=== PATIENT | female | born 1990 | race Two or more races ===

== ENCOUNTER 2019-07-18 11:49 | Inpatient (IN) | payer MEDICAID ==
[~2019-07-18 11:49] MED LIST: BUPIVACAINE HCL 0.5%/EPI 1:200000 INJ 1.8 ML CARTRIDGE ONE; FENTANYL CITRATE INJ/PF 100 MCG/2 ML AMPUL ONE; LIDOCAINE 2%/EPINEPHRINE INJ 1.7 ML CARTRIDGE ONE; MIDAZOLAM 2 MG/2 ML INJ ONE; PROPOFOL INJ 200 MG/20 ML VIAL IV ONE
[2019-07-18] MEDS ORDERED: OXYMETAZOLINE HCL 0.05% NASAL SPRAY 15 ML BOTTLE ONE (12:46)
[2019-07-18] MEDS ORDERED: FENTANYL CITRATE INJ/PF 100 MCG/2 ML AMPUL IV PRN ×3 (13:29)
[2019-07-18] MEDS ORDERED: MEPERIDINE HCL/PF INJ 25 MG/1 ML DISP.SYRIN IV PRN (13:29)
[2019-07-18] MEDS ORDERED: DIPHENHYDRAMINE HCL 50 MG/ML VIAL IV PRN (13:29)
[2019-07-18] MEDS ORDERED: PROMETHAZINE HCL INJ 25 MG/1 ML VIAL IV PRN (13:29)
[2019-07-18] MEDS ORDERED: SUCCINYLCHOLINE CHLORIDE INJ 200 MG/10 ML VIAL ONE (14:06)
--- NOTE | 2019-07-18 14:35 | Operative Report ---
Operative Report DATE OF SURGERY: 07/18/19 PREOPERATIVE DIAGNOSIS: Dental caries POSTOPERATIVE DIAGNOSIS: Same OPERATION: Surgical removal of all remaining teeth numbers 2, 3, 4, 5, 6, 12, 13, 14, 15, 19, 20, 21, 22, 23, 24, 25, 27, 28 and 29 with alveoloplasty of the upper left quadrant SURGEON: ROSAURA PETTIT ANESTHESIA: GA TISSUE REMOVED OR ALTERED: Teeth and bone which were discarded COMPLICATIONS: None ESTIMATED BLOOD LOSS: 25 mL INTRAOPERATIVE FINDINGS: Grossly decayed and nonrestorable teeth PROCEDURE: The patient was brought into operating room #4 and placed on the operating room table in supine position. General anesthesia was induced via a peripheral IV and continued utilizing nasoendotracheal intubation. The patient was then prepped and draped in the usual fashion for an intraoral procedure. A total of 4 carpules of 2% Lidocaine with 1:100K Epi and 2 carpules of 0.5% Marcaine with 1:200K Epi were delivered to the planned surgical sites via both infiltration and nerve block. The oral cavity and oropharynx were suctioned and a moistened oropharyngeal throat pack was placed. A bite block was used throughout the procedure. Full thickness mucoperisteal flaps were elevated. Ostectomy was completed as needed. Teeth were sectioned as needed. Teeth were delivered with elevators and forceps. Alveoloplasties were completed using rongeurs and bone files. All sites debrided and irrigated. No sinus exposure noted. Mandible intact post op. JIMMIE not visualized. Wounds reapproximated and sutured with 4-0 chromic gut. The oral cavity was suctioned and found to be free of debris. The throat pack was removed. The oropharynx was suctioned. Gauze packs were placed bilaterally to aid in continued hemastasis. The patient was awakened from general anesthesia, extubated in the operating room and taken to recovery in spontaneous breathing fashion.
[2019-07-18] MEDS ORDERED: OXYCODONE-ACETAMINOPHEN 5-325 MG TABLET ONE (14:58)
[2019-07-18] MEDS ORDERED: OXYCODONE-ACETAMINOPHEN 5-325 MG TABLET PO PRN (15:30)
[2019-07-18] MEDS ORDERED: MAG HYDROX/AL HYDROX/SIMETH SUSP 30 ML UDCUP PO PRN (19:36)
[2019-07-18] MEDS ORDERED: ONDANSETRON HCL INJ/PF 4 MG/2 ML SDV IV PRN (19:36)
[2019-07-18] MEDS ORDERED: MAGNESIUM HYDROXIDE SUSP 30 ML UDCUP PO PRN (19:36)
[2019-07-18] MEDS ORDERED: DIAZEPAM INJ 10 MG/2 ML DISP.SYRIN IV PRN (19:51)
[2019-07-18] MEDS ORDERED: ACETAMINOPHEN 325 MG TABLET PO PRN (19:51)
[2019-07-18] MEDS ORDERED: MORPHINE SULFATE 10 MG/ML INJ IV PRN ×2 (19:51→20:21)
[2019-07-18] MEDS ORDERED: ACETAMINOPHEN 650 MG SUPP.RECT PR PRN (19:51)
[2019-07-18] MEDS ORDERED: DEXTROSE 40% GEL 15 GM TUBE PO PRN ×2 (19:58)
[2019-07-18] MEDS ORDERED: GUAIFENESIN SYRP 200 MG/10 ML UDC PO PRN (19:58)
[2019-07-18] MEDS ORDERED: DEXTROSE 50%-WATER 25 GM/50 ML DISP.SYRIN IV PRN ×2 (19:58)
[2019-07-18] MEDS ORDERED: GLUCAGON,HUMAN RECOMB 1 MG INJ IM PRN (19:58)
--- NOTE | 2019-07-18 20:21 | RADIOLOGY REPORT (SQ) ---
EXAM DESCRIPTION: XR CHEST 1 VIEW COMPLETED DATE/TME: 07/18/2019 00:00 CLINICAL HISTORY: post op COMPARISON: None FINDINGS: Decreased lung volumes could be secondary to underinflation. The cardiac silhouette is prominent in size however could be secondary to AP technique. Crowding of the pulmonary vessels could be secondary to underinflation. No discrete arlene pulmonary edema noted. There is no pneumothorax. Increased opacity at the lung bases may represent atelectasis. IMPRESSION: Increased opacities at the lung bases may represent atelectasis. Decreased lung volumes could be secondary to underinflation. Recommend follow-up.
--- NOTE | 2019-07-18 20:24 | PDOC H&P ---
History of Present Illness Admission Date/PCP: 07/18/2019 19:59 FREDDY RODNEY DO Patient complains of: Postoperative hypoxia History of Present Illness: VIOLETTA SINGH is a 29 year old female who underwent oral surgery earlier today having her remaining teeth removed via ambulatory surgery by Dr. Sullivan with nasotracheal intubation anesthesia. She tolerated her surgery well but postoperatively was noted to be coughing and was unable to maintain an O2 sat greater than 90% on room air. Patient has Down syndrome and is cognitively unable to contribute to her history. She was in good health prior to surgery with an O2 sat of 100% on room air. Her O2 sat was 92 to 96% on 2 L of oxygen per nasal cannula and she appeared comfortable during my evaluation. The remainder of her vital signs have been stable throughout course. Due to her acute respiratory failure with hypoxia she is admitted observation status for further evaluation and treatment. Past Medical History Past Medical History: Taken from available records Cardiac Medical History: Reports: Hyperlipidema Denies: Coronary Artery Disease, Myocardial Infarction, Hypertension Pulmonary Medical History: Denies: Asthma, Bronchitis, Chronic Obstructive Pulmonary Disease (COPD), Pneumonia EENT Medical History: Reports: Nose - Allergic rhinitis Denies: Cataracts, Ears - Hearing aids Neurological Medical History: Reports: Seizures Denies: Hemorrhagic CVA, Ischemic CVA, Multiple Sclerosis Endocrine Medical History: Reports: Diabetes Mellitus Type 2, Obesity Denies: Diabetes Mellitus Type 1, Hyperthyroidism, Hypothyroidism Renal/ Medical History: Denies: Chronic Kidney Disease, Nephrolithiasis Malignancy Medical History: Reports: None GI Medical History: Denies: Cirrhosis, Gastroesophageal Reflux Disease, Hepatitis, Peptic Ulcer Disease Musculoskeltal Medical History: Denies: Arthritis, Gout Skin Medical History: Denies: Eczema, Psoriasis Psychiatric Medical History: Reports: Depression Denies: Alcohol Dependency, Substance Abuse, Tobacco Dependency Traumatic Medical History: Reports: None Hematology: Denies: Anemia, Bleeding Tendencies Infectious Medical History: Reports: None Past Surgical History Past Surgical History: Taken from available records Past Surgical History: Reports: Orthopedic Surgery - Correction of clubfoot Social History Information Source: Friend - [facility], [facility] Records Lives with: Skilled Nursing Smoking Status: Never Smoker Electronic Cigarette use?: Yes Frequency of Alcohol Use: None Hx Recreational Drug Use: No Drugs: None Hx Prescription Drug Abuse: No - Advance Directive Resuscitation Status: Full Code Surrogate healthcare decision maker:: Edgar Singh Family History Family History: Family history is unavailable Parental Family History Reviewed: No Children Family History Reviewed: No Sibling(s) Family History Reviewed.: No Medication/Allergy Home Medications: Atorvastatin Calcium [Lipitor 20 mg Tablet] 20 mg PO QHS 07/17/19 Escitalopram Oxalate [Lexapro 10 mg Tablet] 10 mg PO QHS 07/17/19 Loratadine [Claritin 10 mg Tablet] 10 mg PO DAILY 07/17/19 Sitagliptin Phos/Metformin HCl [Janumet 50-1,000 Mg Tablet] 1 each PO ASDIR PRN 07/17/19 Topiramate [Topamax 25 mg Tablet] 25 mg PO DAILY 07/17/19 Trazodone HCl [Desyrel] 100 mg PO ASDIR PRN 07/17/19 Allergies/Adverse Reactions: ENVIRONMENTAL Allergy (Uncoded 07/17/19 09:01) Review of Systems ROS unobtainable: Due to mental status - Cognitive impairment due to Down syndrome Physical Exam Vital Signs: Temp Pulse Resp BP Pulse Ox 97.9 F 74 14 118/85 96 07/18/19 14:55 07/18/19 19:00 07/18/19 19:00 07/18/19 19:00 07/18/19 19:00 Intake & Output 07/16/19 07/17/19 07/18/19 23:59 23:59 23:59 Intake Total 500 Balance 500 Weight 55.79 kg 55.79 kg General appearance: PRESENT: no acute distress, cooperative Head exam: PRESENT: atraumatic, normocephalic Eye exam: PRESENT: conjunctiva pink, other - Typical facies of Down syndrome. ABSENT: conjunctival injection, scleral icterus Ear exam: PRESENT: normal external ear exam. ABSENT: bleeding, drainage Mouth exam: PRESENT: dry mucosa, neck supple Neck exam: ABSENT: thyromegaly, tracheal deviation Respiratory exam: PRESENT: rales - Scattered coarse central rales, rhonchi - Scattered coarse central rhonchi, symmetrical, unlabored Cardiovascular exam: PRESENT: RRR. ABSENT: clicks, gallop, rubs Pulses: PRESENT: normal radial pulses, normal dorsalis pedis pul Vascular exam: PRESENT: normal capillary refill. ABSENT: pallor GI/Abdominal exam: PRESENT: normal bowel sounds, soft Rectal exam: PRESENT: deferred Extremities exam: ABSENT: joint swelling, pedal edema Musculoskeletal exam: PRESENT: deformity - Clubfoot correction noted. ABSENT: dislocation Neurological exam: PRESENT: alert, awake, CN II-XII grossly intact, other - Cognitively impaired Psychiatric exam: PRESENT: other - Calm, cognitively impaired unable to assess Skin exam: PRESENT: dry, intact, warm. ABSENT: jaundice, rash, urticaria Results Laboratory Results: 07/18/19 12:24 Serum HCG, Qual NEGATIVE Assessment and Plan - Diagnosis (1) Acute postoperative respiratory failure Is this a current diagnosis for this admission?: Yes Plan: Patient will be treated with supplemental oxygen via nasal cannula utilizing the O2 protocol. She will be monitored closely with continuous pulse ox monitoring. She will receive a pulmonary toilet utilizing Xopenex and Mucomyst. She will be symptomatically treated with Robitussin as needed for cough. Postoperative pain will be treated with Nubain 5 to 10 mg IV every 3 hours on an as-needed basis using a sliding scale. (2) Acute respiratory failure with hypoxia Is this a current diagnosis for this admission?: Yes Plan: Patient will be treated with supplemental oxygen via nasal cannula utilizing the O2 protocol. She will be monitored closely with continuous pulse ox monitoring. She will receive a pulmonary toilet utilizing Xopenex and Mucomyst. She will be symptomatically treated with Robitussin as needed for cough. (3) Diabetes mellitus type 2 in obese Is this a current diagnosis for this admission?: Yes Plan: Patient will be continued on a diabetic diet and her usual diabetic therapy. Hemoglobin A1c will be obtained to assess efficacy of current therapy. Before meals and at bedtime Accu-Cheks will be obtained and sliding scale insulin will be administered for hyperglycemia with a hypoglycemic protocol in place. (4) Hyperlipidemia Qualifiers: Hyperlipidemia type: unspecified Qualified Code(s): E78.5 - Hyperlipidemia, unspecified Is this a current diagnosis for this admission?: Yes Plan: Patient will be continued on her current hyperlipidemia therapy. A lipid profile will be obtained to assess the efficacy of current therapy. (5) Seizure disorder Is this a current diagnosis for this admission?: Yes Plan: Patient will be continued on her usual seizure control medication and will be observed closely with seizure precautions taken. (6) Depression Qualifiers: Depression Type: dysthymia Qualified Code(s): F34.1 - Dysthymic disorder Is this a current diagnosis for this admission?: Yes Plan: Patient will be continued on her usual psychotropic medication for treatment of her dysthymi/depression. (7) Down syndrome Is this a current diagnosis for this admission?: Yes Plan: Patient will be treated with supportive and symptomatic cares with careful attention paid to her cognitive dysfunction. - Time Time Spent with patient: 15-24 minutes Medications reviewed and adjusted accordingly: Yes Anticipated discharge: SNF - Inpatient Certification Based on my medical assessment, after consideration of the patient's comorbidities, presenting symptoms, or acuity I expect that the services needed warrant INPATIENT care.: No I certify that my determination is in accordance with my understanding of Medicare's requirements for reasonable and necessary INPATIENT services [42 CFR 412.3e].: No Medical Necessity: Failure to Improve With Outpatient Therapy, Significant Comorbidiites Make Outpatient Treatment Too Risky, Need Close Monitoring Due to Risk of Patient Decompensation, Need For IV Fluids, Need For Continuous Telemetry Monitoring, Need for Nebulizer Therapy and Monitoring of Response, Need for Neurological Checks, Need for Pain Control, Risk of Complication if Not Cared For in Hospital, Risk of Diagnosis Which Will Require Inpatient Eval/Care/Monitoring
[2019-07-18] MEDS: HEPARIN SOD (PORCINE) 5,000 UNIT/ML 1 ML VIAL SUBCUT SCH (21:45)
[2019-07-18] MEDS: FAMOTIDINE INJ/PF 20 MG/2 ML SDV IV SCH (21:45)
[2019-07-18] MEDS: TRAZODONE HCL 50 MG TABLET PO SCH (21:45)
[2019-07-18] MEDS: INSULIN REG, HUMAN 100 UNIT/ML 3 ML VIAL (PYX) SUBCUT SCH (21:47)
[2019-07-18] MEDS: ATORVASTATIN CALCIUM 20 MG TABLET PO SCH (22:00)
[2019-07-18] MEDS: ESCITALOPRAM OXALATE 10 MG TABLET PO SCH (22:00)
[2019-07-18] MEDS: ACETYLCYSTEINE 20% SOLN 800 MG/4 ML VIAL.NEB NEB SCH (22:08)
[2019-07-18] MEDS: LEVALBUTEROL HCL NEB 0.63 MG/3 ML AMPUL NEB PRN (22:09)
[2019-07-19 04:35] LABS: HEMATOCRIT 36.7 % (36.0-47.0); MEAN CORPUSCULAR HEMOGLOBIN 26.3 pg (27.0-33.4); MEAN CORPUSCULAR HGB CONC 32.7 g/dL (32.0-36.0); MEAN CORPUSCULAR VOLUME 81 fl (80-97); PLATELET COUNT 231 10^3/uL (150-450); RED BLOOD COUNT 4.55 10^6/uL (3.72-5.28); RED CELL DISTRIBUTION WIDTH 16.1 % (11.5-14.0); WHITE BLOOD COUNT 13.3 10^3/uL (4.0-10.5)
[2019-07-19 05:02] LABS: ANION GAP 11 (5-19); BLOOD UREA NITROGEN 13 mg/dL (7-20); CALCIUM 8.7 mg/dL (8.4-10.2); CARBON DIOXIDE 24 mmol/L (22-30); CHLORIDE 103 mmol/L (98-107); GLUCOSE 174 mg/dL (75-110); POTASSIUM 4.5 mmol/L (3.6-5.0)
[2019-07-19] MEDS: HEPARIN SOD (PORCINE) 5,000 UNIT/ML 1 ML VIAL SUBCUT SCH ×3 (05:58→23:07)
[2019-07-19] MEDS: LEVALBUTEROL HCL NEB 0.63 MG/3 ML AMPUL NEB PRN ×2 (08:57→19:35)
[2019-07-19] MEDS: ACETYLCYSTEINE 20% SOLN 800 MG/4 ML VIAL.NEB NEB SCH ×2 (08:58→19:34)
[2019-07-19] MEDS ORDERED: LORATADINE 10 MG TABLET PO SCH (10:00)
[2019-07-19] MEDS: INSULIN REG, HUMAN 100 UNIT/ML 3 ML VIAL (PYX) SUBCUT SCH ×4 (10:20→23:07)
[2019-07-19] MEDS: METFORMIN HCL 500 MG TABLET PO SCH ×2 (10:25→17:48)
[2019-07-19] MEDS: SITAGLIPTIN PHOSPHATE 50 MG TABLET PO SCH ×2 (10:25→17:49)
[2019-07-19] MEDS: FAMOTIDINE INJ/PF 20 MG/2 ML SDV IV SCH (10:25)
[2019-07-19] MEDS: DOCUSATE SODIUM 100 MG/10 ML UDC PO SCH ×2 (10:25→17:49)
[2019-07-19] MEDS: TOPIRAMATE 25 MG TABLET PO SCH (10:26)
--- NOTE | 2019-07-19 13:23 | PDOC PROGRESS REPORT ---
Subjective Progress Note for:: 07/19/19 Subjective:: The patient has very congested breath sounds. She has slid down in the bed. She is also somewhat tachycardic. Interaction was limited due to her leg which barrier and underlying Down syndrome Reason For Visit: ACUTE RESPIRATORY FAILURE WITH HYPOXIA(POST Physical Exam Vital Signs: Temp Pulse Resp BP Pulse Ox 97.4 F 111 H 17 95/59 L 72 L 07/19/19 11:21 07/19/19 11:21 07/19/19 11:21 07/19/19 11:21 07/19/19 11:21 Pulse Oximeter Continuous Start: 07/18/19 19:55 Freq: RTQ4 Status: Active Protocol: Document 07/19/19 09:01 SAQIB (Rec: 07/19/19 09:06 [facility] [id number]) Pulse Oximetry Assessment Oxygen Flow Rate (L/min) 2 Oxygen Delivery Method Nasal Cannula Fraction of Inspired Oxygen (FIO2) 28 Equipment Usage Equipment Standby Continuous SpO2 Machine # [id number] Intake & Output 07/18/19 07/19/19 07/20/19 06:59 06:59 06:59 Intake Total 800 360 Output Total 50 Balance 750 360 Weight 55.79 kg 54.9 kg General appearance: PRESENT: mild distress Teeth exam: PRESENT: other - Extensive dental surgery Respiratory exam: PRESENT: rhonchi, symmetrical, tachypnea. ABSENT: rales, wheezes Cardiovascular exam: PRESENT: +S1, +S2, tachycardia GI/Abdominal exam: PRESENT: normal bowel sounds, soft. ABSENT: distended, tenderness Rectal exam: PRESENT: deferred Extremities exam: ABSENT: pedal edema Musculoskeletal exam: PRESENT: normal inspection Neurological exam: PRESENT: alert, awake, other - Unable to assess orientation due to language barrier Psychiatric exam: PRESENT: flat affect. ABSENT: agitated, anxious Results Laboratory Results: 07/19/19 03:38 07/19/19 03:38 07/19/19 07/19/19 03:38 03:38 WBC 13.3 H RBC 4.55 Hgb 12.0 Hct 36.7 MCV 81 MCH 26.3 L MCHC 32.7 RDW 16.1 H Plt Count 231 Sodium 137.7 Potassium 4.5 Chloride 103 Carbon Dioxide 24 Anion Gap 11 BUN 13 Creatinine 0.71 Est GFR ( Amer) > 60 Glucose 174 H Calcium 8.7 Magnesium 1.8 Impressions: Chest X-Ray 07/18/19 00:00 IMPRESSION: Increased opacities at the lung bases may represent atelectasis. Decreased lung volumes could be secondary to underinflation. Recommend follow-up. Assessment and Plan - Diagnosis (1) Acute postoperative respiratory failure Is this a current diagnosis for this admission?: Yes Plan: Patient will be treated with supplemental oxygen via nasal cannula utilizing the O2 protocol. She will be monitored closely with continuous pulse ox monitoring. She will receive a pulmonary toilet utilizing Xopenex and Mucomyst. She will be symptomatically treated with Robitussin as needed for cough. Postoperative pain will be treated with Nubain 5 to 10 mg IV every 3 hours on an as-needed basis using a sliding scale. 07/19/2019-patient still on supplemental oxygen. With her oral surgery and congested breath sounds pneumonia is certainly a possibility. I will repeat x- ray in the morning and initiate antibiotic therapy. (2) Acute respiratory failure with hypoxia Is this a current diagnosis for this admission?: Yes Plan: Patient will be treated with supplemental oxygen via nasal cannula utilizing the O2 protocol. She will be monitored closely with continuous pulse ox monitoring. She will receive a pulmonary toilet utilizing Xopenex and Mucomyst. She will be symptomatically treated with Robitussin as needed for cough. 07/19/2019-continue supplemental oxygen. Levofloxacin added for possible pneumonia. (3) Diabetes mellitus type 2 in obese Is this a current diagnosis for this admission?: Yes Plan: Patient will be continued on a diabetic diet and her usual diabetic therapy. Hemoglobin A1c will be obtained to assess efficacy of current therapy. Before meals and at bedtime Accu-Cheks will be obtained and sliding scale insulin will be administered for hyperglycemia with a hypoglycemic protocol in place. [id number] exhibit fairly good control. Continue current regimen. (4) Hyperlipidemia Qualifiers: Hyperlipidemia type: unspecified Qualified Code(s): E78.5 - Hyperlipidemia, unspecified Is this a current diagnosis for this admission?: Yes Plan: Patient will be continued on her current hyperlipidemia therapy. A lipid profile will be obtained to assess the efficacy of current therapy. 07/19/2019-continue current regimen. (5) Seizure disorder Is this a current diagnosis for this admission?: Yes Plan: Patient will be continued on her usual seizure control medication and will be observed closely with seizure precautions taken. 07/19/2019-stable on current medication regimen. (6) Depression Qualifiers: Depression Type: dysthymia Qualified Code(s): F34.1 - Dysthymic disorder Is this a current diagnosis for this admission?: Yes Plan: Patient will be continued on her usual psychotropic medication for treatment of her dysthymi/depression. 07/19/2019-continue current medications. Patient does seem to mid and is likely overwhelmed with remaining in the hospital. (7) Down syndrome Is this a current diagnosis for this admission?: Yes Plan: Patient will be treated with supportive and symptomatic cares with careful attention paid to her cognitive dysfunction. 07/19/2019-continued supportive care. (8) Pneumonia Qualifiers: Pneumonia type: due to unspecified organism Laterality: unspecified laterality Lung location: unspecified part of lung Qualified Code(s): J18.9 - Pneumonia, unspecified organism Is this a current diagnosis for this admission?: Yes Plan: 07/19/2019-the patient had oral surgery with subsequent respiratory failure. It is certainly possible that she aspirated. The initial chest x-ray was indeterminate. I have ordered another chest x-ray. Her white blood cell count was slightly elevated at 13,000. She did not have a high fever but under the circumstances I have opted to initiate levofloxacin therapy for suspected pneumonia. - Time Time Spent with patient: Less than 15 minutes Medications reviewed and adjusted accordingly: Yes Anticipated discharge: Home Within: within 48 hours
[2019-07-19] MEDS: MORPHINE SULFATE 10 MG/ML INJ IV PRN ×2 (20:09→23:08)
[2019-07-19] MEDS: TRAZODONE HCL 50 MG TABLET PO SCH (23:06)
[2019-07-19] MEDS: ESCITALOPRAM OXALATE 10 MG TABLET PO SCH (23:07)
[2019-07-19] MEDS: ATORVASTATIN CALCIUM 20 MG TABLET PO SCH (23:07)
[2019-07-19] MEDS: LEVOFLOXACIN 750 MG/D5W RTU 750 MG/150 ML RTUPB IV SCH (23:10)
[2019-07-19] MEDS ORDERED: FUROSEMIDE INJ/PF 40 MG/4 ML SDV ONE (23:29)
[2019-07-19 23:53] LABS: ARTERIAL BLOOD BASE EXCESS -5.2 mmol/L; ARTERIAL BLOOD O2 SATURATION 76.2 % (94-98); ARTERIAL BLOOD PCO2 56.5 mmHg (35-45); ARTERIAL BLOOD PH 7.23 (7.35-7.45); ARTERIAL BLOOD PO2 48.7 mmHg (80-100); ARTERIAL BLOOD TOTAL CO2 24.7 mmol/L (21-25)
[2019-07-19 23:59] LABS: ARTERIAL BLOOD FIO2 6L
[2019-07-20] MEDS ORDERED: MIDAZOLAM HCL 50 MG/100 ML RTUINJ ONE (00:25)
[2019-07-20 00:38] LABS: ABSOLUTE BASOPHILS # (AUTO) 0.1 10^3/uL (0.0-0.2); ABSOLUTE LYMPHOCYTES (AUTO) 1.7 10^3/uL (0.5-4.7); ABSOLUTE MONOCYTES (AUTO) 0.6 10^3/uL (0.1-1.4); BASOPHILS % (AUTO) 0.3 % (0-2); EOSINOPHILS % (AUTO) 0.1 % (0-6); HEMATOCRIT 35.8 % (36.0-47.0); HEMOGLOBIN 11.5 g/dL (12.0-15.5); LYMPHOCYTES % (AUTO) 11.6 % (13-45); MEAN CORPUSCULAR HEMOGLOBIN 26.3 pg (27.0-33.4); MEAN CORPUSCULAR HGB CONC 32.1 g/dL (32.0-36.0); MEAN CORPUSCULAR VOLUME 82 fl (80-97); MONOCYTES % (AUTO) 4.2 % (3-13); PLATELET COUNT 225 10^3/uL (150-450); RED BLOOD COUNT 4.39 10^6/uL (3.72-5.28); RED CELL DISTRIBUTION WIDTH 16.9 % (11.5-14.0); SEGMENTED NEUTROPHILS % (AUTO) 83.8 % (42-78); TOTAL CELLS COUNTED % (AUTO) 100 %; WHITE BLOOD COUNT 14.3 10^3/uL (4.0-10.5)
[2019-07-20] MEDS ORDERED: PROPOFOL INJ 200 MG/20 ML VIAL IV ONE (00:41)
[2019-07-20 00:55] LABS: ANION GAP 13 (5-19); BLOOD UREA NITROGEN 9 mg/dL (7-20); CARBON DIOXIDE 24 mmol/L (22-30); CHLORIDE 103 mmol/L (98-107); GLUCOSE 172 mg/dL (75-110); POTASSIUM 4.1 mmol/L (3.6-5.0)
--- NOTE | 2019-07-20 01:15 | Progress Note ---
Provider Note Provider Note: Critical care note: 07/19/2019 Critical care start time: 11:33 PM Critical care issue: Acute respiratory distress A rapid response was called by the patient's nurse when she developed acute respiratory distress that was not relieved by administration of 2 mg of intravenous morphine. The patient was struggling for breath and had become combative requiring assistance to keep a nonrebreather mask in functional position. Patient's examination revealed fine rales present throughout all lung ramos with very coarse rhonchi present in the central lung ramos and a prominent bruit or murmur heard in the left upper chest. Patient was extremely anxious and combative throughout the time of my evaluation. Initial oxygen saturation was found to be 72% per O2 sat monitor fixed patient's great toe. Patient was given 40 mg of Lasix IV and was transferred to the ICU where she was endotracheally intubated and placed on an ventilator for respiratory support. The patient's initial respiratory settings are for a rate of 16, a tidal volume of 450, and FiO2 of 40% and a PEEP of 6. ABGs will be obtained to evaluate the patient's response to ventilator support. Adjustments to ventilator settings will be made as required. Critical care end time: 12:49 AM (07/20/2019) Total critical care time: 21 minutes
--- NOTE | 2019-07-20 01:30 | RADIOLOGY REPORT (SQ) ---
EXAM DESCRIPTION: RadLex: XR CHEST 1 VIEW CLINICAL HISTORY: 29 years Female, sob FINDINGS: Since 07/18/2019, endotracheal tube is in place, tip within 1 cm of the martha. Enteric tube tip is in the distal stomach. Dense diffuse bilateral pulmonary infiltrates have developed. No pneumothorax. No significant pleural effusion. There may be a small right pleural effusion. No pneumothorax. Mediastinum is grossly unchanged, although difficult to evaluate due to the dense pulmonary consolidation. IMPRESSION: 1. Endotracheal tube tip within 1 cm of martha. Consider repositioning. 2. Nasogastric tube tip in the stomach 3. Significantly worse dense diffuse bilateral infiltrates
[2019-07-20] MEDS: FAMOTIDINE INJ/PF 20 MG/2 ML SDV IV SCH ×2 (01:32→11:17)
[2019-07-20] MEDS: MORPHINE SULFATE 10 MG/ML INJ IV PRN ×2 (01:33→18:17)
[2019-07-20] MEDS: MIDAZOLAM HCL 50 MG/100 ML RTUINJ IV PRN ×4 (01:34→22:11)
[2019-07-20] MEDS ORDERED: PROPOFOL 1,000 MG/100 ML INFUS..BTL IV ONE (02:49)
[2019-07-20] MEDS: PROPOFOL 1,000 MG/100 ML INFUS..BTL IV PRN ×3 (02:54→19:15)
[2019-07-20] MEDS: HEPARIN SOD (PORCINE) 5,000 UNIT/ML 1 ML VIAL SUBCUT SCH ×3 (05:24→22:16)
[2019-07-20 07:36] LABS: ABSOLUTE MONOCYTES (AUTO) 0.4 10^3/uL (0.1-1.4); ABSOLUTE NEUT (AUTO) 9.6 10^3/uL (1.7-8.2); BASOPHILS % (AUTO) 0.1 % (0-2); EOSINOPHILS % (AUTO) 0.1 % (0-6); HEMATOCRIT 31.9 % (36.0-47.0); HEMOGLOBIN 10.3 g/dL (12.0-15.5); MEAN CORPUSCULAR HEMOGLOBIN 26.2 pg (27.0-33.4); MEAN CORPUSCULAR HGB CONC 32.3 g/dL (32.0-36.0); MEAN CORPUSCULAR VOLUME 81 fl (80-97); MONOCYTES % (AUTO) 3.4 % (3-13); PLATELET COUNT 170 10^3/uL (150-450); RED BLOOD COUNT 3.93 10^6/uL (3.72-5.28); RED CELL DISTRIBUTION WIDTH 16.6 % (11.5-14.0); SEGMENTED NEUTROPHILS % (AUTO) 87.4 % (42-78); TOTAL CELLS COUNTED % (AUTO) 100 %
[2019-07-20] MEDS: RINGERS SOLUTION,LACTATED 1,000 ML IV PRN ×3 (08:05→22:08)
[2019-07-20] MEDS ORDERED: NORMAL SALINE 1000 ML 1,000 ML IV PRN (08:05)
[2019-07-20] MEDS: LEVALBUTEROL HCL NEB 0.63 MG/3 ML AMPUL NEB PRN ×2 (08:27→20:25)
[2019-07-20] MEDS: ACETYLCYSTEINE 20% SOLN 800 MG/4 ML VIAL.NEB NEB SCH ×2 (08:27→20:25)
[2019-07-20 09:16] LABS: ARTERIAL BLOOD BASE EXCESS -2.5 mmol/L; ARTERIAL BLOOD FIO2 80%; ARTERIAL BLOOD H2CO3 1.46 mmol/L (1.05-1.35); ARTERIAL BLOOD HCO3 23.9 mmol/L (20-24); ARTERIAL BLOOD O2 SATURATION 91.9 % (94-98); ARTERIAL BLOOD PCO2 48.6 mmHg (35-45); ARTERIAL BLOOD PH 7.31 (7.35-7.45); ARTERIAL BLOOD PO2 68.2 mmHg (80-100); ARTERIAL BLOOD TOTAL CO2 25.4 mmol/L (21-25)
[2019-07-20] MEDS ORDERED: ACETAMINOPHEN SOLN 325 MG/10.15 ML UDCUP NG PRN (09:51)
[2019-07-20] MEDS: INSULIN REG, HUMAN 100 UNIT/ML 3 ML VIAL (PYX) SUBCUT SCH ×3 (09:53→16:36)
[2019-07-20] MEDS ORDERED: MAGNESIUM HYDROXIDE SUSP 30 ML UDCUP NG PRN (10:00)
[2019-07-20] MEDS ORDERED: GUAIFENESIN SYRP 200 MG/10 ML UDC NG PRN (10:00)
[2019-07-20] MEDS ORDERED: MULTIVITAMIN TABLET PO SCH (10:00)
[2019-07-20] MEDS ORDERED: MAG HYDROX/AL HYDROX/SIMETH SUSP 30 ML UDCUP NG PRN (10:00)
--- NOTE | 2019-07-20 10:31 | PDOC PROGRESS REPORT ---
Subjective Progress Note for:: 07/20/19 Subjective:: Pt is intubated and sedated. Reason For Visit: ACUTE RESPIRATORY FAILURE WITH HYPOXIA(POST Physical Exam Vital Signs: Temp Pulse Resp BP Pulse Ox 101.2 F H 88 15 88/55 L 96 07/20/19 08:00 07/20/19 08:29 07/20/19 08:29 07/20/19 08:00 07/20/19 08:29 Pulse Oximeter Continuous Start: 07/18/19 19:55 Freq: RTQ4 Status: Hold Protocol: Document 07/19/19 19:35 [facility] (Rec: 07/19/19 20:15 [facility] [id number]) Pulse Oximetry Assessment Oxygen Saturation (92-100) 92 Oxygen Flow Rate (L/min) 6 Oxygen Delivery Method Nasal Cannula Fraction of Inspired Oxygen (FIO2) 44 Equipment Usage Equipment in Use Continuous SpO2 Machine # [id number] Intake & Output 07/19/19 07/20/19 07/21/19 06:59 06:59 06:59 Intake Total 800 841 Output Total 50 1415 20 Balance 750 -574 -20 Weight 54.9 kg 56.6 kg General appearance: PRESENT: no acute distress Head exam: PRESENT: atraumatic Additional Comments: Sedated Eye exam: PRESENT: conjunctiva pink, EOMI, PERRLA. ABSENT: scleral icterus Ear exam: PRESENT: normal external ear exam Mouth exam: PRESENT: moist, tongue midline Additional comments: Has had recent oral surgery. Neck exam: PRESENT: full ROM. ABSENT: carotid bruit, JVD, lymphadenopathy, thyromegaly Respiratory exam: PRESENT: crackles, unlabored Cardiovascular exam: PRESENT: RRR Pulses: PRESENT: normal dorsalis pedis pul, +2 pedal pulses bilateral Vascular exam: PRESENT: normal capillary refill GI/Abdominal exam: PRESENT: soft Rectal exam: PRESENT: deferred Extremities exam: PRESENT: full ROM Musculoskeletal exam: PRESENT: full ROM Additional comments: Sedated Skin exam: PRESENT: dry, intact, warm. ABSENT: cyanosis, rash Results Laboratory Results: 07/20/19 07:10 07/20/19 00:23 07/19/19 07/20/19 07/20/19 23:44 00:23 00:23 WBC 14.3 H RBC 4.39 Hgb 11.5 L Hct 35.8 L MCV 82 MCH 26.3 L MCHC 32.1 RDW 16.9 H Plt Count 225 Seg Neutrophils % 83.8 H Carbonic Acid 1.70 H HCO3/H2CO3 Ratio 13:1 ABG pH 7.23 L ABG pCO2 56.5 H ABG pO2 48.7 L ABG HCO3 23.0 ABG O2 Saturation 76.2 L ABG Base Excess -5.2 FiO2 6L Sodium 140.1 Potassium 4.1 Chloride 103 Carbon Dioxide 24 Anion Gap 13 BUN 9 Creatinine 0.82 Est GFR ( Amer) > 60 Glucose 172 H Calcium 8.0 L 07/20/19 07/20/19 07:10 09:07 WBC 11.0 H RBC 3.93 Hgb 10.3 L Hct 31.9 L MCV 81 MCH 26.2 L MCHC 32.3 RDW 16.6 H Plt Count 170 Seg Neutrophils % 87.4 H Carbonic Acid 1.46 H HCO3/H2CO3 Ratio 16:1 ABG pH 7.31 L ABG pCO2 48.6 H ABG pO2 68.2 L ABG HCO3 23.9 ABG O2 Saturation 91.9 L ABG Base Excess -2.5 FiO2 80% Sodium Potassium Chloride Carbon Dioxide Anion Gap BUN Creatinine Est GFR ( Amer) Glucose Calcium Impressions: Chest X-Ray 07/19/19 00:00 IMPRESSION: 1. Endotracheal tube tip within 1 cm of martha. Consider repositioning. 2. Nasogastric tube tip in the stomach 3. Significantly worse dense diffuse bilateral infiltrates Assessment & Plan - Diagnosis (1) ARDS (adult respiratory distress syndrome) Is this a current diagnosis for this admission?: Yes Plan: This patient has a CXR that has changed from clear to one of bilateral fluffy infiltrates. There i a high aspiration risk with Down's syndroma and my sense is this is the case given the rapidity of symptoms. She has a PaO2/FIO2 ration of 85. We will initiate low volume ventilation at 6-8cc/kg tidal volume, rate of 10 or less. Allow pH to be 7.25 or higher. Peak pressures 34, mean pressures about 17. Will start TF with glucerna at 30cc. (2) Diabetes mellitus type 2 in obese Is this a current diagnosis for this admission?: Yes Plan: Will need sliding scale for TF. By wt she sill need about 1800 calories. (3) Down syndrome Is this a current diagnosis for this admission?: Yes Plan: With Down's they frequently have large tongues, high arched palettes and atlanto-axial subluxation. She was a relatively easy intubation but will try to avoid hyperextension of neck. (4) Seizure disorder Is this a current diagnosis for this admission?: Yes Plan: Not active. - Time Time Spent with patient: 35 or more minutes Total Critical Time (Minutes): 40 Medications reviewed and adjusted accordingly: Yes Anticipated discharge: Home Within: Other - Too early to tell but may have a prolonged ventilator course - Inpatient Certification Based on my medical assessment, after consideration of the patient's comorbidities, presenting symptoms, or acuity I expect that the services needed warrant INPATIENT care.: Yes I certify that my determination is in accordance with my understanding of Medicare's requirements for reasonable and necessary INPATIENT services [42 CFR 412.3e].: Yes Medical Necessity: Failure to Improve With Outpatient Therapy, Significant Comorbidiites Make Outpatient Treatment Too Risky, Need Close Monitoring Due to Risk of Patient Decompensation, Need For IV Fluids, Need For Continuous Telemetry Monitoring, Need for Nebulizer Therapy and Monitoring of Response, Risk of Complication if Not Cared For in Hospital, Risk of Diagnosis Which Will Require Inpatient Eval/Care/Monitoring
[2019-07-20] MEDS: METFORMIN HCL 500 MG TABLET PO SCH (11:00)
[2019-07-20] MEDS: LORATADINE 10 MG TABLET NG SCH (11:01)
[2019-07-20] MEDS: SITAGLIPTIN PHOSPHATE 50 MG TABLET PO SCH (11:01)
[2019-07-20] MEDS: DOCUSATE SODIUM 100 MG/10 ML UDC NG SCH ×2 (11:06→18:16)
[2019-07-20] MEDS: MULTIVITAMIN ORAL LIQUID 60 ML NG SCH (11:08)
[2019-07-20] MEDS: TOPIRAMATE 25 MG TABLET PO SCH (11:17)
[2019-07-20] MEDS ORDERED: FAMOTIDINE 20 MG TABLET NG SCH (11:30)
[2019-07-20] MEDS: FAMOTIDINE 20 MG TABLET NG SCH ×2 (11:47→22:15)
[2019-07-20] MEDS: SITAGLIPTIN PHOSPHATE 50 MG TABLET NG SCH (16:40)
[2019-07-20] MEDS: METFORMIN HCL 500 MG TABLET NG SCH (16:40)
[2019-07-20] MEDS: HYDROCORTISONE SOD SUCCINATE INJ/PF 100 MG/2 ML SDV IV SCH (17:23)
[2019-07-20] MEDS ORDERED: FUROSEMIDE INJ/PF 20 MG/2 ML SDV IV ONE (18:00)
[2019-07-20] MEDS ORDERED: DOPAMINE HCL/DEXTROSE 5%-WATER 800 MG/250 ML RTUINJ IV ONE (19:02)
[2019-07-20] MEDS ORDERED: DOPAMINE HCL/DEXTROSE 5%-WATER 400 MG/250 ML RTUINJ IV PRN (19:02)
[2019-07-20] MEDS ORDERED: BISACODYL 10 MG SUPP.RECT PR ONE (21:30)
[2019-07-20] MEDS: TRAZODONE HCL 50 MG TABLET NG SCH (22:00)
[2019-07-20] MEDS: LEVOFLOXACIN 750 MG/D5W RTU 750 MG/150 ML RTUPB IV SCH (22:15)
[2019-07-20] MEDS: ATORVASTATIN CALCIUM 20 MG TABLET NG SCH (22:15)
[2019-07-20] MEDS: ESCITALOPRAM OXALATE 10 MG TABLET NG SCH (22:16)
[2019-07-21] MEDS: METOCLOPRAMIDE HCL INJ/PF 10 MG/2 ML SDV IV SCH ×4 (00:20→17:28)
[2019-07-21] MEDS: INSULIN REG, HUMAN 100 UNIT/ML 3 ML VIAL (PYX) SUBCUT SCH ×4 (00:20→19:30)
[2019-07-21] MEDS: HYDROCORTISONE SOD SUCCINATE INJ/PF 100 MG/2 ML SDV IV SCH ×3 (02:17→17:28)
[2019-07-21 05:03] LABS: ABSOLUTE MONOCYTES (AUTO) 0.6 10^3/uL (0.1-1.4); ABSOLUTE NEUT (AUTO) 12.4 10^3/uL (1.7-8.2); BASOPHILS % (AUTO) 0.1 % (0-2); EOSINOPHILS % (AUTO) 0.1 % (0-6); HEMATOCRIT 30.1 % (36.0-47.0); HEMOGLOBIN 9.7 g/dL (12.0-15.5); LYMPHOCYTES % (AUTO) 6.9 % (13-45); MEAN CORPUSCULAR HEMOGLOBIN 26.2 pg (27.0-33.4); MEAN CORPUSCULAR HGB CONC 32.4 g/dL (32.0-36.0); MEAN CORPUSCULAR VOLUME 81 fl (80-97); MONOCYTES % (AUTO) 4.3 % (3-13); PLATELET COUNT 182 10^3/uL (150-450); RED BLOOD COUNT 3.72 10^6/uL (3.72-5.28); RED CELL DISTRIBUTION WIDTH 16.5 % (11.5-14.0); SEGMENTED NEUTROPHILS % (AUTO) 88.6 % (42-78); TOTAL CELLS COUNTED % (AUTO) 100 %; WHITE BLOOD COUNT 14.1 10^3/uL (4.0-10.5)
[2019-07-21 05:28] LABS: ALBUMIN 2.9 g/dL (3.5-5.0); ALKALINE PHOSPHATASE 67 U/L (38-126); ANION GAP 10 (5-19); ASPARTATE AMINO TRANSFERASE 40 U/L (14-36); BILIRUBIN,DIRECT 0.2 mg/dL (0.0-0.4); BILIRUBIN,TOTAL 0.4 mg/dL (0.2-1.3); BLOOD UREA NITROGEN 17 mg/dL (7-20); CALCIUM 7.5 mg/dL (8.4-10.2); CARBON DIOXIDE 27 mmol/L (22-30); CHLORIDE 104 mmol/L (98-107); GLUCOSE 169 mg/dL (75-110); POTASSIUM 3.6 mmol/L (3.6-5.0); TOTAL PROTEIN 6.3 g/dL (6.3-8.2)
[2019-07-21 05:28] LABS: ARTERIAL BLOOD BASE EXCESS 0.8 mmol/L; ARTERIAL BLOOD H2CO3 1.22 mmol/L (1.05-1.35); ARTERIAL BLOOD HCO3 25.4 mmol/L (20-24); ARTERIAL BLOOD O2 SATURATION 99.6 % (94-98); ARTERIAL BLOOD PCO2 40.6 mmHg (35-45); ARTERIAL BLOOD PH 7.42 (7.35-7.45); ARTERIAL BLOOD PO2 255.7 mmHg (80-100); ARTERIAL BLOOD TOTAL CO2 26.7 mmol/L (21-25)
[2019-07-21 05:35] LABS: ARTERIAL BLOOD FIO2 75%
[2019-07-21] MEDS: HEPARIN SOD (PORCINE) 5,000 UNIT/ML 1 ML VIAL SUBCUT SCH ×3 (06:16→22:01)
[2019-07-21] MEDS: PROPOFOL 1,000 MG/100 ML INFUS..BTL IV PRN ×3 (07:10→22:02)
--- NOTE | 2019-07-21 07:20 | RADIOLOGY REPORT (SQ) ---
Chest single view on 07/21/2019 at 6:45 AM CLINICAL INDICATION: Tube placement COMPARISON: 07/20/2019 FINDINGS: ET tube tip is in the lower thoracic trachea only approximately 1.4 cm above the level of the martha. Would recommend retraction of the ET tube by 2 cm for more optimal positioning. NG tube extends into the stomach and below the level of this film. There is mild elevation of the right hemidiaphragm. Mild cardiomegaly is noted. There has been improvement in bilateral opacities consistent with improving edema and/or pneumonia. IMPRESSION: 1. ET tube tip is in the lower thoracic trachea, consider retraction as above. 2. Improvement in bilateral edema and/or pneumonia.
--- NOTE | 2019-07-21 08:29 | PDOC PROGRESS REPORT ---
Subjective Progress Note for:: 07/21/19 Subjective:: Sedated, intubated Reason For Visit: ARDS Physical Exam Vital Signs: Temp Pulse Resp BP Pulse Ox 99 F 88 15 89/63 L 100 07/21/19 04:00 07/20/19 22:00 07/21/19 06:04 07/21/19 06:04 07/21/19 06:04 Pulse Oximeter Continuous Start: 07/18/19 19:55 Freq: RTQ4 Status: Hold Protocol: Document 07/19/19 19:35 [facility] (Rec: 07/19/19 20:15 [facility] [id number]) Pulse Oximetry Assessment Oxygen Saturation (92-100) 92 Oxygen Flow Rate (L/min) 6 Oxygen Delivery Method Nasal Cannula Fraction of Inspired Oxygen (FIO2) 44 Equipment Usage Equipment in Use Continuous SpO2 Machine # [id number] Intake & Output 07/20/19 07/21/19 07/22/19 06:59 06:59 06:59 Intake Total 841 1556 Output Total 1415 2046 Balance -574 -490 Weight 56.6 kg 58.9 kg General appearance: PRESENT: no acute distress Head exam: PRESENT: atraumatic, normocephalic Additional Comments: Sedated and intubated Ear exam: PRESENT: normal external ear exam Mouth exam: PRESENT: dry mucosa Additional comments: Bleeding from touch extraction has stopped. Teeth exam: PRESENT: poor dentation Additional comments: Full, thick neck. Respiratory exam: PRESENT: crackles Cardiovascular exam: PRESENT: RRR Additional comments: Pulses weak. Unable to obtain even a femoral A-line. Vascular exam: PRESENT: normal capillary refill GI/Abdominal exam: PRESENT: soft Additonal comments: NG had much output overnight. This is C/W an ileus. Continue NG suction, hold TF for now. Let reglan and dulcolax work No distended loops of bowel seen on CXR. Rectal exam: PRESENT: deferred Gentrourinary exam: PRESENT: indwelling catheter Extremities exam: PRESENT: full ROM Musculoskeletal exam: PRESENT: normal inspection Neurological exam: PRESENT: altered Additional comments: Sedated on diprivan and versed. Sedation level at -3,4 RASS purposefully for control of respirations. Skin exam: PRESENT: dry Results Laboratory Results: 07/21/19 04:30 07/21/19 04:30 07/20/19 07/21/19 07/21/19 09:07 04:30 04:30 WBC 14.1 H RBC 3.72 Hgb 9.7 L Hct 30.1 L MCV 81 MCH 26.2 L MCHC 32.4 RDW 16.5 H Plt Count 182 Seg Neutrophils % 88.6 H Carbonic Acid 1.46 H HCO3/H2CO3 Ratio 16:1 ABG pH 7.31 L ABG pCO2 48.6 H ABG pO2 68.2 L ABG HCO3 23.9 ABG O2 Saturation 91.9 L ABG Base Excess -2.5 FiO2 80% Sodium 141.3 Potassium 3.6 Chloride 104 Carbon Dioxide 27 Anion Gap 10 BUN 17 Creatinine 0.84 Est GFR ( Amer) > 60 Glucose 169 H Calcium 7.5 L Total Bilirubin 0.4 AST 40 H Alkaline Phosphatase 67 Total Protein 6.3 Albumin 2.9 L 07/21/19 05:10 WBC RBC Hgb Hct MCV MCH MCHC RDW Plt Count Seg Neutrophils % Carbonic Acid 1.22 HCO3/H2CO3 Ratio 20:1 ABG pH 7.42 ABG pCO2 40.6 ABG pO2 255.7 H ABG HCO3 25.4 H ABG O2 Saturation 99.6 H ABG Base Excess 0.8 FiO2 75% Sodium Potassium Chloride Carbon Dioxide Anion Gap BUN Creatinine Est GFR ( Amer) Glucose Calcium Total Bilirubin AST Alkaline Phosphatase Total Protein Albumin Impressions: Chest X-Ray 07/21/19 00:00 IMPRESSION: 1. ET tube tip is in the lower thoracic trachea, consider retraction as above. 2. Improvement in bilateral edema and/or pneumonia. Assessment & Plan - Diagnosis (1) ARDS (adult respiratory distress syndrome) Is this a current diagnosis for this admission?: Yes Plan: PO2 improved to 255 on 65%. Continue slow wean. Would like to see 50% or less to avoid O2 toxicity. Keep PEEP at 10 for now. Continue low volume ventilation. (2) Diabetes mellitus type 2 in obese Is this a current diagnosis for this admission?: Yes Plan: Controlled even on low dose steroids (3) Down syndrome Is this a current diagnosis for this admission?: Yes Plan: Family to help communicate when ready for extubation. - Time Time Spent with patient: 35 or more minutes Total Critical Time (Minutes): 40 Medications reviewed and adjusted accordingly: Yes Anticipated discharge: Home Within: Other - Too early to predict right now - Inpatient Certification Based on my medical assessment, after consideration of the patient's comorbidities, presenting symptoms, or acuity I expect that the services needed warrant INPATIENT care.: Yes I certify that my determination is in accordance with my understanding of Medicare's requirements for reasonable and necessary INPATIENT services [42 CFR 412.3e].: Yes Medical Necessity: Failure to Improve With Outpatient Therapy, Significant Comorbidiites Make Outpatient Treatment Too Risky, Need Close Monitoring Due to Risk of Patient Decompensation, Need for Nebulizer Therapy and Monitoring of Response, Risk of Complication if Not Cared For in Hospital
[2019-07-21] MEDS: LEVALBUTEROL HCL NEB 0.63 MG/3 ML AMPUL NEB PRN ×2 (08:44→20:32)
[2019-07-21] MEDS: ACETYLCYSTEINE 20% SOLN 800 MG/4 ML VIAL.NEB NEB SCH ×2 (08:44→20:32)
[2019-07-21] MEDS: METFORMIN HCL 500 MG TABLET NG SCH ×2 (09:36→17:28)
[2019-07-21] MEDS: SITAGLIPTIN PHOSPHATE 50 MG TABLET NG SCH ×2 (09:36→17:28)
[2019-07-21] MEDS: LORATADINE 10 MG TABLET NG SCH (09:37)
[2019-07-21] MEDS: MULTIVITAMIN ORAL LIQUID 60 ML NG SCH (09:37)
[2019-07-21] MEDS: FAMOTIDINE 20 MG TABLET NG SCH ×2 (09:37→22:01)
[2019-07-21] MEDS: TOPIRAMATE 25 MG TABLET NG SCH (09:39)
[2019-07-21] MEDS ORDERED: DOPAMINE HCL 800 MG/D5W 250 ML IV PRN (10:14)
[2019-07-21] MEDS: DOCUSATE SODIUM 100 MG/10 ML UDC NG SCH (11:11)
[2019-07-21] MEDS: MIDAZOLAM HCL 50 MG/100 ML RTUINJ IV PRN ×2 (13:20→22:03)
--- NOTE | 2019-07-21 16:15 | RADIOLOGY REPORT (SQ) ---
EXAM DESCRIPTION: KUB/ABDOMEN (SINGLE VIEW) COMPLETED DATE/TIME: 07/21/2019 4:01 pm REASON FOR STUDY: NOT TOLERATING TF, NO BM, ILLEUS? K02.9 DENTAL CARIES, UNSPECIFIED COMPARISON: None. NUMBER OF VIEWS: One view. TECHNIQUE: Supine radiographic image of the abdomen acquired. LIMITATIONS: None. FINDINGS: BOWEL GAS PATTERN: No abnormally dilated loops of bowel. Stool within the transverse and descending colon. CALCIFICATIONS: No suspicious calcifications. SOFT TISSUES: No gross mass or suggestion of organomegaly. HARDWARE: Subdiaphragmatic course and enteric tube with the tip projecting over the left upper abdome n of the expected region of the stomach. BONES: No acute fracture. No worrisome bone lesions. OTHER: No other significant finding. IMPRESSION: Lines and tubes as above. Nonobstructive bowel gas pattern. Stool within the transverse and descending colon. TECHNICAL DOCUMENTATION: JOB ID: [id number] [employer]- All Rights Reserved Reading location - IP/workstation name: [email or web address]
[2019-07-21] MEDS: TRAZODONE HCL 50 MG TABLET NG SCH (22:00)
[2019-07-21] MEDS: ATORVASTATIN CALCIUM 20 MG TABLET NG SCH (22:01)
[2019-07-21] MEDS: LEVOFLOXACIN 750 MG/D5W RTU 750 MG/150 ML RTUPB IV SCH (22:01)
[2019-07-21] MEDS: ESCITALOPRAM OXALATE 10 MG TABLET NG SCH (22:01)
[2019-07-21] MEDS: RINGERS SOLUTION,LACTATED 1,000 ML IV PRN (22:04)
[2019-07-22] MEDS: INSULIN REG, HUMAN 100 UNIT/ML 3 ML VIAL (PYX) SUBCUT SCH ×4 (00:10→17:55)
[2019-07-22] MEDS: METOCLOPRAMIDE HCL INJ/PF 10 MG/2 ML SDV IV SCH ×2 (00:10→06:28)
[2019-07-22] MEDS: HYDROCORTISONE SOD SUCCINATE INJ/PF 100 MG/2 ML SDV IV SCH ×3 (02:45→17:54)
[2019-07-22 05:37] LABS: ARTERIAL BLOOD BASE EXCESS 2.6 mmol/L; ARTERIAL BLOOD FIO2 40%; ARTERIAL BLOOD H2CO3 0.87 mmol/L (1.05-1.35); ARTERIAL BLOOD HCO3 24.7 mmol/L (20-24); ARTERIAL BLOOD O2 SATURATION 99.6 % (94-98); ARTERIAL BLOOD PCO2 28.8 mmHg (35-45); ARTERIAL BLOOD PH 7.55 (7.35-7.45); ARTERIAL BLOOD PO2 234.9 mmHg (80-100); ARTERIAL BLOOD TOTAL CO2 25.6 mmol/L (21-25)
[2019-07-22 05:43] LABS: ABSOLUTE LYMPHOCYTES (AUTO) 0.9 10^3/uL (0.5-4.7); ABSOLUTE MONOCYTES (AUTO) 0.4 10^3/uL (0.1-1.4); ABSOLUTE NEUT (AUTO) 7.6 10^3/uL (1.7-8.2); BASOPHILS % (AUTO) 0.1 % (0-2); EOSINOPHILS % (AUTO) 0.1 % (0-6); HEMATOCRIT 27.7 % (36.0-47.0); HEMOGLOBIN 9.3 g/dL (12.0-15.5); LYMPHOCYTES % (AUTO) 10.3 % (13-45); MEAN CORPUSCULAR HEMOGLOBIN 27.1 pg (27.0-33.4); MEAN CORPUSCULAR HGB CONC 33.6 g/dL (32.0-36.0); MEAN CORPUSCULAR VOLUME 81 fl (80-97); MONOCYTES % (AUTO) 4.2 % (3-13); PLATELET COUNT 184 10^3/uL (150-450); RED BLOOD COUNT 3.44 10^6/uL (3.72-5.28); RED CELL DISTRIBUTION WIDTH 16.8 % (11.5-14.0); SEGMENTED NEUTROPHILS % (AUTO) 85.3 % (42-78); TOTAL CELLS COUNTED % (AUTO) 100 %
[2019-07-22 06:08] LABS: ANION GAP 9 (5-19); BLOOD UREA NITROGEN 15 mg/dL (7-20); CALCIUM 7.3 mg/dL (8.4-10.2); CARBON DIOXIDE 29 mmol/L (22-30); CHLORIDE 102 mmol/L (98-107); GLUCOSE 116 mg/dL (75-110); POTASSIUM 3.6 mmol/L (3.6-5.0)
[2019-07-22] MEDS: HEPARIN SOD (PORCINE) 5,000 UNIT/ML 1 ML VIAL SUBCUT SCH ×3 (06:28→22:49)
--- NOTE | 2019-07-22 07:27 | RADIOLOGY REPORT (SQ) ---
EXAM DESCRIPTION: X-ray single view chest. CLINICAL HISTORY: 29 years Female, vent COMPARISON: 07/21/2019 and 07/20/2019 TECHNIQUE: Single portable x-ray view of the chest performed on 07/22/2019 at 6:05 AM FINDINGS: The lungs are relatively well expanded. There is persistent moderate bilateral airspace disease similar when compared to the study performed on 07/21/2019 likely related to pulmonary edema. There is no evidence of a pneumothorax. The cardiac silhouette is stable and is prominent. The mediastinal contours are normal. No acute osseous abnormality is identified. No focal soft tissue abnormalities are seen. Lines and tubes: The endotracheal tube terminates just below the clavicular heads. The feeding tube extends below the diaphragm and projects over the left upper quadrant. IMPRESSION: 1. Overall, no significant interval change when compared to the most recent study performed on 07/21/2019. Grossly stable bilateral pulmonary edema suspected. 3. Endotracheal tube and feeding tube present as described above.
[2019-07-22] MEDS: LEVALBUTEROL HCL NEB 0.63 MG/3 ML AMPUL NEB PRN (08:29)
[2019-07-22] MEDS: ACETYLCYSTEINE 20% SOLN 800 MG/4 ML VIAL.NEB NEB SCH (08:29)
[2019-07-22] MEDS ORDERED: PIPERACILLIN/TAZOBACTAM 3.375 GM VIAL IV ONE (08:47)
[2019-07-22] MEDS: METFORMIN HCL 500 MG TABLET NG SCH (08:59)
[2019-07-22] MEDS: SITAGLIPTIN PHOSPHATE 50 MG TABLET NG SCH ×2 (09:00→15:15)
[2019-07-22] MEDS: FAMOTIDINE 20 MG TABLET NG SCH ×2 (09:22→22:49)
[2019-07-22] MEDS: LORATADINE 10 MG TABLET NG SCH (09:22)
[2019-07-22] MEDS: MULTIVITAMIN ORAL LIQUID 60 ML NG SCH (09:25)
[2019-07-22] MEDS: TOPIRAMATE 25 MG TABLET NG SCH (09:26)
[2019-07-22] MEDS: PIPERACILLIN SODIUM/TAZOBACTAM 3.375 GM in NORMAL SALINE 100 ML IV SCH ×3 (09:46→22:48)
[2019-07-22] MEDS ORDERED: FUROSEMIDE INJ/PF 20 MG/2 ML SDV IV ONE (10:09)
[2019-07-22] MEDS: DEXMEDETOMIDINE IN 0.9 % NACL 400 MCG/100 ML RTUPB IV PRN ×2 (10:41→20:40)
[2019-07-22 14:01] LABS: ARTERIAL BLOOD BASE EXCESS 0.8 mmol/L; ARTERIAL BLOOD H2CO3 1.07 mmol/L (1.05-1.35); ARTERIAL BLOOD HCO3 24.5 mmol/L (20-24); ARTERIAL BLOOD O2 SATURATION 97.4 % (94-98); ARTERIAL BLOOD PCO2 35.4 mmHg (35-45); ARTERIAL BLOOD PH 7.46 (7.35-7.45); ARTERIAL BLOOD PO2 91.6 mmHg (80-100); ARTERIAL BLOOD TOTAL CO2 25.6 mmol/L (21-25)
[2019-07-22 14:08] LABS: ARTERIAL BLOOD FIO2 35%
--- NOTE | 2019-07-22 16:40 | XCELERA REPORT ---
[address] [address] Transthoracic Echocardiogram Report Name: VIOLETTA SINGH Age: 29 yrs Gender: Female : 1990 Patient Status: Inpatient Patient Location: ICU^611^A Study Date: 07/22/2019 02:37 PM Height: 51 in Weight: 123 lb BSA: 1.3 m2 Procedure: A two-dimensional transthoracic echocardiogram with color flow and Doppler was performed. The study was technically limited with all images being suboptimal in quality. Reason For Study: Cardiomegaly History: Cardiomegaly. Ordering Physician: PAUL RAMIREZ Performed By: Nikki Francisco Interpretation Summary The left ventricle is normal in size. There is normal left ventricular wall thickness. The left ventricular ejection fraction is within normal limits. LV EF is 55% to 60% Doppler measurements suggest normal left ventricular diastolic function The left ventricular wall motion is normal. There is no thrombus. No ASD ,VSD , or PFO seen. The right ventricle is grossly normal size. The right ventricle is not well visualized secondary to technical limitations The right atrium is normal. The left atrial size is normal. There is no evidence of mitral valve prolapse. There is no vegetation seen on the mitral valve. There is no mitral valve stenosis. There is a moderate to severe amount of mitral regurgitation There is no aortic valve stenosis There is a moderate amount of aortic regurgitation There is no tricuspid stenosis. There is a moderate to severe amount of tricuspid regurgitation There is mild pulmonary hypertension by echo RVSP is 35 to 40 mm of HG with RA mean of 5 to 10.SUSPECT UNDERSAMPLING OF TR JET AND HENCE INDERESTIMATIOM OF RVSP. There is no pulmonic valvular stenosis. There is a mild amount of pulmonic regurgitation The inferior vena cava appeared normal and decreased > 50% with respiration (RAP 5-10 mmHg) There is no pericardial effusion. MMode/2D Measurements & Calculations RVDd: 2.8 cm LVIDd: 4.2 cm FS: 29.8 % Ao root diam: 2.2 cm IVSd: 0.87 cm LVIDs: 3.0 cm EDV(Teich): 79.4 ml Ao root area: 3.8 cm2 LVPWd: 0.85 cm ESV(Teich): 33.9 ml LA dimension: 2.5 cm EF(Teich): 57.2 % Doppler Measurements & Calculations MV E max megan: MV P1/2t max megan: Ao V2 max: AI max megan: 84.4 cm/sec 82.9 cm/sec 135.5 cm/sec 456.1 cm/sec MV A max megan: MV P1/2t: 37.8 msec Ao max PG: AI max P.4 cm/sec MVA(P1/2t): 5.8 cm2 7.3 mmHg 83.2 mmHg MV E/A: 1.0 MV dec slope: AI dec slope: 273.5 cm/sec2 642.5 cm/sec2 AI P1/2t: MV dec time: 488.5 msec 0.14 sec LV V1 max PG: PA V2 max: PI end-d megan: TR max megan: 4.4 mmHg 88.8 cm/sec 102.5 cm/sec 275.5 cm/sec LV V1 max: PA max P.2 mmHg TR max P.6 cm/sec 30.4 mmHg AV P1/2t-pr_phl: MV P1/2t-pr_phl: 488.5 msec 37.8 msec Left Ventricle The left ventricle is normal in size. There is normal left ventricular wall thickness. The left ventricular ejection fraction is within normal limits. LV EF is 55% to 60%. Doppler measurements suggest normal left ventricular diastolic function. The left ventricular wall motion is normal. There is no thrombus. No ASD ,VSD , or PFO seen. Right Ventricle The right ventricle is grossly normal size. The right ventricle is not well visualized secondary to technical limitations. Atria The right atrium is normal. The left atrial size is normal. Mitral Valve There is no evidence of mitral valve prolapse. There is no vegetation seen on the mitral valve. There is no mitral valve stenosis. There is a moderate to severe amount of mitral regurgitation. Aortic Valve There is no aortic valve stenosis. There is a moderate amount of aortic regurgitation. Tricuspid Valve There is no tricuspid stenosis. There is a moderate to severe amount of tricuspid regurgitation. There is mild pulmonary hypertension by echo. RVSP is 35 to 40 mm of HG with RA mean of 5 to 10.SUSPECT UNDERSAMPLING OF TR JET AND HENCE INDERESTIMATIOM OF RVSP. Pulmonic Valve There is no pulmonic valvular stenosis. There is a mild amount of pulmonic regurgitation. Great Vessels The aortic root is normal size. The inferior vena cava appeared normal and decreased > 50% with respiration (RAP 5-10 mmHg). Effusions There is no pericardial effusion. : PAUL RAMIREZ, Yulia
--- NOTE | 2019-07-22 21:34 | PDOC PROGRESS REPORT ---
Subjective Progress Note for:: 07/22/19 Subjective:: Patient was begun on ventilator wean this morning. She had her PEEP reduced to 8 however could not tolerate any lowering secondary to hypoxia. Her chest x-ray has improved. 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 We are awaiting her sister given her close association with the patient and the patient's current intubated state precludes the use of the video veneer glue spreader. She has been hemodynamically stable. Reason For Visit: ARDS Physical Exam Vital Signs: Temp Pulse Resp BP Pulse Ox 97.9 F 81 36 H 121/82 96 07/22/19 08:00 07/22/19 10:00 07/22/19 10:00 07/22/19 10:00 07/22/19 10:00 Pulse Oximeter Continuous Start: 07/18/19 19:55 Freq: RTQ4 Status: Hold Protocol: Document 07/19/19 19:35 [facility] (Rec: 07/19/19 20:15 [facility] [id number]) Pulse Oximetry Assessment Oxygen Saturation (92-100) 92 Oxygen Flow Rate (L/min) 6 Oxygen Delivery Method Nasal Cannula Fraction of Inspired Oxygen (FIO2) 44 Equipment Usage Equipment in Use Continuous SpO2 Machine # [id number] Intake & Output 07/21/19 07/22/19 07/23/19 06:59 06:59 06:59 Intake Total 1556 2849 106 Output Total 2046 1605 475 Balance -490 1244 -369 Weight 58.9 kg 55.8 kg Physical Exam: Debated nontoxic older appearing 29-year-old Italian female no acute distress stigmata and feces of Trisonomy General appearance: PRESENT: no acute distress, morbidly obese. ABSENT: mild distress, severe distress Head exam: PRESENT: atraumatic Eye exam: PRESENT: conjunctiva pink, PERRLA. ABSENT: conjunctival injection, nystagmus, scleral icterus Ear exam: PRESENT: other Additional comments: Low-set ears Mouth exam: PRESENT: neck supple Additional comments: Has characteristic micrognathia Teeth exam: PRESENT: poor dentation Neck exam: ABSENT: carotid bruit, JVD, lymphadenopathy, meningismus, tenderness, thyromegaly, tracheal deviation Respiratory exam: PRESENT: crackles - On right, unlabored. ABSENT: accessory muscle use, retraction, tachypnea, wheezes Cardiovascular exam: PRESENT: RRR, +S1, +S2, systolic murmur Murmur grade: 2 Pulses: PRESENT: +1 pedal pulses bilateral Vascular exam: PRESENT: normal capillary refill GI/Abdominal exam: PRESENT: normal bowel sounds, soft, tenderness. ABSENT: ascites, diminished bowel sounds, distended, firm, guarding, mass, Dowd's sign, rebound, rigid Rectal exam: PRESENT: deferred Gentrourinary exam: PRESENT: indwelling catheter Extremities exam: PRESENT: pedal edema Musculoskeletal exam: PRESENT: normal inspection Neurological exam: PRESENT: altered Additional comments: GCS is 2-1T-4 Skin exam: PRESENT: intact, normal color, warm. ABSENT: abrasion, cyanosis, er ythema, jaundice, mottled, pallor, petechiae, rash, skin tears, urticaria, vesicles Results Laboratory Results: 07/22/19 05:20 07/22/19 05:20 07/22/19 07/22/19 07/22/19 05:00 05:20 05:20 WBC 9.0 RBC 3.44 L Hgb 9.3 L Hct 27.7 L MCV 81 MCH 27.1 MCHC 33.6 RDW 16.8 H Plt Count 184 Seg Neutrophils % 85.3 H Carbonic Acid 0.87 L HCO3/H2CO3 Ratio 28:1 ABG pH 7.55 H ABG pCO2 28.8 L ABG pO2 234.9 H ABG HCO3 24.7 H ABG O2 Saturation 99.6 H ABG Base Excess 2.6 FiO2 40% Sodium 140.3 Potassium 3.6 Chloride 102 Carbon Dioxide 29 Anion Gap 9 BUN 15 Creatinine 0.74 Est GFR ( Amer) > 60 Glucose 116 H Calcium 7.3 L Impressions: KUB X-Ray 07/21/19 00:00 IMPRESSION: Lines and tubes as above. Nonobstructive bowel gas pattern. Stool within the transverse and descending colon. Chest X-Ray 07/22/19 06:00 IMPRESSION: 1. Overall, no significant interval change when compared to the most recent study performed on 07/21/2019. Grossly stable bilateral pulmonary edema suspected. 3. Endotracheal tube and feeding tube present as described above. Status: Image reviewed by me - Improving CXR Assessment & Plan - Diagnosis (1) ARDS (adult respiratory distress syndrome) Is this a current diagnosis for this admission?: Yes Plan: See below (2) Aspiration pneumonia due to vomitus Qualifiers: Laterality: bilateral Lung location: unspecified part of lung Qualified Code(s): J69.0 - Pneumonitis due to inhalation of food and vomit Is this a current diagnosis for this admission?: Yes Plan: See below (3) Acute postoperative respiratory failure Is this a current diagnosis for this admission?: Yes Plan: See below (4) Acute respiratory failure with hypoxia Is this a current diagnosis for this admission?: Yes (5) Diabetes mellitus type 2 in obese Is this a current diagnosis for this admission?: Yes Plan: See below (6) Down syndrome Is this a current diagnosis for this admission?: Yes Plan: See below - Time Time Spent with patient: 35 or more minutes Total Critical Time (Minutes): 50 Medications reviewed and adjusted accordingly: Yes - Inpatient Certification Based on my medical assessment, after consideration of the patient's comorbidities, presenting symptoms, or acuity I expect that the services needed warrant INPATIENT care.: Yes I certify that my determination is in accordance with my understanding of Medicare's requirements for reasonable and necessary INPATIENT services [42 CFR 412.3e].: Yes Medical Necessity: Significant Comorbidiites Make Outpatient Treatment Too Risky, Need For IV Fluids, Need for Neurological Checks, Need for IV Antibiotics, Risk of Complication if Not Cared For in Hospital Post Hospital Care: D/C Continuous Towel Roller Documentation - Plan Summary Plan Summary: Patient has improved including her chest x-ray. She is still not neurologically intact to allow for safe liberation from mechanical ventilation. Furthermore she is still relatively hypoxic on higher levels of PEEP. We will add diuretic today to achieve negative fluid balance. I also ordered an echocardiogram to evaluate the patient's valvular function and to rule out CHF and cardiomyopathy as a cause for failure. Patients with trisonomy often develop Eisenmenger's complex. We will continue to provide supportive care. Apparently she did not tolerate her tube feeds well but will continue to follow this phenomena. To do to monitor patient's glucose and response to treatment. I discontinued her antibiotics. We will await the sister's arrival to discuss the next plan of care. Although not typically advised given this patient's unique circumstances the use of her family to communicate with the patient is of paramount importance given her underlying mental dysfunction. Patient seen in multidisciplinary rounds. Care of in ICU patient is ongoing and dynamic. This note represents a static representation of ongoing care in the last 24 hours. Orders given, completed and entered via computer are not always reflective of actual time done. Medical power of alteration specialist is: Mother Patient requires ICU care secondary to acute respiratory distress with hypoxia maintained on mechanical ventilation, aspiration pneumonia with ARDS
[2019-07-22] MEDS: TRAZODONE HCL 50 MG TABLET NG SCH (22:49)
[2019-07-22] MEDS: ATORVASTATIN CALCIUM 20 MG TABLET NG SCH (22:49)
[2019-07-22] MEDS: ESCITALOPRAM OXALATE 10 MG TABLET NG SCH (22:49)
[2019-07-22] MEDS ORDERED: MINERAL OIL/PETROLATUM,WHITE OPH OINT 3.5 GM OU ONE (23:59)
[2019-07-23] MEDS: INSULIN REG, HUMAN 100 UNIT/ML 3 ML VIAL (PYX) SUBCUT SCH ×4 (01:08→18:07)
[2019-07-23] MEDS: HYDROCORTISONE SOD SUCCINATE INJ/PF 100 MG/2 ML SDV IV SCH ×3 (01:09→22:25)
[2019-07-23] MEDS: PIPERACILLIN SODIUM/TAZOBACTAM 3.375 GM in NORMAL SALINE 100 ML IV SCH ×4 (02:47→21:07)
[2019-07-23] MEDS: HEPARIN SOD (PORCINE) 5,000 UNIT/ML 1 ML VIAL SUBCUT SCH ×3 (05:28→22:26)
[2019-07-23] MEDS: DEXMEDETOMIDINE IN 0.9 % NACL 400 MCG/100 ML RTUPB IV PRN ×2 (05:28→18:16)
[2019-07-23] MEDS: SITAGLIPTIN PHOSPHATE 50 MG TABLET NG SCH ×2 (08:14→15:16)
--- NOTE | 2019-07-23 08:55 | RADIOLOGY REPORT (SQ) ---
EXAM DESCRIPTION: CHEST SINGLE VIEW COMPLETED DATE/TIME: 07/23/2019 6:08 am REASON FOR STUDY: vent COMPARISON: None. EXAM PARAMETERS: NUMBER OF VIEWS: One view. TECHNIQUE: Single frontal radiographic view of the chest acquired. RADIATION DOSE: NA LIMITATIONS: None. FINDINGS: LUNGS AND PLEURA: Compared to the radiograph from 07/22/2019 the bilateral and asymmetric airspace opacities are decreased. There is no sizable pleural effusion or pneumothorax. MEDIASTINUM AND HILAR STRUCTURES: Stable mediastinal and hilar contours. HEART AND VASCULAR STRUCTURES: The cardiac silhouette is enlarged but stable. The pulmonary vascula ture is within normal limits given the low inspiratory lung volumes. BONES: No acute findings. HARDWARE: The tip of the endotracheal tube projects above the martha. The tip and side hole of the e nteric tube projects past the gastroesophageal junction and within the gastric lumen. OTHER: No other finding. IMPRESSION: Decreased asymmetric airspace opacities as detailed above. TECHNICAL DOCUMENTATION: JOB ID: [id number] [employer]- All Rights Reserved Reading location - IP/workstation name: [email or web address]
[2019-07-23] MEDS: FAMOTIDINE 20 MG TABLET NG SCH ×2 (10:38→22:24)
[2019-07-23] MEDS: TOPIRAMATE 25 MG TABLET NG SCH (10:38)
[2019-07-23] MEDS: LORATADINE 10 MG TABLET NG SCH (10:38)
[2019-07-23] MEDS: MULTIVITAMIN ORAL LIQUID 60 ML NG SCH (10:39)
[2019-07-23] MEDS ORDERED: SENNOSIDES/DOCUSATE 8.6-50 MG 1 EACH TABLET PO PRN (14:31)
[2019-07-23] MEDS ORDERED: POLYETHYLENE GLYCOL 3350 POWDER 17 GM/1 PACKET PO PRN (14:31)
--- NOTE | 2019-07-23 14:31 | PDOC PROGRESS REPORT ---
Subjective Progress Note for:: 07/23/19 Subjective:: 07.23.19: Patient has been diuresing in the last 12 to 18 hours. She has not had a significant or dramatic urine output but she also has not had no hemodynamic instability and was able to be transitioned to SBT. She was able to tolerate this but had some apnea episodes of apnea and the Precedex has been discontinued. With reevaluation after the Precedex was transitioned off she was able to tolerate SBT. She did appear to be anxious and she was transitioned back to assist control however this may be related to reduction in her Precedex. Repeat SBT is sched uled to be done this afternoon. Patient had an echocardiogram which showed normal EF with moderate to severe mitral regurgitation, moderate aortic regurgitation, moderate tricuspid regurgitation. Inability to evaluate full pulmonary pressures was unable to be accommodated however she is noted to have high right ventricular pressures. Her sister has been helpful in calming the patient and speaking with her and her afognak tongue. 07.22.19: Patient was begun on ventilator wean this morning. She had her PEEP reduced to 8 however could not tolerate any lowering secondary to hypoxia. Her chest x-ray has improved. 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 We are awaiting her sister given her close association with the patient and the patient's current intubated state precludes the use of the video telegraph plant maintainer. She has been hemodynamically stable. Reason For Visit: ARDS Physical Exam Vital Signs: Temp Pulse Resp BP Pulse Ox 99.7 F 75 13 127/88 H 100 07/23/19 06:00 07/22/19 22:06 07/23/19 07:53 07/23/19 07:53 07/23/19 08:12 Pulse Oximeter Continuous Start: 07/18/19 19:55 Freq: RTQ4 Status: Hold Protocol: Document 07/19/19 19:35 [facility] (Rec: 07/19/19 20:15 [facility] [id number]) Pulse Oximetry Assessment Oxygen Saturation (92-100) 92 Oxygen Flow Rate (L/min) 6 Oxygen Delivery Method Nasal Cannula Fraction of Inspired Oxygen (FIO2) 44 Equipment Usage Equipment in Use Continuous SpO2 Machine # [id number] Intake & Output 07/22/19 07/23/19 07/24/19 06:59 06:59 06:59 Intake Total 2849 467 Output Total 1605 1000 Balance 1244 -533 Weight 55.8 kg 54.5 kg Physical Exam: Intubated nontoxic ill appearing 29-year-old [place] female no active distress, awake General appearance: PRESENT: no acute distress, morbidly obese Head exam: PRESENT: other Additional Comments: 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 Eye exam: PRESENT: conjunctiva pink, PERRLA. ABSENT: conjunctival injection, EOMI Ear exam: ABSENT: normal external ear exam Mouth exam: PRESENT: dry mucosa, neck supple Teeth exam: PRESENT: poor dentation Neck exam: ABSENT: JVD, lymphadenopathy, meningismus, thyromegaly, tracheal deviation Respiratory exam: PRESENT: clear to auscultation katlyn, unlabored. ABSENT: accessory muscle use, tachypnea Cardiovascular exam: PRESENT: RRR, +S1, +S2, systolic murmur Murmur grade: 2 Pulses: PRESENT: +1 pedal pulses bilateral Vascular exam: PRESENT: normal capillary refill GI/Abdominal exam: PRESENT: hypoactive bowel sounds, soft. 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 ABSENT: dislocation Neurological exam: PRESENT: awake Additional comments: [place] Coma Scale utilizing the patient's sister as a telegraph plant maintainer: E: 4-V1i-M: 6; no focal motor deficits. Psychiatric exam: ABSENT: agitated Focused psych exam: ABSENT: psychomotor agitation Skin exam: PRESENT: intact, warm. ABSENT: cyanosis, erythema, jaundice, mottled, pallor, petechiae, urticaria, vesicles Results Laboratory Results: 07/22/19 05:20 07/22/19 05:20 07/22/19 13:45 Carbonic Acid 1.07 HCO3/H2CO3 Ratio 22:1 ABG pH 7.46 H ABG pCO2 35.4 ABG pO2 91.6 ABG HCO3 24.5 H ABG O2 Saturation 97.4 ABG Base Excess 0.8 FiO2 35% Impressions: KUB X-Ray 07/21/19 00:00 IMPRESSION: Lines and tubes as above. Nonobstructive bowel gas pattern. Stool within the transverse and descending colon. Status: Image reviewed by me Assessment & Plan - Diagnosis (1) ARDS (adult respiratory distress syndrome) Is this a current diagnosis for this admission?: Yes Plan: See below (2) Aspiration pneumonia due to vomitus Qualifiers: Laterality: bilateral Lung location: unspecified part of lung Qualified Code(s): J69.0 - Pneumonitis due to inhalation of food and vomit Is this a current diagnosis for this admission?: Yes Plan: See below (3) Acute postoperative respiratory failure Is this a current diagnosis for this admission?: Yes Plan: See below (4) Acute respiratory failure with hypoxia Is this a current diagnosis for this admission?: Yes (5) Diabetes mellitus type 2 in obese Is this a current diagnosis for this admission?: Yes Plan: See below (6) Down syndrome Is this a current diagnosis for this admission?: Yes (7) Severe mitral valve regurgitation Is this a current diagnosis for this admission?: Yes Plan: Please see plan below (8) Moderate aortic regurgitation Is this a current diagnosis for this admission?: Yes Plan: Please see plan below (9) Moderate tricuspid regurgitation Is this a current diagnosis for this admission?: Yes Plan: Please see plan below (10) 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 Is this a current diagnosis for this admission?: Yes Plan: Please see plan below - Time Time Spent with patient: 35 or more minutes Total Critical Time (Minutes): 60 - multiple exam during ventilator wean Medications reviewed and adjusted accordingly: Yes - Inpatient Certification Medical Necessity: Significant Comorbidiites Make Outpatient Treatment Too Risky, Need For Continuous Telemetry Monitoring, Need for Neurological Checks, Risk of Complication if Not Cared For in Hospital Post Hospital Care: D/C Chest Painting And Sealing Supervisor Documentation - Plan Summary Plan Summary: 07.23.19: Overall the patient's respiratory condition continues to improve. Will continue diuresis and supportive care. Has significant valvular disease of her heart. Of most significant is the mitral valve. The true significance would need to be measured by VICTORINO however after discussion with family they would not want surgery or any aggressive care. Declined further rest of work-up but agreed to medical management. I have asked the family to consider DNR status and they will have a group family discussion determine the suitability of the status. The sister endorses that the patient has been having heart and lung issues prior to this admission. Continue supportive care and medicinal therapy to help improve her volume status. We will restart tube feedings after NG tube was placed. NG tube is being placed in preparation for possible liberation from ventilator. To be of abdomen is evaluated NG tube in appropriate position. There is stool and will start bowel hygiene program. 07.22.19: Patient has improved including her chest x-ray. She is still not neurologically intact to allow for safe liberation from mechanical ventilation. Furthermore she is still relatively hypoxic on higher levels of PEEP. We will add diuretic today to achieve negative fluid balance. I also ordered an echocardiogram to evaluate the patient's valvular function and to rule out CHF and cardiomyopathy as a cause for failure. Patients with trisonomy often develop Eisenmenger's complex. We will continue to provide supportive care. Apparently she did not tolerate her tube feeds well but will continue to follow this phenomena. To do to monitor patient's glucose and response to treatment. I discontinued her antibiotics. We will await the sister's arrival to discuss the next plan of care. Although not typically advised given this patient's unique circumstances the use of her family to communicate with the patient is of paramount importance given her underlying mental dysfunction. Patient seen in multidisciplinary rounds. Care of in ICU patient is ongoing and dynamic. This note represents a static representation of ongoing care in the last 24 hours. Orders given, completed and entered via computer are not always reflective of actual time done. Medical power of insurance attorney is: Sister Patient requires ICU care secondary to acute respiratory distress with hypoxia maintained on mechanical ventilation, aspiration pneumonia with ARDS
--- NOTE | 2019-07-23 15:12 | RADIOLOGY REPORT (SQ) ---
EXAM DESCRIPTION: KUB/ABDOMEN (SINGLE VIEW) COMPLETED DATE/TIME: 07/23/2019 2:33 pm REASON FOR STUDY: tube placement K02.9 DENTAL CARIES, UNSPECIFIED COMPARISON: 07/21/2019. NUMBER OF VIEWS: One view. TECHNIQUE: Supine radiographic image of the abdomen acquired. LIMITATIONS: None. FINDINGS: The tip and side hole of the enteric tube project past the gastroesophageal junction ; the tip projects within the gastric antrum. There is no basilar consolidation, sizeable pleural effusion or pneumothorax. The cardiac silhouette is within normal limits. There are no dilated loops of bowel in the upper abdomen. IMPRESSION: The tip of the enteric tube projects past the gastroesophageal junction and within the g astric antrum. TECHNICAL DOCUMENTATION: JOB ID: [id number] [employer]- All Rights Reserved Reading location - IP/workstation name: [email or web address]
[2019-07-23] MEDS ORDERED: LACTULOSE SYRUP 20 GM/30 ML UDCUP PO SCH (18:00)
[2019-07-23 20:35] LABS: ANION GAP 8 (5-19); BLOOD UREA NITROGEN 22 mg/dL (7-20); CALCIUM 7.8 mg/dL (8.4-10.2); CARBON DIOXIDE 29 mmol/L (22-30); CHLORIDE 108 mmol/L (98-107); GLUCOSE 152 mg/dL (75-110)
[2019-07-23 21:09] LABS: POTASSIUM 2.8 mmol/L (3.6-5.0)
[2019-07-23] MEDS: ATORVASTATIN CALCIUM 20 MG TABLET NG SCH (22:24)
[2019-07-23] MEDS: ESCITALOPRAM OXALATE 10 MG TABLET NG SCH (22:24)
[2019-07-23] MEDS: POTASSIUM CHLORIDE 20 MEQ PACKET PO SCH (22:25)
[2019-07-23] MEDS: TRAZODONE HCL 50 MG TABLET NG SCH (22:25)
[2019-07-24] MEDS: INSULIN REG, HUMAN 100 UNIT/ML 3 ML VIAL (PYX) SUBCUT SCH ×4 (00:54→18:59)
[2019-07-24] MEDS: POTASSIUM CHLORIDE 20 MEQ PACKET PO SCH ×2 (00:57→02:48)
[2019-07-24] MEDS: PIPERACILLIN SODIUM/TAZOBACTAM 3.375 GM in NORMAL SALINE 100 ML IV SCH ×4 (02:48→20:38)
[2019-07-24 03:47] LABS: C DIFFICILE GDH NEGATIVE (NEGATIVE)
[2019-07-24 04:46] LABS: ANION GAP 11 (5-19); BLOOD UREA NITROGEN 20 mg/dL (7-20); CALCIUM 7.8 mg/dL (8.4-10.2); CARBON DIOXIDE 26 mmol/L (22-30); CHLORIDE 111 mmol/L (98-107); GLUCOSE 179 mg/dL (75-110); POTASSIUM 3.6 mmol/L (3.6-5.0)
[2019-07-24] MEDS: HEPARIN SOD (PORCINE) 5,000 UNIT/ML 1 ML VIAL SUBCUT SCH ×3 (06:35→23:19)
[2019-07-24] MEDS: SITAGLIPTIN PHOSPHATE 50 MG TABLET NG SCH ×2 (07:56→19:09)
--- NOTE | 2019-07-24 08:02 | RADIOLOGY REPORT (SQ) ---
EXAM DESCRIPTION: CHEST SINGLE VIEW COMPLETED DATE/TIME: 07/24/2019 6:32 am REASON FOR STUDY: vent K02.9 DENTAL CARIES, UNSPECIFIED COMPARISON: 07/23/2019 NUMBER OF VIEWS: One view. TECHNIQUE: Single frontal radiographic image of the chest acquired. LIMITATIONS: None. FINDINGS: LUNGS AND PLEURA: Stable appearance. MEDIASTINUM AND HILAR STRUCTURES: Stable heart size and mediastinal structures. HEART AND VASCULAR STRUCTURES: Stable appearance. SUPPORT DEVICES: Unchanged in appearance. Endotracheal tube lies at the martha. BONES: No acute findings. OTHER: No other significant finding. IMPRESSION: No interval change. The endotracheal tube lies at the level the martha. TECHNICAL DOCUMENTATION: JOB ID: [id number] [employer]- All Rights Reserved Reading location - IP/workstation name: [email or web address]
[2019-07-24] MEDS: FAMOTIDINE 20 MG TABLET NG SCH ×2 (09:28→23:20)
[2019-07-24] MEDS: LORATADINE 10 MG TABLET NG SCH (09:28)
[2019-07-24] MEDS: TOPIRAMATE 25 MG TABLET NG SCH (09:28)
[2019-07-24] MEDS: HYDROCORTISONE SOD SUCCINATE INJ/PF 100 MG/2 ML SDV IV SCH ×2 (09:30→23:19)
[2019-07-24] MEDS: MULTIVITAMIN ORAL LIQUID 60 ML NG SCH (14:00)
[2019-07-24 15:20] LABS: ARTERIAL BLOOD BASE EXCESS -2.7 mmol/L; ARTERIAL BLOOD HCO3 19.4 mmol/L (20-24); ARTERIAL BLOOD O2 SATURATION 95.4 % (94-98); ARTERIAL BLOOD PCO2 26.5 mmHg (35-45); ARTERIAL BLOOD PH 7.48 (7.35-7.45); ARTERIAL BLOOD PO2 69.5 mmHg (80-100); ARTERIAL BLOOD TOTAL CO2 20.2 mmol/L (21-25)
[2019-07-24 15:21] LABS: ARTERIAL BLOOD FIO2 6
--- NOTE | 2019-07-24 15:48 | PDOC PROGRESS REPORT ---
Subjective Progress Note for:: 07/24/19 Subjective:: 07.24.19: Patient continues to improve. Her diuresis was held secondary to hypokalemia. She has had no untoward sequelae related to her low potassium. She has been supplemented and restarted on both Lasix and potassium today. Has been on an SBT however PO2 is not sufficient for safe liberation from the ventilator. Patient was started on a bowel hygiene and has had significant diarrhea culminating in the need for a bowel management program. Fortunately C. difficile is negative. She remains hemodynamically non-labile and afebrile. 07.23.19: Patient has been diuresing in the last 12 to 18 hours. She has not had a significant or dramatic urine output but she also has not had no hemodynamic instability and was able to be transitioned to SBT. She was able to tolerate this but had some apnea episodes of apnea and the Precedex has been discontinued. With reevaluation after the Precedex was transitioned off she was able to tolerate SBT. She did appear to be anxious and she was transitioned back to assist control however this may be related to reduction in her Precedex. Repeat SBT is scheduled to be done this afternoon. Patient had an echocardiogram which showed normal EF with moderate to severe mitral regurgitation, moderate aortic regurgitation, moderate tricuspid regurgitation. Inability to evaluate full pulmonary pressures was unable to be accommodated however she is noted to have high right ventricular pressures. Her sister has been helpful in calming the patient and speaking with her and her w[place] tongue. 07.22.19: Patient was begun on ventilator wean this morning. She had her PEEP reduced to 8 however could not tolerate any lowering secondary to hypoxia. Her chest x-ray has improved. She is of Citizen [place] descent with trisonomy 13 and does not understand the Lao language. We are awaiting her sister given her close association with the patient and the patient's current intubated state precludes the use of the video quill layer. She has been hemodynamically stable. Reason For Visit: ARDS Physical Exam Vital Signs: Temp Pulse Resp BP Pulse Ox 98.3 F 80 12 138/94 H 100 07/24/19 08:00 07/24/19 08:00 07/24/19 08:00 07/24/19 08:00 07/24/19 08:00 Pulse Oximeter Continuous Start: 07/18/19 19:55 Freq: RTQ4 Status: Hold Protocol: Document 07/19/19 19:35 [facility] (Rec: 07/19/19 20:15 [facility] [id number]) Pulse Oximetry Assessment Oxygen Saturation (92-100) 92 Oxygen Flow Rate (L/min) 6 Oxygen Delivery Method Nasal Cannula Fraction of Inspired Oxygen (FIO2) 44 Equipment Usage Equipment in Use Continuous SpO2 Machine # [id number] Intake & Output 07/23/19 07/24/19 07/25/19 06:59 06:59 06:59 Intake Total 567 583 60 Output Total 1360 925 75 Balance -793 -342 -15 Weight 54.5 kg 55.3 kg Physical Exam: Intubated older appearing 29-year-old Citizen [place] female with stigmata of trisomy no active distress General appearance: PRESENT: no acute distress, morbidly obese Eye exam: PRESENT: conjunctiva pink, PERRLA. ABSENT: conjunctival injection, nystagmus, scleral icterus Ear exam: ABSENT: normal external ear exam - low set ears Mouth exam: PRESENT: moist Teeth exam: PRESENT: poor dentation Neck exam: ABSENT: carotid bruit, JVD, lymphadenopathy, tenderness, thyromegaly Respiratory exam: PRESENT: clear to auscultation katlyn, unlabored. ABSENT: tachypnea Cardiovascular exam: PRESENT: RRR, +S1, +S2, systolic murmur Murmur grade: 2 Pulses: PRESENT: +1 pedal pulses bilateral GI/Abdominal exam: PRESENT: normal bowel sounds, soft. ABSENT: ascites, distended, firm, guarding, hernia, mass, Dowd's sign, organolmegaly, rebound, rigid, tenderness Rectal exam: PRESENT: deferred Gentrourinary exam: PRESENT: indwelling catheter Extremities exam: PRESENT: pedal edema, other - Club foot with surgical scar right foot. ABSENT: joint swelling Musculoskeletal exam: PRESENT: deformity - right foot with mid-foot flexion and club foot anatomy. ABSENT: dislocation Neurological exam: PRESENT: awake Psychiatric exam: ABSENT: agitated Focused psych exam: ABSENT: psychomotor agitation, restlessness Skin exam: PRESENT: intact, normal color. ABSENT: cyanosis, jaundice, mottled, pallor, petechiae, urticaria, vesicles Results Laboratory Results: 07/22/19 05:20 07/24/19 03:49 07/23/19 07/24/19 20:04 03:49 Sodium 144.5 147.7 H Potassium 2.8 L* 3.6 Chloride 108 H 111 H Carbon Dioxide 29 26 Anion Gap 8 11 BUN 22 H 20 Creatinine 0.74 0.81 Est GFR ( Amer) > 60 > 60 Glucose 152 H 179 H Calcium 7.8 L 7.8 L Magnesium 2.3 Impressions: KUB X-Ray 07/23/19 00:00 IMPRESSION: The tip of the enteric tube projects past the gastroesophageal junction and within the gastric antrum. Chest X-Ray 07/24/19 06:00 IMPRESSION: No interval change. The endotracheal tube lies at the level the martha. Status: Image reviewed by me Assessment & Plan - Diagnosis (1) ARDS (adult respiratory distress syndrome) Is this a current diagnosis for this admission?: Yes (2) Aspiration pneumonia due to vomitus Qualifiers: Laterality: bilateral Lung location: unspecified part of lung Qualified Code(s): J69.0 - Pneumonitis due to inhalation of food and vomit Is this a current diagnosis for this admission?: Yes (3) Acute postoperative respiratory failure Is this a current diagnosis for this admission?: Yes (4) Acute respiratory failure with hypoxia Is this a current diagnosis for this admission?: Yes (5) Diabetes mellitus type 2 in obese Is this a current diagnosis for this admission?: Yes (6) Down syndrome Is this a current diagnosis for this admission?: Yes (7) Severe mitral valve regurgitation Is this a current diagnosis for this admission?: Yes (8) Moderate aortic regurgitation Is this a current diagnosis for this admission?: Yes (9) Moderate tricuspid regurgitation Is this a current diagnosis for this admission?: Yes (10) 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 Is this a current diagnosis for this admission?: Yes - Time Time Spent with patient: 35 or more minutes Total Critical Time (Minutes): 60 - includes end-of-life discussion and care coordination Medications reviewed and adjusted accordingly: Yes Disposition: To remain in ICU - Inpatient Certification Based on my medical assessment, after consideration of the patient's comorbidities, presenting symptoms, or acuity I expect that the services needed warrant INPATIENT care.: Yes I certify that my determination is in accordance with my understanding of Medicare's requirements for reasonable and necessary INPATIENT services [42 CFR 412.3e].: Yes Medical Necessity: Significant Comorbidiites Make Outpatient Treatment Too Risky, Need Close Monitoring Due to Risk of Patient Decompensation, Need For Continuous Telemetry Monitoring, Need for Nebulizer Therapy and Monitoring of Response, Need for Neurological Checks, Risk of Complication if Not Cared For in Hospital Post Hospital Care: D/C Commission Sales Associate Documentation - Plan Summary Plan Summary: 07.24.19: We will continue to keep the patient on pressure support and follow her parameters while diuresing. Concern that her ABG may have a venous admixture component given how stable her oxygen saturation and respiratory status is. We will continue to monitor for appropriate liberation from ventilator. What I am concerned about is that given her limited mental capacity and limited ability to understand secondary to her Down syndrome, she may not tolerate noninvasive ventilation which would be most beneficial and would help us to liberate her from the ventilator. I had a lengthy discussion with the sister who is the family spokesperson and the medical power of [place] attorney. We discussed the patient's valvular disease and at first they were reticent to have any therapy. They have agreed that they would want this and want her to be full code. We talked about a possible VICTORINO however given her recent illness this may be artificially elevated but may improve once she is off the ventilator. If we are unable to wean her we may be forced to reconsider this idea. I did speak with cardiology (Dr. Saldivar) who also recommends that no VICTORINO be done until the patient is improved and stable. Continue to follow her electrolyte panel and response to diuresis. Plan is to liberate from the ventilator to noninvasive ventilation (high flow). X-ray is dramatically improved and she shows no signs of aspiration pneumonia at this time. All antibiotics have been discontinued. She is on a steroid wean as well. We will restart tube feeds and an NG tube has been placed secondary to her ill illness and anticipation for liberation from the ventilator. 07.23.19: Overall the patient's respiratory condition continues to improve. Will continue diuresis and supportive care. Has significant valvular disease of her heart. Of most significant is the mitral valve. The true significance would need to be measured by VICTORINO however after discussion with family they would not want surgery or any aggressive care. Declined further rest of work-up but agreed to medical management. I have asked the family to consider DNR status and they will have a group family discussion determine the suitability of the status. The sister endorses that the patient has been having heart and lung issues prior to this admission. Continue supportive care and medicinal therapy to help improve her volume status. We will restart tube feedings after NG tube was placed. NG tube is being placed in preparation for possible liberation from ventilator. To be of abdomen is evaluated NG tube in appropriate position. There is stool and will start bowel hygiene program. 07.22.19: Patient has improved including her chest x-ray. She is still not neurologically intact to allow for safe liberation from mechanical ventilation. Furthermore she is still relatively hypoxic on higher levels of PEEP. We will add diuretic today to achieve negative fluid balance. I also ordered an echocardiogram to evaluate the patient's valvular function and to rule out CHF and cardiomyopathy as a cause for failure. Patients with trisonomy often develop Eisenmenger's complex. We will continue to provide supportive care. Apparently she did not tolerate her tube feeds well but will continue to follow this phenomena. To do to monitor patient's glucose and response to treatment. I discontinued her antibiotics. We will await the sister's arrival to discuss the next plan of care. Although not typically advised given this patient's unique circumstances the use of her family to communicate with the patient is of paramount imes ICU care secondary to acute respiratory distress with hypoxia maintained on mechanical ventilation, aspiration pneumonia with ARDS
[2019-07-24] MEDS ORDERED: POTASSIUM CHLORIDE 20 MEQ PACKET PO ONE ×2 (16:00→19:30)
[2019-07-24] MEDS: FUROSEMIDE INJ/PF 20 MG/2 ML SDV IV SCH ×2 (19:09→23:22)
[2019-07-24] MEDS: TRAZODONE HCL 50 MG TABLET NG SCH (23:20)
[2019-07-24] MEDS: ATORVASTATIN CALCIUM 20 MG TABLET NG SCH (23:20)
[2019-07-24] MEDS: ESCITALOPRAM OXALATE 10 MG TABLET NG SCH (23:20)
[2019-07-25] MEDS: PIPERACILLIN SODIUM/TAZOBACTAM 3.375 GM in NORMAL SALINE 100 ML IV SCH ×4 (03:15→21:32)
[2019-07-25 04:08] LABS: ABSOLUTE LYMPHOCYTES (AUTO) 1.1 10^3/uL (0.5-4.7); ABSOLUTE MONOCYTES (AUTO) 0.4 10^3/uL (0.1-1.4); ABSOLUTE NEUT (AUTO) 7.7 10^3/uL (1.7-8.2); BASOPHILS % (AUTO) 0.1 % (0-2); EOSINOPHILS % (AUTO) 0.1 % (0-6); HEMATOCRIT 30.3 % (36.0-47.0); HEMOGLOBIN 9.9 g/dL (12.0-15.5); LYMPHOCYTES % (AUTO) 11.6 % (13-45); MEAN CORPUSCULAR HEMOGLOBIN 26.3 pg (27.0-33.4); MEAN CORPUSCULAR HGB CONC 32.5 g/dL (32.0-36.0); MEAN CORPUSCULAR VOLUME 81 fl (80-97); MONOCYTES % (AUTO) 4.5 % (3-13); PLATELET COUNT 254 10^3/uL (150-450); RED BLOOD COUNT 3.74 10^6/uL (3.72-5.28); SEGMENTED NEUTROPHILS % (AUTO) 83.7 % (42-78); TOTAL CELLS COUNTED % (AUTO) 100 %; WHITE BLOOD COUNT 9.2 10^3/uL (4.0-10.5)
[2019-07-25 04:30] LABS: ANION GAP 13 (5-19); BLOOD UREA NITROGEN 17 mg/dL (7-20); CALCIUM 7.6 mg/dL (8.4-10.2); CARBON DIOXIDE 24 mmol/L (22-30); CHLORIDE 113 mmol/L (98-107); GLUCOSE 207 mg/dL (75-110); PHOSPHORUS 3.5 mg/dL (2.5-4.5); POTASSIUM 4.1 mmol/L (3.6-5.0)
[2019-07-25] MEDS: HEPARIN SOD (PORCINE) 5,000 UNIT/ML 1 ML VIAL SUBCUT SCH ×3 (05:56→21:31)
[2019-07-25] MEDS: INSULIN REG, HUMAN 100 UNIT/ML 3 ML VIAL (PYX) SUBCUT SCH ×4 (06:13→17:41)
[2019-07-25 07:10] LABS: ARTERIAL BLOOD BASE EXCESS 0.3 mmol/L; ARTERIAL BLOOD FIO2 25%; ARTERIAL BLOOD H2CO3 1.19 mmol/L (1.05-1.35); ARTERIAL BLOOD HCO3 24.8 mmol/L (20-24); ARTERIAL BLOOD O2 SATURATION 96.9 % (94-98); ARTERIAL BLOOD PCO2 39.6 mmHg (35-45); ARTERIAL BLOOD PH 7.42 (7.35-7.45)
[2019-07-25] MEDS ORDERED: DEXAMETHASONE SOD PHOS INJ 10 MG/1 ML VIAL IV ONE (08:30)
--- NOTE | 2019-07-25 09:17 | RADIOLOGY REPORT (SQ) ---
EXAM DESCRIPTION: CHEST SINGLE VIEW COMPLETED DATE/TIME: 07/25/2019 6:15 am REASON FOR STUDY: vent COMPARISON: 07/24/2019 NUMBER OF VIEWS: One view. TECHNIQUE: Single frontal radiographic image of the chest acquired. LIMITATIONS: None. FINDINGS: LUNGS AND PLEURA: Stable appearance. MEDIASTINUM AND HEART: Stable heart size and mediastinal structures. SUPPORT DEVICES: Appropriate location without change. BONY STRUCTURES: No acute findings. HARDWARE: None. OTHER: No other significant finding. IMPRESSION: STABLE APPEARANCE OF THE CHEST. SUPPORT DEVICES UNCHANGED. Reading location - IP/workstation name: [email or web address]
[2019-07-25] MEDS: FUROSEMIDE INJ/PF 20 MG/2 ML SDV IV SCH ×2 (10:34→21:31)
[2019-07-25] MEDS: MULTIVITAMIN ORAL LIQUID 60 ML NG SCH (10:35)
[2019-07-25] MEDS: TOPIRAMATE 25 MG TABLET NG SCH (10:35)
[2019-07-25] MEDS: LORATADINE 10 MG TABLET NG SCH (10:35)
[2019-07-25] MEDS: FAMOTIDINE 20 MG TABLET NG SCH (10:35)
[2019-07-25] MEDS: SITAGLIPTIN PHOSPHATE 50 MG TABLET NG SCH (10:38)
[2019-07-25] MEDS ORDERED: FUROSEMIDE INJ/PF 20 MG/2 ML SDV IV ONE ×2 (17:00→18:00)
[2019-07-25] MEDS ORDERED: DEXMEDETOMIDINE IN 0.9 % NACL 0 MCG/0 ML RTUPB IV ONE (18:31)
[2019-07-25] MEDS ORDERED: PROPOFOL 1,000 MG/100 ML INFUS..BTL IV ONE (18:33)
[2019-07-25] MEDS ORDERED: FENTANYL CITRATE INJ/PF 100 MCG/2 ML AMPUL ONE (18:34)
[2019-07-25] MEDS ORDERED: ETOMIDATE INJ/PF 20 MG/10 ML SDV IV ONE (18:39)
--- NOTE | 2019-07-25 19:02 | Progress Note ---
Provider Note Provider Note: Patient was extubated earlier in the day and had been doing well without stridor. Her respiratory status has worsened insidiously through the afternoon. She has had mucus and has difficulty coughing. She also has difficulty understanding because of her mental deficiency associated with her trisonomy genetic dysfunction. We initially started her on high flow nasal cannula she was recalcitrant and BiPAP was tried. Her respiratory rate continue to increase bolus her blood pressure and heart rate. She appeared to be tiring. Lengthy discussion with the family and the medical power of consumer attorney and discussed the fact that the patient would most likely continue to fail. They were agreeable to reintubation. She was successfully intubated without difficulty. Please see note. Total critical care time 30 minutes.
[2019-07-25] MEDS: PROPOFOL 1,000 MG/100 ML INFUS..BTL IV PRN (19:08)
--- NOTE | 2019-07-25 19:09 | Progress Note ---
Provider Note Provider Note: Procedure Procedure: Urgent intubation Proceduralist: DO [facility] Construction Sales Representative: RN and RT ICU staff Pre-procedure diagnosis: Acute hypoxic respiratory Failure post-extubation Post-procedure diagnosis: Same EBL: None Complications: None Findings: Mild bleeding prior to intubation in pharynx from NGT Edentulous Grade 1a view Medications: RSI with Fentanyl 100 mcg/Amidate 20 mg/Rocuronium 50 mg CXR shows tip above martha She was identified from ongoing critical care chart check name jennifer. Discussion was carried out with family prior to procedure. She received a pre- intubation Analgesis/sedation dose of fentanyl. Appropriate airway adjuncts at hand including the glide scope LMA bag mask valve in preparation for a possible surgical airway the patient was given etomidate and rocuronium and rapid sequence formation. Within 60 seconds she was sufficiently under neuromuscular blockade to facilitate placement of an ET tube under grade 1 view. There was diffuse swelling at the laryngeal site and mild bleeding from what appeared to be the NG tube was placed. NG tube was removed prior to the placement of the ET tube. Immediately after was placed no gastric insufflation sounds were heard and bilateral breath sounds were heard ET tube at 21 cm at the lip. She tolerated procedure well. At no time was there any degree of hypoxia or hypotension. She was started immediately on propofol for sedation. There is no complications. This procedure excludes critical care time
[2019-07-25] MEDS: ALBUTEROL SULFATE 0.083% NEB 2.5 MG/3 ML AMPUL NEB SCH ×2 (19:16→20:14)
--- NOTE | 2019-07-25 19:24 | RADIOLOGY REPORT (SQ) ---
EXAM DESCRIPTION: CHEST SINGLE VIEW COMPLETED DATE/TIME: 07/25/2019 7:09 pm REASON FOR STUDY: tube placement COMPARISON: 07/25/2019 EXAM PARAMETERS: NUMBER OF VIEWS: One view. TECHNIQUE: Single frontal radiographic view of the chest acquired. RADIATION DOSE: NA LIMITATIONS: None. FINDINGS: LUNGS AND PLEURA: No opacities, masses or pneumothorax. No pleural effusion. MEDIASTINUM AND HILAR STRUCTURES: No masses. Contour normal. HEART AND VASCULAR STRUCTURES: Heart normal in size. Normal vasculature. BONES: No acute findings. HARDWARE: Endotracheal tube has its tip 2 cm above the martha an NG tube has its tip in the gastric f undus. OTHER: No other significant finding. IMPRESSION: Tube placement as described. No acute finding. TECHNICAL DOCUMENTATION: JOB ID: [id number] [employer]- All Rights Reserved Reading location - IP/workstation name: [email or web address]
[2019-07-25 20:14] LABS: ARTERIAL BLOOD BASE EXCESS 6.6 mmol/L; ARTERIAL BLOOD H2CO3 1.09 mmol/L (1.05-1.35); ARTERIAL BLOOD HCO3 29.6 mmol/L (20-24); ARTERIAL BLOOD O2 SATURATION 99.2 % (94-98); ARTERIAL BLOOD PCO2 36.3 mmHg (35-45); ARTERIAL BLOOD PH 7.53 (7.35-7.45); ARTERIAL BLOOD PO2 155.8 mmHg (80-100); ARTERIAL BLOOD TOTAL CO2 30.7 mmol/L (21-25)
[2019-07-25 20:17] LABS: ARTERIAL BLOOD FIO2 40%
[2019-07-25] MEDS ORDERED: ROCURONIUM BROMIDE INJ 50 MG/5 ML VIAL IV ONE (20:56)
[2019-07-25] MEDS: TRAZODONE HCL 50 MG TABLET NG SCH (21:31)
[2019-07-25] MEDS: ESCITALOPRAM OXALATE 10 MG TABLET NG SCH (21:31)
[2019-07-25] MEDS: ATORVASTATIN CALCIUM 20 MG TABLET NG SCH (21:31)
[2019-07-25] MEDS: FAMOTIDINE 20 MG TABLET PO SCH (21:31)
[2019-07-25] MEDS: MINERAL OIL/PETROLATUM,WHITE OPH OINT 3.5 GM OU SCH (22:51)
[2019-07-26] MEDS: ALBUTEROL SULFATE 0.083% NEB 2.5 MG/3 ML AMPUL NEB SCH ×7 (00:04→23:55)
[2019-07-26] MEDS ORDERED: ACETAMINOPHEN 325 MG SUPP.RECT PR ONE (00:30)
[2019-07-26] MEDS: PROPOFOL 1,000 MG/100 ML INFUS..BTL IV PRN ×2 (03:23→08:30)
[2019-07-26] MEDS: PIPERACILLIN SODIUM/TAZOBACTAM 3.375 GM in NORMAL SALINE 100 ML IV SCH ×2 (03:25→09:31)
[2019-07-26] MEDS ORDERED: DIPHENHYDRAMINE HCL 50 MG/ML VIAL IV ONE (04:30)
[2019-07-26 04:40] LABS: ABSOLUTE LYMPHOCYTES (AUTO) 2.6 10^3/uL (0.5-4.7); ABSOLUTE MONOCYTES (AUTO) 0.9 10^3/uL (0.1-1.4); ABSOLUTE NEUT (AUTO) 7.2 10^3/uL (1.7-8.2); BASOPHILS % (AUTO) 0.1 % (0-2); EOSINOPHILS % (AUTO) 0.1 % (0-6); HEMOGLOBIN 9.1 g/dL (12.0-15.5); LYMPHOCYTES % (AUTO) 24.6 % (13-45); MEAN CORPUSCULAR HEMOGLOBIN 25.8 pg (27.0-33.4); MEAN CORPUSCULAR HGB CONC 32.4 g/dL (32.0-36.0); MEAN CORPUSCULAR VOLUME 80 fl (80-97); MONOCYTES % (AUTO) 8.4 % (3-13); PLATELET COUNT 302 10^3/uL (150-450); RED BLOOD COUNT 3.51 10^6/uL (3.72-5.28); RED CELL DISTRIBUTION WIDTH 16.6 % (11.5-14.0); SEGMENTED NEUTROPHILS % (AUTO) 66.8 % (42-78); TOTAL CELLS COUNTED % (AUTO) 100 %; WHITE BLOOD COUNT 10.7 10^3/uL (4.0-10.5)
[2019-07-26 04:48] LABS: ANION GAP 9 (5-19); BLOOD UREA NITROGEN 18 mg/dL (7-20); CARBON DIOXIDE 32 mmol/L (22-30); CHLORIDE 104 mmol/L (98-107); GLUCOSE 159 mg/dL (75-110); PHOSPHORUS 2.6 mg/dL (2.5-4.5)
[2019-07-26] MEDS ORDERED: FENTANYL CITRATE INJ/PF 100 MCG/2 ML AMPUL ONE (05:54)
[2019-07-26] MEDS: HEPARIN SOD (PORCINE) 5,000 UNIT/ML 1 ML VIAL SUBCUT SCH ×3 (06:28→21:53)
[2019-07-26] MEDS: INSULIN REG, HUMAN 100 UNIT/ML 3 ML VIAL (PYX) SUBCUT SCH ×4 (06:29→18:03)
--- NOTE | 2019-07-26 07:15 | PDOC PROGRESS REPORT ---
Subjective Progress Note for:: 07/25/19 Subjective:: 07.25.19: She has been on continued pressure support and CPAP in the last 18 hours. PO2 has improved. Her diarrhea has improved as well. Of note her sodium levels have increased without an increase in creatinine or bicarbonate. This may be related to steroid use. Examination of ventilator settings shows the patient maintaining adequate tidal volume for her height and weight. She has a #8 ET tube and and despite that has a cuff leak that is both audible and demonstrable on mechanical ventilation settings. She is responsive has minimal secretions. In the middle of this afternoon she was reevaluated and found to be suitable for vent liberation. She was extubated successfully. No extubation stridor was noted but she did have secretions which she was able to cough and clear quite effectively. She has remained stable from a respiratory standpoint on multiple examinations. 07.24.19: Patient continues to improve. Her diuresis was held secondary to hypokalemia. She has had no untoward sequelae related to her low potassium. S he has been supplemented and restarted on both Lasix and potassium today. Has been on an SBT however PO2 is not sufficient for safe liberation from the ventilator. Patient was started on a bowel hygiene and has had significant diarrhea culminating in the need for a bowel management program. Fortunately C. difficile is negative. She remains hemodynamically non-labile and afebrile. 07.23.19: Patient has been diuresing in the last 12 to 18 hours. She has not had a sig nificant or dramatic urine output but she also has not had no hemodynamic instability and was able to be transitioned to SBT. She was able to tolerate this but had some apnea episodes of apnea and the Precedex has been discontinued. With reevaluation after the Precedex was transitioned off she was able to tolerate SBT. She did appear to be anxious and she was transitioned back to assist control however this may be related to reduction in her Precedex. Repeat SBT is scheduled to be done this afternoon. Patient had an echocardiogram which showed normal EF with moderate to severe mitral regurgitation, moderate aortic regurgitation, moderate tricuspid regurgitation. Inability to evaluate full pulmonary pressures was unable to be accommodated however she is noted to have high right ventricular pressures. Her sister has been helpful in calming the patient and speaking with her and her point hope ira tongue. 10.21.19: Patient was begun on ventilator wean this morning. She had her PEEP reduced to 8 however could not tolerate any lowering secondary to hypoxia. Her chest x-ray has improved. She is of [place] descent with trisonomy 13 and does not understand the Bengali language. We are awaiting her sister given her close association with the patient and the patient's current intubated state precludes the use of the video survey statistician. She has been hemodynamically stable. Reason For Visit: ARDS Physical Exam Vital Signs: Temp Pulse Resp BP Pulse Ox 98.8 F 86 22 H 137/88 H 97 07/25/19 04:00 07/24/19 16:00 07/25/19 06:13 07/25/19 06:13 07/25/19 06:13 Pulse Oximeter Continuous Start: 07/18/19 19:55 Freq: RTQ4 Status: Hold Protocol: Document 07/19/19 19:35 [facility] (Rec: 07/19/19 20:15 [facility] [id number]) Pulse Oximetry Assessment Oxygen Saturation (92-100) 92 Oxygen Flow Rate (L/min) 6 Oxygen Delivery Method Nasal Cannula Fraction of Inspired Oxygen (FIO2) 44 Equipment Usage Equipment in Use Continuous SpO2 Machine # [id number] Intake & Output 07/24/19 07/25/19 07/26/19 06:59 06:59 06:59 Intake Total 743 640 Output Total 925 1585 Balance -182 -945 Weight 55.3 kg 53.2 kg Physical Exam: Nontoxic intubated 29-year-old [place] female no active distress. Reexamined both prior to extubation and after extubation shows no distress. She is responsive to her sister's voice at bedside. General appearance: PRESENT: no acute distress, cooperative, morbidly obese Additional Comments: Stigmata of Down's with low-set ears and micrognathia after extubation noted to have enlarged tongue. But significant enlarged oral aperture. Eye exam: PRESENT: conjunctiva pink, EOMI, nystagmus, PERRLA. ABSENT: conjunctival injection, scleral icterus Mouth exam: PRESENT: moist, neck supple Teeth exam: PRESENT: dental caries, poor dentation Neck exam: ABSENT: carotid bruit, JVD, lymphadenopathy, tenderness, thyromegaly, tracheal deviation Respiratory exam: PRESENT: clear to auscultation katlyn, unlabored. ABSENT: accessory muscle use, retraction, rhonchi, stridor, tachypnea, wheezes Cardiovascular exam: PRESENT: RRR, +S1, +S2, systolic murmur, tachycardia Murmur grade: 2 Pulses: PRESENT: normal carotid pulses, +1 pedal pulses bilateral Vascular exam: PRESENT: normal capillary refill GI/Abdominal exam: PRESENT: diminished bowel sounds. ABSENT: ascites Results Laboratory Results: 07/25/19 04:00 07/25/19 04:00 07/24/19 07/25/19 07/25/19 14:53 04:00 04:00 WBC 9.2 RBC 3.74 Hgb 9.9 L Hct 30.3 L MCV 81 MCH 26.3 L MCHC 32.5 RDW 17.0 H Plt Count 254 Seg Neutrophils % 83.7 H Carbonic Acid 0.80 L HCO3/H2CO3 Ratio 24:1 ABG pH 7.48 H ABG pCO2 26.5 L ABG pO2 69.5 L ABG HCO3 19.4 L ABG O2 Saturation 95.4 ABG Base Excess -2.7 FiO2 6 Sodium 149.8 H Potassium 4.1 Chloride 113 H Carbon Dioxide 24 Anion Gap 13 BUN 17 Creatinine 0.64 Est GFR ( Amer) > 60 Glucose 207 H Calcium 7.6 L Phosphorus 3.5 Magnesium 2.1 07/25/19 06:55 WBC RBC Hgb Hct MCV MCH MCHC RDW Plt Count Seg Neutrophils % Carbonic Acid 1.19 HCO3/H2CO3 Ratio 20:1 ABG pH 7.42 ABG pCO2 39.6 ABG pO2 89.0 ABG HCO3 24.8 H ABG O2 Saturation 96.9 ABG Base Excess 0.3 FiO2 25% Sodium Potassium Chloride Carbon Dioxide Anion Gap BUN Creatinine Est GFR ( Amer) Glucose Calcium Phosphorus Magnesium Impressions: KUB X-Ray 07/23/19 00:00 IMPRESSION: The tip of the enteric tube projects past the gastroesophageal junction and within the gastric antrum. Assessment & Plan - Diagnosis (1) ARDS (adult respiratory distress syndrome) Is this a current diagnosis for this admission?: Yes (2) Aspiration pneumonia due to vomitus Qualifiers: Laterality: bilateral Lung location: unspecified part of lung Qualified Code(s): J69.0 - Pneumonitis due to inhalation of food and vomit Is this a current diagnosis for this admission?: Yes (3) Acute postoperative respiratory failure Is this a current diagnosis for this admission?: Yes (4) Acute respiratory failure with hypoxia Is this a current diagnosis for this admission?: Yes (5) Diabetes mellitus type 2 in obese Is this a current diagnosis for this admission?: Yes (6) Down syndrome Is this a current diagnosis for this admission?: Yes (7) Severe mitral valve regurgitation Is this a current diagnosis for this admission?: Yes (8) Moderate aortic regurgitation Is this a current diagnosis for this admission?: Yes (9) Moderate tricuspid regurgitation Is this a current diagnosis for this admission?: Yes (10) 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 Is this a current diagnosis for this admission?: Yes - Time Time Spent with patient: 35 or more minutes Total Critical Time (Minutes): 68 Medications reviewed and adjusted accordingly: Yes - Inpatient Certification Based on my medical assessment, after consideration of the patient's comorbidities, presenting symptoms, or acuity I expect that the services needed warrant INPATIENT care.: Yes I certify that my determination is in accordance with my understanding of Medicare's requirements for reasonable and necessary INPATIENT services [42 CFR 412.3e].: Yes Medical Necessity: Significant Comorbidiites Make Outpatient Treatment Too Risky, Need For Continuous Telemetry Monitoring, Need for Neurological Checks, Need for Pain Control, Need for IV Antibiotics Post Hospital Care: D/C Restaurant Kitchen Manager Documentation - Plan Summary Plan Summary: 07.25.19: Patient was successfully extubated after rounds. She still has a tentative respiratory status secondary to her inability to understand patient given her limited functional capacity mentally. He is at risk for reintubation and will continue to monitor in the ICU. Plans are for her to have a repeat TTE when her condition has stabilized. NG tube is in place and will continue tube feeds as she transitions. She is obviously deconditioned and her functional status at a baseline state is limited. Will need official cardiac evaluation after second TTE. 07.24.19: We will continue to keep the patient on pressure support and follow her parameters while diuresing. Concern that her ABG may have a venous admixture component given how stable her oxygen saturation and respiratory status is. We will continue to monitor for appropriate liberation from venti lator. What I am concerned about is that given her limited mental capacity and limited ability to understand secondary to her Down syndrome, she may not tolerate noninvasive ventilation which would be most beneficial and would help us to liberate her from the ventilator. I had a lengthy discussion with the sister who is the family spokesperson and the medical power of commercial real estate attorney. We discussed the patient's valvular disease and at first they were reticent to have any therapy. They have agreed that they would want this and want her to be full code. We talked about a possible VICTORINO however given her recent illness this may be artificially elevated but may improve once she is off the ventilator. If we are unable to wean her we may be forced to reconsider this idea. I did speak with cardiology (Dr. Saldivar) who also recommends that no VICTORINO be done until the patient is improved and stable. Continue to follow her electrolyte panel and response to diuresis. Plan is to liberate from the ventilator to noninvasive ventilation (high flow). X-ray is dramatically improved and she shows no signs of aspiration pneumonia at this time. All antibiotics have been discontinued. She is on a steroid wean as well. We will restart tube feeds and an NG tube has been placed secondary to her ill illness and anticipation for liberation from the ventilator. 19: Overall the patient's respiratory condition continues to improve. Will continue diuresis and supportive care. Has significant valvular disease of her heart. Of most significant is the mitral valve. The true significance would need to be measured by VICTORINO however after discussion with family they would not want surgery or any aggressive care. Declined further rest of work-up but agreed to medical management. I have asked the family to consider DNR status and they will have a group family discussion determine the suitability of the status. The sister endorses that the patient has been having heart and lung issues prior to this admission. Continue supportive care and medicinal therapy to help improve her volume status. We will restart tube feedings after NG tube was placed. NG tube is being placed in preparation for possible liberation from ventilator. To be of abdomen is evaluated NG tube in appropriate position. There is stool and will start bowel hygiene program. 07.22.19: Patient has improved including her chest x-ray. She is still not neurologically intact to allow for safe liberation from mechanical ventilation. Furthermore she is still relatively hypoxic on higher levels of PEEP. We will add diuretic today to achieve negative fluid balance. I also ordered an echocardiogram to evaluate the patient's valvular function and to rule out CHF and cardiomyopathy as a cause for failure. Patients with trisonomy often develop Eisenmenger's complex. We will continue to provide supportive care. Apparently she did not tolerate her tube feeds well but will continue to follow this phenomena. To do to monitor patient's glucose and response to treatment. I discontinued her antibiotics. We will await the sister's arrival to discuss the next plan of care. Although not typically advised given this patient's unique circumstances the use of her family to communicate with the patient is of paramount imes ICU care secondary to acute respiratory distress with hypoxia maintained on mechanical ventilation, aspiration pneumonia with ARDS Patient seen in multidisciplinary rounds. Care of in ICU patient is ongoing and dynamic. This note represents a static representation of ongoing care in the last 24 hours. Was given completed and entered via computer are not always reflective of actual time done. Medical power of commercial real estate attorney is: Mother Patient requires ICU care secondary to respiratory failure with resolving ARDS from Aspiration
[2019-07-26 07:18] LABS: ARTERIAL BLOOD BASE EXCESS 5.4 mmol/L; ARTERIAL BLOOD FIO2 30%; ARTERIAL BLOOD H2CO3 1.04 mmol/L (1.05-1.35); ARTERIAL BLOOD HCO3 28.2 mmol/L (20-24); ARTERIAL BLOOD O2 SATURATION 98.9 % (94-98); ARTERIAL BLOOD PCO2 34.6 mmHg (35-45); ARTERIAL BLOOD PH 7.53 (7.35-7.45); ARTERIAL BLOOD PO2 129.6 mmHg (80-100); ARTERIAL BLOOD TOTAL CO2 29.3 mmol/L (21-25)
[2019-07-26] MEDS: MINERAL OIL/PETROLATUM,WHITE OPH OINT 3.5 GM OU SCH ×3 (07:25→21:54)
--- NOTE | 2019-07-26 08:28 | RADIOLOGY REPORT (SQ) ---
EXAM DESCRIPTION: CHEST SINGLE VIEW COMPLETED DATE/TIME: 07/26/2019 6:06 am REASON FOR STUDY: respiratory failure COMPARISON: None. EXAM PARAMETERS: NUMBER OF VIEWS: One view. TECHNIQUE: Single frontal radiographic view of the chest acquired. RADIATION DOSE: NA LIMITATIONS: None. FINDINGS: LUNGS AND PLEURA: There is an asymmetric opacity in the left base. The left lateral costo phrenic sulcus is blunted. There is no pneumothorax or pleural effusion. MEDIASTINUM AND HILAR STRUCTURES: Stable mediastinal and hilar contours. HEART AND VASCULAR STRUCTURES: The cardiac silhouette and pulmonary vasculature are within normal nathan its. BONES: No acute findings. HARDWARE: The tip of the endotracheal tube projects 2.3 cm of the martha. The tip of the enteric tub e projects past the gastroesophageal junction and within the gastric lumen. OTHER: No other finding. IMPRESSION: 1. Tubes and lines as above. 2. Stable asymmetric opacity in the left base and blunting of the left lateral costophrenic sulcus. TECHNICAL DOCUMENTATION: JOB ID: [id number] [employer] All Rights Reserved Reading location - IP/workstation name: [email or web address]
--- NOTE | 2019-07-26 08:36 | RADIOLOGY REPORT (SQ) ---
EXAM DESCRIPTION: KUB/ABDOMEN (SINGLE VIEW) COMPLETED DATE/TIME: 07/26/2019 8:26 am REASON FOR STUDY: OG tube displacement K02.9 DENTAL CARIES, UNSPECIFIED COMPARISON: None. NUMBER OF VIEWS: One view. TECHNIQUE: Supine radiographic image of the abdomen acquired. LIMITATIONS: None. FINDINGS: The tip and side hole of the enteric tube project past the gastroesophageal junction and w ithin the gastric lumen. There are no dilated loops of bowel in the abdomen. There is no pneumatosi s or portal venous gas. IMPRESSION: The tip and side hole of the enteric tube project within the gastric lumen. TECHNICAL DOCUMENTATION: JOB ID: [id number] [employer]- All Rights Reserved Reading location - IP/workstation name: [email or web address]
[2019-07-26] MEDS: LORATADINE 10 MG TABLET NG SCH (09:21)
[2019-07-26] MEDS: TOPIRAMATE 25 MG TABLET NG SCH (09:22)
[2019-07-26] MEDS: FUROSEMIDE INJ/PF 20 MG/2 ML SDV IV SCH ×2 (09:22→21:53)
[2019-07-26] MEDS: FAMOTIDINE 20 MG TABLET PO SCH ×2 (09:22→21:54)
[2019-07-26] MEDS: 1/2 NORMAL SALINE 1,000 ML IV PRN (09:31)
[2019-07-26] MEDS: MULTIVITAMIN ORAL LIQUID 60 ML NG SCH (09:41)
[2019-07-26] MEDS: DEXMEDETOMIDINE IN 0.9 % NACL 400 MCG/100 ML RTUPB IV PRN ×2 (09:56→20:49)
[2019-07-26] MEDS: POTASSIUM CHLORIDE 20 MEQ PACKET NG SCH ×3 (11:04→15:42)
[2019-07-26] MEDS: POTASSIUM CHLORIDE 10 MEQ CAPSULE.ER PO SCH (11:05)
[2019-07-26] MEDS ORDERED: LORAZEPAM INJ 2 MG/1 ML VIAL ONE (11:29)
[2019-07-26] MEDS ORDERED: LEVETIRACETAM 1000 MG/NACL-ISO 1,000 MG/100 ML RTUPB IV ONE (12:30)
[2019-07-26] MEDS: DEXAMETHASONE SOD PHOSPHATE INJ 4 MG/1 ML VIAL IV SCH ×2 (14:13→18:04)
--- NOTE | 2019-07-26 15:14 | PDOC PROGRESS REPORT ---
Subjective Progress Note for:: 07/26/19 Subjective:: 07.26.19: Since respiratory status worsened throughout the day requiring noninvasive ventilation in the form of high flow and eventually BiPAP. She continued to decline and required intubation late yesterday evening. She has been stable hemodynamically since the intubation. She has become quite active and has pulled out her bowel maintenance tube and partially pulled out her OG tube. Been no ventilator urgencies and no further hypoxia. After rounds, patient noted to have tonic-clonic movement. Discussion with family discloses that she has 3-4 seizures/week. Has been difficult to get neurology follow up. Patient had stat EEG ordered as well [place]. No fever, no hemodynamic instability. 07.25.19: She has been on continued pressure support and CPAP in the last 18 hours. PO2 has improved. Her diarrhea has improved as well. Of note her sodium levels have increased without an increase in creatinine or bicarbonate. This may be related to steroid use. Examination of ventilator settings shows the patient maintaining adequate tidal volume for her height and weight. She has a #8 ET tube and and despite that has a cuff leak that is both audible and demonstrable on mechanical ventilation settings. She is responsive has minimal secretions. In the middle of this afternoon she was reevaluated and found to be suitable for vent liberation. She was extubated successfully. No extubation stridor was noted but she did have secretions which she was able to cough and clear quite effectively. She has remained stable from a respiratory standpoint on multiple examinations. 07.24.19: Patient continues to improve. Her diuresis was held secondary to hypokalemia. She has had no untoward sequelae related to her low potassium. She has been supplemented and restarted on both Lasix and potassium today. Has been on an SBT however PO2 is not sufficient for safe liberation from the ventilator. Patient was started on a bowel hygiene and has had significant diarrhea culminating in the need for a bowel management program. Fortunately C. difficile is negative. She remains hemodynamically non-labile and afebrile. 07.23.19: Patient has been diuresing in the last 12 to 18 hours. She has not had a significant or dramatic urine output but she also has not had no hemodynamic i nstability and was able to be transitioned to SBT. She was able to tolerate this but had some apnea episodes of apnea and the Precedex has been discontinued. With reevaluation after the Precedex was transitioned off she was able to tolerate SBT. She did appear to be anxious and she was transitioned back to assist control however this may be related to reduction in her Precedex. Repeat SBT is scheduled to be done this afternoon. Patient had an echocardiogram which showed normal EF with moderate to severe mitral regurgitation, moderate aortic regurgitation, moderate tricuspid regurgitation. Inability to evaluate full pulmonary pressures was unable to be accommodated however she is noted to have high right ventricular pressures. Her sister has been helpful in calming the patient and speaking with her and her barrow tongue. 07.22.19: Patient was begun on ventilator wean this morning. She had her PEEP reduced to 8 however could not tolerate any lowering secondary to hypoxia. Her chest x-ray has improved. She is of [place] descent with trisonomy 13 and does not understand the Maltese language. We are awaiting her sister given her close association with the patient and the patient's current intubated state precludes the use of the video branch mechanic. She has been hemodynamically stable. Reason For Visit: ARDS Physical Exam Vital Signs: Temp Pulse Resp BP Pulse Ox 98.1 F 67 16 133/87 H 100 07/26/19 06:00 07/26/19 04:19 07/26/19 06:53 07/26/19 06:53 07/26/19 06:53 Pulse Oximeter Continuous Start: 07/18/19 19:55 Freq: RTQ4 Status: Hold Protocol: Document 07/19/19 19:35 [facility] (Rec: 07/19/19 20:15 [facility] [id number]) Pulse Oximetry Assessment Oxygen Saturation (92-100) 92 Oxygen Flow Rate (L/min) 6 Oxygen Delivery Method Nasal Cannula Fraction of Inspired Oxygen (FIO2) 44 Equipment Usage Equipment in Use Continuous SpO2 Machine # [id number] Intake & Output 07/25/19 07/26/19 07/27/19 06:59 06:59 06:59 Intake Total 640 468 Output Total 6411 1345 Balance -940 -1585 Weight 53.2 kg 53.4 kg Physical Exam: Intubated, non-toxic, ill, [place] female with Trisonomy facial features. General appearance: PRESENT: no acute distress, obese Eye exam: PRESENT: conjunctiva pink, PERRLA. ABSENT: conjunctival injection, nystagmus, scleral icterus Teeth exam: PRESENT: edentulous Neck exam: PRESENT: full ROM. ABSENT: JVD, lymphadenopathy, meningismus, thyromegaly, tracheal deviation Respiratory exam: PRESENT: crackles - Right, rhonchi - left, unlabored. ABSENT: accessory muscle use, wheezes Cardiovascular exam: PRESENT: RRR, +S1, +S2. ABSENT: rubs, systolic murmur, tachycardia Murmur grade: 2 Pulses: PRESENT: +1 pedal pulses bilateral Vascular exam: PRESENT: normal capillary refill GI/Abdominal exam: PRESENT: normal bowel sounds, soft. ABSENT: ascites, distended, firm, guarding, mass, Dowd's sign, rebound, rigid, tenderness Gentrourinary exam: PRESENT: indwelling catheter Extremities exam: ABSENT: joint swelling, pedal edema Musculoskeletal exam: PRESENT: deformity - right foot. ABSENT: tenderness Neurological exam: PRESENT: altered. ABSENT: motor sensory deficit Psychiatric exam: PRESENT: agitated Focused psych exam: PRESENT: restlessness Skin exam: PRESENT: dry, normal color. ABSENT: cyanosis, erythema, mottled, pallor, petechiae, urticaria, vesicles Results Laboratory Results: 07/26/19 04:00 07/26/19 04:00 07/25/19 07/25/19 07/26/19 06:55 20:00 04:00 WBC 10.7 H RBC 3.51 L Hgb 9.1 L Hct 28.0 L MCV 80 MCH 25.8 L MCHC 32.4 RDW 16.6 H Plt Count 302 Seg Neutrophils % 66.8 Carbonic Acid 1.19 1.09 HCO3/H2CO3 Ratio 20:1 27:1 ABG pH 7.42 7.53 H ABG pCO2 39.6 36.3 ABG pO2 89.0 155.8 H ABG HCO3 24.8 H 29.6 H ABG O2 Saturation 96.9 99.2 H ABG Base Excess 0.3 6.6 FiO2 25% 40% Sodium Potassium Chloride Carbon Dioxide Anion Gap BUN Creatinine Est GFR ( Amer) Glucose Calcium Phosphorus Magnesium 07/26/19 04:00 WBC RBC Hgb Hct MCV MCH MCHC RDW Plt Count Seg Neutrophils % Carbonic Acid HCO3/H2CO3 Ratio ABG pH ABG pCO2 ABG pO2 ABG HCO3 ABG O2 Saturation ABG Base Excess FiO2 Sodium 145.2 H Potassium 3.0 L* D Chloride 104 Carbon Dioxide 32 H Anion Gap 9 BUN 18 Creatinine 0.86 Est GFR ( Amer) > 60 Glucose 159 H Calcium 8.0 L Phosphorus 2.6 Magnesium 1.8 Impressions: KUB X-Ray 07/23/19 00:00 IMPRESSION: The tip of the enteric tube projects past the gastroesophageal junction and within the gastric antrum. Status: Image reviewed by me Assessment & Plan - Diagnosis (1) Seizure Is this a current diagnosis for this admission?: Yes (2) ARDS (adult respiratory distress syndrome) Is this a current diagnosis for this admission?: Yes (3) Aspiration pneumonia due to vomitus Qualifiers: Laterality: bilateral Lung location: unspecified part of lung Qualified Code(s): J69.0 - Pneumonitis due to inhalation of food and vomit Is this a current diagnosis for this admission?: Yes (4) Acute postoperative respiratory failure Is this a current diagnosis for this admission?: Yes (5) Acute respiratory failure with hypoxia Is this a current diagnosis for this admission?: Yes (6) Diabetes mellitus type 2 in obese Is this a current diagnosis for this admission?: Yes (7) Down syndrome Is this a current diagnosis for this admission?: Yes (8) Severe mitral valve regurgitation Is this a current diagnosis for this admission?: Yes (9) Moderate aortic regurgitation Is this a current diagnosis for this admission?: Yes (10) Moderate tricuspid regurgitation Is this a current diagnosis for this admission?: Yes (11) 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 Is this a current diagnosis for this admission?: Yes - Time Time Spent with patient: 35 or more minutes Total Critical Time (Minutes): 65 Level of Care: ICU - Day 6-7 Medications reviewed and adjusted accordingly: Yes Anticipated discharge: Acute Rehab - Inpatient Certification Based on my medical assessment, after consideration of the patient's comorbidities, presenting symptoms, or acuity I expect that the services needed warrant INPATIENT care.: Yes I certify that my determination is in accordance with my understanding of Medicare's requirements for reasonable and necessary INPATIENT services [42 CFR 412.3e].: Yes Medical Necessity: Need Close Monitoring Due to Risk of Patient Decompensation, Need For IV Fluids, Need for Neurological Checks, Need for Pain Control, Risk of Complication if Not Cared For in Hospital - Plan Summary Plan Summary: 07.26.19: From a respiratory standpoint the patient has improved. The chest x- ray is essentially clear. Yesterday's events appear to be related to swelling without stridor of her pharynx given the swelling of the arytenoids that were seen on intubation. We will continue the Decadron. Given the fact that she has type 2 diabetes on steroids we will continue to follow glucose. She is on tube feeds as well and we will supplement further as needed. We will be sure to discontinue any seizure inducing medications. She had been on Levaquin on admission to the ICU but this is been discontinued. Have started Keppra for seizures. We currently do not have neurology support but have the ability to obtain EEGs. Should we have neurological issues we will reach out to a tertiary care center for advice. At this point given her past history of seizures weekly (3-4), at this point I am confident that we will be able to manage this situation. I have asked for EEG and am waiting the final results. The patient's sister states that she has prolonged postictal states. We will continue to monitor her neurological status. I have added propofol to suppress any seizure focus at this point but have not started until the EEG is completed. Antibiotics will be discontinued today. Continue tube feeds. I had a discussion with the family regarding the possible need for tracheostomy. Her insurance would not allow her to be transferred to an LTAC center and we will attempt to wean the patient successfully. 07.25.19: Patient was successfully extubated after rounds. She still has a tentative respiratory status secondary to her inability to understand patient given her limited functional capacity mentally. He is at risk for reintubation and will continue to monitor in the ICU. Plans are for her to have a repeat TTE when her condition has stabilized. NG tube is in place and will continue tube feeds as she transitions. She is obviously deconditioned and her functional status at a baseline state is limited. Will need official cardiac evaluation after second TTE. 07.24.19: We will continue to keep the patient on pressure support and follow her parameters while diuresing. Concern that her ABG may have a venous admixture component given how stable her oxygen saturation and respiratory status is. We will continue to monitor for appropriate liberation from ventilator. What I am concerned about is that given her limited mental capacity and limited ability to understand secondary to her Down syndrome, she may not tolerate noninvasive ventilation which would be most beneficial and would help us to liberate her from the ventilator. I had a lengthy discussion with the sister who is the family spokesperson and the medical power of commonwealth attorney. We discussed the patient's valvular disease and at first they were reticent to have any therapy. They have agreed that they would want this and want her to be full code. We talked about a possible VICTORINO however given her recent illness this may be artificially elevated but may improve once she is off the ventilator. If we are unable to wean her we may be forced to reconsider this idea. I did speak with cardiology (Dr. Saldivar) who also recommends that no VICTORINO be done until the patient is improved and stable. Continue to follow her electrolyte panel and response to diuresis. Plan is to liberate from the ventilator to noninvasive ventilation (high flow). X-ray is dramatically improved and she shows no signs of aspiration pneumonia at this time. All antibiotics have been discontinued. She is on a steroid wean as well. We will restart tube feeds and an NG tube has been placed secondary to her ill illness and anticipation for liberation from the ventilator. 19: Overall the patient's respiratory condition continues to improve. Will continue diuresis and supportive care. Has significant valvular disease of her heart. Of most significant is the mitral valve. The true significance would need to be measured by VICTORINO however after discussion with family they would not want surgery or any aggressive care. Declined further rest of work-up but agreed to medical management. I have ask ed the family to consider DNR status and they will have a group family discussion determine the suitability of the status. The sister endorses that the patient has been having heart and lung issues prior to this admission. Continue supportive care and medicinal therapy to help improve her volume st atus. We will restart tube feedings after NG tube was placed. NG tube is being placed in preparation for possible liberation from ventilator. To be of abdomen is evaluated NG tube in appropriate position. There is stool and will start bowel hygiene program. 07.22.19: Patient has improved including her chest x-ray. She is still not neurologically intact to allow for safe liberation from mechanical ventilation. Furthermore she is still relatively hypoxic on higher levels of PEEP. We will add diuretic today to achieve negative fluid balance. I also ordered an echocardiogram to evaluate the patient's valvular function and to rule out CHF and cardiomyopathy as a cause for failure. Patients with trisonomy often develop Eisenmenger's complex. We will continue to provide supportive care. Apparently she did not tolerate her tube feeds well but will continue to follow this phenomena. To do to monitor patient's glucose and response to treatment. I discontinued her antibiotics. We will await the sister's arrival to discuss the next plan of care. Although not typically advised given this patient's unique circumstances the use of her family to communicate with the patient is of paramount imes ICU care secondary to acute respiratory distress with hypoxia maintained on mechanical ventilation, aspiration pneumonia with ARDS Patient seen in multidisciplinary rounds. Care of in ICU patient is ongoing and dynamic. This note represents a static representation of ongoing care in the last 24 hours. Was given completed and entered via computer are not always reflective of actual time done. Medical power of commonwealth attorney is: Mother Patient requires ICU care secondary to
--- NOTE | 2019-07-26 16:21 | NEURO WORKBENCH EEG REPORT ---
EEG Report Patient: Marta Perez ID: [id number] Referring Doctor: Chuckie Terry DOS: 07/26/19 Medications: Ventolin, Lipitor, decadron, Lexapro, Pepcid, furosemide, porcine, pyxis, Claritin, multivitamins, KCl, Topamax, Desyrel, lacri-lube, precedex History This is a 29 year old woman with a history of seizures, hypercholesterolemia, type 2 diabetes, depression, club foot surgery who was admitted on 07/19/19 with ARDS, on life support and had two seizures today lasting a few minutes each. This EEG was requested for seizures. EEG Interpretation This EEG was recorded in the comatose state. The background was monotonous with diffuse delta activity and some theta, discontinuity, and periodic diffuse alpha frequency that appeared similar to spindle activity. There was no reactivity to passive eye opening/closing. Photic stimulation resulted in a mild driving response in the posterior regions. There were sharply contoured waveforms (maximal frontally) during the periods of activity but there were no definitive epileptiform abnormalities. The EKG showed a regular rhythm. EEG Classification Spindle coma Discontinuous Generalized background slowing EEG Impression This EEG is severely abnormal. It is consistent with severe diffuse cerebral dysfunction. Etiology can vary and include, amongst others, hypoxic, infectious, traumatic, seizure, etc. Recovery can vary, often dependent on etiology. Repeat EEG may be considered if clinically indicated. INTERPRETING NEUROLOGIST: Keisha Chase MD, FRCPC Board Certified in Neurology, with special qualification in Child Neurology, and in Clinical Neurophysiology [facility]
[2019-07-26 18:23] LABS: ARTERIAL BLOOD FIO2 30%; ARTERIAL BLOOD HCO3 25.2 mmol/L (20-24); ARTERIAL BLOOD O2 SATURATION 99.3 % (94-98); ARTERIAL BLOOD PCO2 29.9 mmHg (35-45); ARTERIAL BLOOD PH 7.54 (7.35-7.45); ARTERIAL BLOOD PO2 164.1 mmHg (80-100); ARTERIAL BLOOD TOTAL CO2 26.1 mmol/L (21-25)
[2019-07-26] MEDS: ESCITALOPRAM OXALATE 10 MG TABLET NG SCH (21:53)
[2019-07-26] MEDS: LEVETIRACETAM 500 MG/NACL-ISO 500 MG/100 ML RTUPB IV SCH (21:53)
[2019-07-26] MEDS: TRAZODONE HCL 50 MG TABLET NG SCH (21:54)
[2019-07-26] MEDS: ATORVASTATIN CALCIUM 20 MG TABLET NG SCH (21:54)
[2019-07-26] MEDS ORDERED: LEVETIRACETAM 500 MG in NORMAL SALINE 100 ML IV SCH (22:00)
[2019-07-26] MEDS: HYDRALAZINE HCL INJ/PF 20 MG/1 ML SDV IV PRN (22:58)
[2019-07-27] MEDS: INSULIN REG, HUMAN 100 UNIT/ML 3 ML VIAL (PYX) SUBCUT SCH ×5 (00:49→23:38)
[2019-07-27] MEDS: DEXAMETHASONE SOD PHOSPHATE INJ 4 MG/1 ML VIAL IV SCH ×3 (01:08→17:26)
[2019-07-27] MEDS: DEXMEDETOMIDINE IN 0.9 % NACL 400 MCG/100 ML RTUPB IV PRN ×5 (03:21→23:37)
[2019-07-27] MEDS: HYDRALAZINE HCL INJ/PF 20 MG/1 ML SDV IV PRN ×2 (03:21→11:03)
[2019-07-27] MEDS: 1/2 NORMAL SALINE 1,000 ML IV PRN ×2 (03:22→21:14)
[2019-07-27] MEDS: ALBUTEROL SULFATE 0.083% NEB 2.5 MG/3 ML AMPUL NEB SCH ×5 (04:15→20:30)
[2019-07-27 04:56] LABS: ANION GAP 13 (5-19); BLOOD UREA NITROGEN 16 mg/dL (7-20); CALCIUM 7.8 mg/dL (8.4-10.2); CARBON DIOXIDE 21 mmol/L (22-30); CHLORIDE 108 mmol/L (98-107); GLUCOSE 267 mg/dL (75-110); POTASSIUM 4.6 mmol/L (3.6-5.0)
[2019-07-27] MEDS: MINERAL OIL/PETROLATUM,WHITE OPH OINT 3.5 GM OU SCH ×3 (05:21→21:14)
[2019-07-27] MEDS: HEPARIN SOD (PORCINE) 5,000 UNIT/ML 1 ML VIAL SUBCUT SCH ×3 (05:24→21:12)
--- NOTE | 2019-07-27 06:41 | PDOC PROGRESS REPORT ---
Subjective Progress Note for:: 07/27/19 Subjective:: Sedated Reason For Visit: ARDS Physical Exam Vital Signs: Temp Pulse Resp BP Pulse Ox 97.9 F 74 16 142/99 H 100 07/27/19 06:00 07/27/19 04:10 07/27/19 06:00 07/27/19 05:46 07/27/19 06:00 Pulse Oximeter Continuous Start: 07/18/19 19:55 Freq: RTQ4 Status: Hold Protocol: Document 07/19/19 19:35 [facility] (Rec: 07/19/19 20:15 [facility] [id number]) Pulse Oximetry Assessment Oxygen Saturation (92-100) 92 Oxygen Flow Rate (L/min) 6 Oxygen Delivery Method Nasal Cannula Fraction of Inspired Oxygen (FIO2) 44 Equipment Usage Equipment in Use Continuous SpO2 Machine # [id number] Intake & Output 07/25/19 07/26/19 07/27/19 06:59 06:59 06:59 Intake Total 341 648 3093 Output Total [address] [place] [phone] Weight 53.2 kg 53.4 kg 52.7 kg General appearance: PRESENT: no acute distress, well-developed, well-nourished Head exam: PRESENT: atraumatic, normocephalic Eye exam: PRESENT: PERRLA Ear exam: PRESENT: normal external ear exam Additional comments: ETT and OG present Respiratory exam: PRESENT: clear to auscultation katlyn, decreased breath sounds, unlabored Cardiovascular exam: PRESENT: RRR. ABSENT: diastolic murmur, rubs, systolic murmur Murmur grade: 2 Vascular exam: PRESENT: normal capillary refill GI/Abdominal exam: PRESENT: normal bowel sounds, soft. ABSENT: distended, guarding, mass, organolmegaly, rebound, tenderness Rectal exam: PRESENT: deferred Gentrourinary exam: PRESENT: indwelling catheter Extremities exam: PRESENT: full ROM Musculoskeletal exam: PRESENT: normal inspection Neurological exam: PRESENT: altered Additional comments: Sedated Skin exam: PRESENT: dry, intact, warm. ABSENT: cyanosis, rash Results Laboratory Results: 07/26/19 04:00 07/27/19 04:12 07/26/19 07/26/19 07/26/19 06:35 18:15 20:01 Carbonic Acid 1.04 L 0.90 L HCO3/H2CO3 Ratio 27:1 28:1 ABG pH 7.53 H 7.54 H ABG pCO2 34.6 L 29.9 L ABG pO2 129.6 H 164.1 H ABG HCO3 28.2 H 25.2 H ABG O2 Saturation 98.9 H 99.3 H ABG Base Excess 5.4 3.0 FiO2 30% 30% Sodium Potassium 3.7 Chloride Carbon Dioxide Anion Gap BUN Creatinine Est GFR ( Amer) Glucose Calcium Magnesium 07/27/19 04:12 Carbonic Acid HCO3/H2CO3 Ratio ABG pH ABG pCO2 ABG pO2 ABG HCO3 ABG O2 Saturation ABG Base Excess FiO2 Sodium 141.7 Potassium 4.6 Chloride 108 H Carbon Dioxide 21 L Anion Gap 13 BUN 16 Creatinine 0.56 Est GFR ( Amer) > 60 Glucose 267 H Calcium 7.8 L Magnesium 1.9 Impressions: KUB X-Ray 07/26/19 00:00 IMPRESSION: The tip and side hole of the enteric tube project within the gastric lumen. Chest X-Ray 07/26/19 06:00 IMPRESSION: 1. Tubes and lines as above. 2. Stable asymmetric opacity in the left base and blunting of the left lateral costophrenic sulcus. Assessment & Plan - Diagnosis (1) ARDS (adult respiratory distress syndrome) Is this a current diagnosis for this admission?: Yes Plan: The ARDS is resolved. However she failed extubation and is reintubated due to weakness. She is alkalotic and may need change from volume control. (2) Diabetes mellitus type 2 in obese Is this a current diagnosis for this admission?: Yes Plan: Needs better control. TF are at goal. (3) Down syndrome Is this a current diagnosis for this admission?: Yes Plan: Certainly a communication impediment. - Time Time Spent with patient: 35 or more minutes Total Critical Time (Minutes): 35 Level of Care: ICU Medications reviewed and adjusted accordingly: Yes Anticipated discharge: SNF Within: within 72 hours - Inpatient Certification Based on my medical assessment, after consideration of the patient's comorbidities, presenting symptoms, or acuity I expect that the services needed warrant INPATIENT care.: Yes I certify that my determination is in accordance with my understanding of Medicare's requirements for reasonable and necessary INPATIENT services [42 CFR 412.3e].: Yes Medical Necessity: Failure to Improve With Outpatient Therapy, Significant Comorbidiites Make Outpatient Treatment Too Risky, Need Close Monitoring Due to Risk of Patient Decompensation, Need For Continuous Telemetry Monitoring, Need for Nebulizer Therapy and Monitoring of Response, Need for IV Antibiotics, Risk of Complication if Not Cared For in Hospital
[2019-07-27] MEDS: MULTIVITAMIN ORAL LIQUID 60 ML NG SCH (09:19)
[2019-07-27] MEDS: FUROSEMIDE INJ/PF 20 MG/2 ML SDV IV SCH ×2 (09:20→21:11)
[2019-07-27] MEDS: TOPIRAMATE 25 MG TABLET NG SCH (09:20)
[2019-07-27] MEDS: LORATADINE 10 MG TABLET NG SCH (09:20)
[2019-07-27] MEDS: FAMOTIDINE 20 MG TABLET PO SCH ×2 (09:21→21:10)
[2019-07-27] MEDS: LEVETIRACETAM 500 MG/NACL-ISO 500 MG/100 ML RTUPB IV SCH ×2 (10:32→21:10)
[2019-07-27] MEDS ORDERED: INSULIN GLARGINE,HUM.REC.ANLOG 1,000 UNIT/10 ML VIAL (PYX) SUBCUT ONE (17:00)
[2019-07-27] MEDS: ATORVASTATIN CALCIUM 20 MG TABLET NG SCH (21:10)
[2019-07-27] MEDS: ESCITALOPRAM OXALATE 10 MG TABLET NG SCH (21:10)
[2019-07-27] MEDS: TRAZODONE HCL 50 MG TABLET NG SCH (21:10)
[2019-07-28] MEDS: ALBUTEROL SULFATE 0.083% NEB 2.5 MG/3 ML AMPUL NEB SCH ×6 (00:50→20:53)
[2019-07-28] MEDS: DEXAMETHASONE SOD PHOSPHATE INJ 4 MG/1 ML VIAL IV SCH ×3 (01:14→17:42)
[2019-07-28] MEDS: DEXMEDETOMIDINE IN 0.9 % NACL 400 MCG/100 ML RTUPB IV PRN ×2 (03:56→09:18)
[2019-07-28 04:35] LABS: ABSOLUTE LYMPHOCYTES (AUTO) 0.9 10^3/uL (0.5-4.7); ABSOLUTE MONOCYTES (AUTO) 0.4 10^3/uL (0.1-1.4); BASOPHILS % (AUTO) 0.2 % (0-2); MEAN CORPUSCULAR HEMOGLOBIN 26.2 pg (27.0-33.4); MEAN CORPUSCULAR HGB CONC 32.3 g/dL (32.0-36.0); MEAN CORPUSCULAR VOLUME 81 fl (80-97); MONOCYTES % (AUTO) 3.3 % (3-13); PLATELET COUNT 359 10^3/uL (150-450); RED BLOOD COUNT 4.19 10^6/uL (3.72-5.28); RED CELL DISTRIBUTION WIDTH 16.9 % (11.5-14.0); SEGMENTED NEUTROPHILS % (AUTO) 88.5 % (42-78); TOTAL CELLS COUNTED % (AUTO) 100 %; WHITE BLOOD COUNT 11.3 10^3/uL (4.0-10.5)
[2019-07-28 04:46] LABS: ANION GAP 9 (5-19); BLOOD UREA NITROGEN 18 mg/dL (7-20); CALCIUM 8.9 mg/dL (8.4-10.2); CARBON DIOXIDE 25 mmol/L (22-30); CHLORIDE 102 mmol/L (98-107); GLUCOSE 335 mg/dL (75-110); POTASSIUM 4.8 mmol/L (3.6-5.0)
[2019-07-28] MEDS: INSULIN REG, HUMAN 100 UNIT/ML 3 ML VIAL (PYX) SUBCUT SCH ×3 (05:07→17:41)
[2019-07-28] MEDS: MINERAL OIL/PETROLATUM,WHITE OPH OINT 3.5 GM OU SCH ×3 (05:07→21:48)
[2019-07-28] MEDS: HEPARIN SOD (PORCINE) 5,000 UNIT/ML 1 ML VIAL SUBCUT SCH ×3 (05:07→21:46)
[2019-07-28] MEDS: MULTIVITAMIN ORAL LIQUID 60 ML NG SCH (09:06)
[2019-07-28] MEDS: FAMOTIDINE 20 MG TABLET PO SCH ×2 (09:06→21:00)
[2019-07-28] MEDS: LORATADINE 10 MG TABLET NG SCH (09:07)
[2019-07-28] MEDS: TOPIRAMATE 25 MG TABLET NG SCH (09:07)
[2019-07-28] MEDS: FUROSEMIDE INJ/PF 20 MG/2 ML SDV IV SCH ×2 (09:07→21:46)
[2019-07-28] MEDS: LEVETIRACETAM 500 MG/NACL-ISO 500 MG/100 ML RTUPB IV SCH ×2 (09:08→21:48)
[2019-07-28] MEDS: INSULIN GLARGINE,HUM.REC.ANLOG 1,000 UNIT/10 ML VIAL SUBCUT SCH ×2 (10:11→21:46)
--- NOTE | 2019-07-28 10:33 | PDOC PROGRESS REPORT ---
Subjective Progress Note for:: 07/28/19 Subjective:: Beginning to awaken with lightening of sedation Reason For Visit: ARDS Physical Exam Vital Signs: Temp Pulse Resp BP Pulse Ox 98.6 F 92 14 137/84 H 100 07/28/19 08:00 07/28/19 08:00 07/28/19 08:00 07/28/19 08:00 07/28/19 08:00 Pulse Oximeter Continuous Start: 07/18/19 19:55 Freq: RTQ4 Status: Hold Protocol: Document 07/19/19 19:35 [facility] (Rec: 07/19/19 20:15 [facility] [email or web address]) Pulse Oximetry Assessment Oxygen Saturation (92-100) 92 Oxygen Flow Rate (L/min) 6 Oxygen Delivery Method Nasal Cannula Fraction of Inspired Oxygen (FIO2) 44 Equipment Usage Equipment in Use Continuous SpO2 Machine # [id number]-9 Intake & Output 07/27/19 07/28/19 07/29/19 06:59 06:59 06:59 Intake Total 3070 2370 161 Output Total 8730 2425 175 Balance 1095 -55 -14 Weight 52.7 kg 53.7 kg General appearance: PRESENT: no acute distress Head exam: PRESENT: atraumatic, normocephalic Eye exam: PRESENT: conjunctiva pink, EOMI, PERRLA. ABSENT: scleral icterus Ear exam: PRESENT: normal external ear exam Mouth exam: PRESENT: moist, tongue midline Additional comments: ETT and NG in place. Respiratory exam: PRESENT: clear to auscultation katlyn, unlabored Cardiovascular exam: PRESENT: RRR. ABSENT: diastolic murmur, rubs, systolic mu rmur Murmur grade: 2 Pulses: PRESENT: normal dorsalis pedis pul, +2 pedal pulses bilateral Vascular exam: PRESENT: normal capillary refill GI/Abdominal exam: PRESENT: normal bowel sounds, soft. ABSENT: distended, guarding, mass, organolmegaly, rebound, tenderness Rectal exam: PRESENT: deferred Musculoskeletal exam: PRESENT: normal inspection Neurological exam: PRESENT: altered Additional comments: Sedated Skin exam: PRESENT: dry, intact, warm. ABSENT: cyanosis, rash Results Laboratory Results: 07/28/19 04:12 07/28/19 04:12 07/28/19 07/28/19 04:12 04:12 WBC 11.3 H RBC 4.19 Hgb 11.0 L Hct 34.0 L MCV 81 MCH 26.2 L MCHC 32.3 RDW 16.9 H Plt Count 359 Seg Neutrophils % 88.5 H Sodium 136.4 L Potassium 4.8 Chloride 102 Carbon Dioxide 25 Anion Gap 9 BUN 18 Creatinine 0.64 Est GFR ( Amer) > 60 Glucose 335 H Calcium 8.9 Magnesium 2.0 Impressions: KUB X-Ray 07/26/19 00:00 IMPRESSION: The tip and side hole of the enteric tube project within the gastric lumen. Chest X-Ray 07/26/19 06:00 IMPRESSION: 1. Tubes and lines as above. 2. Stable asymmetric opacity in the left base and blunting of the left lateral costophrenic sulcus. Assessment & Plan - Diagnosis (1) ARDS (adult respiratory distress syndrome) Is this a current diagnosis for this admission?: Yes Plan: Resolved (2) Diabetes mellitus type 2 in obese Is this a current diagnosis for this admission?: Yes Plan: BG still in low 300s. Lantus increased. (3) Down syndrome Is this a current diagnosis for this admission?: Yes Plan: Chronic, lifelong. A definite communication issue. (4) Acute respiratory failure with hypoxia Is this a current diagnosis for this admission?: Yes Plan: CXR is clear, secretions minimal. Weaning in progress, may extubate today. - Time Time Spent with patient: 35 or more minutes Total Critical Time (Minutes): 35 Level of Care: ICU Medications reviewed and adjusted accordingly: Yes Anticipated discharge: SNF Within: Other - Inpatient Certification Based on my medical assessment, after consideration of the patient's comorbidities, presenting symptoms, or acuity I expect that the services needed warrant INPATIENT care.: Yes I certify that my determination is in accordance with my understanding of Medicare's requirements for reasonable and necessary INPATIENT services [42 CFR 412.3e].: Yes Medical Necessity: Failure to Improve With Outpatient Therapy, Need Close Monitoring Due to Risk of Patient Decompensation, Need For Continuous Telemetry Monitoring, Need for Nebulizer Therapy and Monitoring of Response, Risk of Complication if Not Cared For in Hospital
[2019-07-28] MEDS: NORMAL SALINE 1000 ML 1,000 ML IV PRN (18:00)
[2019-07-28] MEDS: ATORVASTATIN CALCIUM 20 MG TABLET NG SCH (21:00)
[2019-07-28] MEDS: ESCITALOPRAM OXALATE 10 MG TABLET NG SCH (21:00)
[2019-07-28] MEDS: TRAZODONE HCL 50 MG TABLET NG SCH (21:00)
[2019-07-28] MEDS ORDERED: INSULIN GLARGINE,HUM.REC.ANLOG 1,000 UNIT/10 ML VIAL SUBCUT SCH (22:00)
[2019-07-29] MEDS: INSULIN REG, HUMAN 100 UNIT/ML 3 ML VIAL (PYX) SUBCUT SCH ×5 (00:08→23:56)
[2019-07-29] MEDS: ALBUTEROL SULFATE 0.083% NEB 2.5 MG/3 ML AMPUL NEB SCH ×6 (00:34→19:18)
[2019-07-29 04:40] LABS: ABSOLUTE MONOCYTES (AUTO) 0.9 10^3/uL (0.1-1.4); ABSOLUTE NEUT (AUTO) 11.1 10^3/uL (1.7-8.2); BASOPHILS % (AUTO) 0.1 % (0-2); HEMATOCRIT 37.1 % (36.0-47.0); HEMOGLOBIN 12.2 g/dL (12.0-15.5); LYMPHOCYTES % (AUTO) 20.1 % (13-45); MEAN CORPUSCULAR HEMOGLOBIN 26.5 pg (27.0-33.4); MEAN CORPUSCULAR HGB CONC 32.8 g/dL (32.0-36.0); MEAN CORPUSCULAR VOLUME 81 fl (80-97); MONOCYTES % (AUTO) 5.9 % (3-13); PLATELET COUNT 414 10^3/uL (150-450); RED CELL DISTRIBUTION WIDTH 16.9 % (11.5-14.0); SEGMENTED NEUTROPHILS % (AUTO) 73.9 % (42-78); TOTAL CELLS COUNTED % (AUTO) 100 %
[2019-07-29 04:45] LABS: ANION GAP 10 (5-19); BLOOD UREA NITROGEN 19 mg/dL (7-20); CALCIUM 9.1 mg/dL (8.4-10.2); CARBON DIOXIDE 27 mmol/L (22-30); CHLORIDE 103 mmol/L (98-107); GLUCOSE 107 mg/dL (75-110)
[2019-07-29 04:48] LABS: POTASSIUM 3.8 mmol/L (3.6-5.0)
[2019-07-29] MEDS: MINERAL OIL/PETROLATUM,WHITE OPH OINT 3.5 GM OU SCH ×3 (05:13→21:34)
[2019-07-29] MEDS: HEPARIN SOD (PORCINE) 5,000 UNIT/ML 1 ML VIAL SUBCUT SCH ×3 (05:13→21:33)
[2019-07-29] MEDS: NORMAL SALINE 1000 ML 1,000 ML IV PRN ×2 (05:13→21:38)
[2019-07-29] MEDS ORDERED: VANCOMYCIN HCL 0 MG in DEXTROSE 5%-WATER 250 ML IV NR (09:15)
--- NOTE | 2019-07-29 10:03 | RADIOLOGY REPORT (SQ) ---
EXAM DESCRIPTION: CHEST SINGLE VIEW COMPLETED DATE/TIME: 07/29/2019 9:36 am REASON FOR STUDY: pneumonia COMPARISON: AP view of the chest from 07/26/2019. EXAM PARAMETERS: NUMBER OF VIEWS: One view. TECHNIQUE: Single frontal radiographic view of the chest acquired. RADIATION DOSE: NA LIMITATIONS: None. FINDINGS: LUNGS AND PLEURA: Decreased asymmetric opacity in the left base. There is no sizable pleu ral effusion or pneumothorax. MEDIASTINUM AND HILAR STRUCTURES: Stable mediastinal and hilar contours. HEART AND VASCULAR STRUCTURES: The cardiac silhouette and pulmonary vasculature within normal limits given the low inspiratory lung volumes. BONES: No acute findings. HARDWARE: The enteric and endotracheal tubes are no longer in place. OTHER: No other finding. IMPRESSION: Decreased asymmetric opacity in the left base consistent with a resolving pneumonia. TECHNICAL DOCUMENTATION: JOB ID: [id number] [employer]- All Rights Reserved Reading location - IP/workstation name: [email or web address]
[2019-07-29] MEDS: LEVETIRACETAM 500 MG/NACL-ISO 500 MG/100 ML RTUPB IV SCH ×2 (10:13→21:33)
[2019-07-29] MEDS: INSULIN GLARGINE,HUM.REC.ANLOG 1,000 UNIT/10 ML VIAL SUBCUT SCH ×2 (10:13→21:36)
[2019-07-29] MEDS: DEXAMETHASONE SOD PHOSPHATE INJ 4 MG/1 ML VIAL IV SCH ×2 (10:13→17:45)
[2019-07-29] MEDS: PIPERACILLIN SODIUM/TAZOBACTAM 3.375 GM in NORMAL SALINE 100 ML IV SCH ×3 (10:14→23:56)
[2019-07-29] MEDS ORDERED: ETOMIDATE INJ/PF 20 MG/10 ML SDV IV ONE (10:20)
[2019-07-29] MEDS ORDERED: PROPOFOL 1,000 MG/100 ML INFUS..BTL IV ONE (10:21)
[2019-07-29] MEDS: PROPOFOL 1,000 MG/100 ML INFUS..BTL IV PRN ×2 (10:35→17:43)
--- NOTE | 2019-07-29 10:47 | Progress Note ---
Provider Note Provider Note: Procedure Note Procedure: endotracheal intubation Indication: acute respiratory failure Technique: Pt was pre-oxygenated via BVM. She was medicated with etomidate 20 mg IV. She was intubated using the Glidescope with a size 7.5 ET tube. Tube placement was confirmed with good color change on the ETCO2 detector. Pt t olerated the procedure well. Post-intubation CXR pending.
--- NOTE | 2019-07-29 10:58 | PDOC PROGRESS REPORT ---
Subjective Progress Note for:: 07/29/19 Subjective:: Critical Care Progress Note. Pt became hypoxic while on bipap and I reintubated her. Reason For Visit: ARDS Physical Exam Vital Signs: Temp Pulse Resp BP Pulse Ox 98.7 F 119 H 28 H 159/111 H 94 07/29/19 08:00 07/29/19 10:00 07/29/19 10:00 07/29/19 10:00 07/29/19 10:00 Pulse Oximeter Continuous Start: 07/18/19 19:55 Freq: RTQ4 Status: Complete Protocol: Document 07/19/19 19:35 [facility] (Rec: 07/19/19 20:15 [facility] [id number]) Pulse Oximetry Assessment Oxygen Saturation (92-100) 92 Oxygen Flow Rate (L/min) 6 Oxygen Delivery Method Nasal Cannula Fraction of Inspired Oxygen (FIO2) 44 Equipment Usage Equipment in Use Continuous SpO2 Machine # N-9 Intake & Output 07/28/19 07/29/19 07/30/19 06:59 06:59 06:59 Intake Total 2370 2288 Output Total 2427 2850 40 Balance -55 -562 -40 Weight 53.7 kg 53.1 kg General appearance: PRESENT: other - respiratory distress Head exam: PRESENT: atraumatic, normocephalic Respiratory exam: PRESENT: decreased breath sounds, tachypnea Cardiovascular exam: PRESENT: tachycardia Murmur grade: 2 GI/Abdominal exam: PRESENT: soft Gentrourinary exam: PRESENT: indwelling catheter Results Laboratory Results: 07/29/19 04:02 07/29/19 04:02 07/29/19 07/29/19 04:02 04:02 WBC 15.0 H RBC 4.60 Hgb 12.2 Hct 37.1 MCV 81 MCH 26.5 L MCHC 32.8 RDW 16.9 H Plt Count 414 Seg Neutrophils % 73.9 Sodium 140.4 Potassium 3.8 D Chloride 103 Carbon Dioxide 27 Anion Gap 10 BUN 19 Creatinine 0.73 Est GFR ( Amer) > 60 Glucose 107 Calcium 9.1 Magnesium 1.9 07/25/19 20:00 Sputum Gram Stain - Final 07/25/19 20:00 Sputum Sputum Culture - Final REDUCED NORMAL DEIDRA Impressions: KUB X-Ray 07/26/19 00:00 IMPRESSION: The tip and side hole of the enteric tube project within the gastric lumen. Chest X-Ray 07/29/19 00:00 IMPRESSION: Decreased asymmetric opacity in the left base consistent with a resolving pneumonia. Assessment & Plan - Diagnosis (1) Acute respiratory failure with hypoxia Is this a current diagnosis for this admission?: Yes (2) ARDS (adult respiratory distress syndrome) Is this a current diagnosis for this admission?: Yes (3) Aspiration pneumonia due to vomitus Qualifiers: Laterality: bilateral Lung location: unspecified part of lung Qualified Code(s): J69.0 - Pneumonitis due to inhalation of food and vomit Is this a current diagnosis for this admission?: Yes (4) Down syndrome Is this a current diagnosis for this admission?: Yes (5) History of epilepsy Is this a current diagnosis for this admission?: Yes (6) Diabetes mellitus type 2 in obese Is this a current diagnosis for this admission?: Yes - Time Time Spent with patient: 35 or more minutes Level of Care: ICU Anticipated discharge: Other Within: Other Provider Note Provider Note: Assessment: Critically ill 29 yo woman with acute respiratory failure, ARDS, aspiration PNA, Down Syndrome, epilepsy, DM Plan: 1. Respiratory: acute respiratory failure. I reintubated the pt today. This is her third intubation this hospitalization. Pt will need trach. Will consult surgery tmw. Post-intubation CXR and ABG pending 2. Pulmonary: ARDS, aspiration PNA. Will resume ATBX. Will start vanc and zosyn. Will repeat sputum culture. Will continue steroids 3. CV: BP acceptable 4. Neuro: epilepsy. Continue seizure meds 5. Endocrine: DM. Blood sugars low this am. Hold lantus 6. Nutrition: NGT tube, resume tube feeds 7. Prophylaxis: sq heparin 8. Sister at bedside. Updated on pt condition and plan of care 9. Dispositon: pt will need trach and PEG and then placement in LTAC vs SNF. Critical care time= 40 min, excluding procedures
[2019-07-29] MEDS: FAMOTIDINE INJ/PF 20 MG/2 ML SDV IV SCH ×2 (11:34→21:32)
[2019-07-29] MEDS: VANCOMYCIN HCL 500 MG in DEXTROSE 5%-WATER 100 ML IV SCH ×2 (11:34→21:34)
--- NOTE | 2019-07-29 11:53 | RADIOLOGY REPORT (SQ) ---
EXAM DESCRIPTION: CHEST SINGLE VIEW COMPLETED DATE/TIME: 07/29/2019 11:23 am REASON FOR STUDY: acute respiratory failure, s/p intubation COMPARISON: AP view of the chest from 07/29/2019 at 0927 hours. EXAM PARAMETERS: NUMBER OF VIEWS: One view. TECHNIQUE: Single frontal radiographic view of the chest acquired. RADIATION DOSE: NA LIMITATIONS: None. FINDINGS: LUNGS AND PLEURA: Low inspiratory lung volumes with subtle asymmetric opacity in the left base that is unchanged from the prior radiograph. MEDIASTINUM AND HILAR STRUCTURES: Stable mediastinal and hilar contours. HEART AND VASCULAR STRUCTURES: The cardiac silhouette and pulmonary vasculature within normal limits given the low inspiratory lung volumes. BONES: No acute findings. HARDWARE: The tip of the endotracheal tube projects 1 cm above the martha. The tip and side hole of the enteric tube project within the gastric lumen. OTHER: No other finding. IMPRESSION: 1. Tubes and lines as above. 2. Low inspiratory lung volumes with an asymmetric opacity in the left base that is unchanged from th e radiograph at 0927 hours. TECHNICAL DOCUMENTATION: JOB ID: [id number] [employer]- All Rights Reserved Reading location - IP/workstation name: [email or web address]
[2019-07-29 13:14] LABS: ANION GAP 12 (5-19); BLOOD UREA NITROGEN 20 mg/dL (7-20); CALCIUM 8.8 mg/dL (8.4-10.2); CARBON DIOXIDE 24 mmol/L (22-30); CHLORIDE 105 mmol/L (98-107); GLUCOSE 93 mg/dL (75-110); POTASSIUM 3.3 mmol/L (3.6-5.0)
--- NOTE | 2019-07-29 14:32 | RADIOLOGY REPORT (SQ) ---
EXAM DESCRIPTION: CT CHEST WITHOUT COMPLETED DATE/TIME: 07/29/2019 2:14 pm REASON FOR STUDY: pneumonia, respiratory failure K02.9 DENTAL CARIES, UNSPECIFIED COMPARISON: None. TECHNIQUE: CT scan performed of the chest without intravenous contrast. Images reviewed with lung, soft tissue and bone windows. Reconstructed coronal and sagittal MPR images reviewed. All images st ored on PACS. All CT scanners at this facility use dose modulation, iterative reconstruction, and/or weight based d osing when appropriate to reduce radiation dose to as low as reasonably achievable (ALARA). [facility]: Dose Right [facility]: CareDose [facility]: Dose Right [facility]: Teradose 4D [facility]: [employer] RADIATION DOSE: mGy. LIMITATIONS: No technical limitations. FINDINGS: LUNGS AND PLEURA: There are ground-glass infiltrates in the left upper lobe and lower lobe . There is focal opacification in the posterior aspect of the left lower lobe. Ill-defined ground-g lass infiltrates in the right lower lobe. HILAR AND MEDIASTINAL STRUCTURES: No identified masses or abnormal nodes. No obvious aneurysm. HEART AND VASCULAR STRUCTURES: No aneurysm. No pericardial effusion. UPPER ABDOMEN: No significant findings. Limited exam. THYROID AND OTHER SOFT TISSUES: No masses. No adenopathy. BONES: No significant finding. HARDWARE: An endotracheal is present. The tip of the endotracheal tube is less than 1 cm from the ca rico. An NG tube is present. OTHER: No other significant findings. IMPRESSION: 1. Ground-glass infiltrates more prominent on the left, suggesting multicentric infecti ous/inflammatory process. 2. Atelectatic changes in the left base. 3. The endotracheal tube is positioned quite low, being just above the martha. TECHNICAL DOCUMENTATION: JOB ID: [id number] Quality ID # [id number]: Final reports with documentation of one or more dose reduction techniques (e.g., Au tomated exposure control, adjustment of the mA and/or kV according to patient size, use of iterative reconstruction technique) 2010 [employer]- All Rights Reserved Reading location - IP/workstation name: [email or web address]
[2019-07-30] MEDS: ALBUTEROL SULFATE 0.083% NEB 2.5 MG/3 ML AMPUL NEB SCH ×6 (00:51→20:34)
[2019-07-30] MEDS: PROPOFOL 1,000 MG/100 ML INFUS..BTL IV PRN ×3 (02:24→21:41)
[2019-07-30 04:25] LABS: ABSOLUTE LYMPHOCYTES (AUTO) 1.7 10^3/uL (0.5-4.7); ABSOLUTE MONOCYTES (AUTO) 0.5 10^3/uL (0.1-1.4); ABSOLUTE NEUT (AUTO) 9.4 10^3/uL (1.7-8.2); BASOPHILS % (AUTO) 0.2 % (0-2); LYMPHOCYTES % (AUTO) 14.8 % (13-45); MEAN CORPUSCULAR HEMOGLOBIN 26.5 pg (27.0-33.4); MEAN CORPUSCULAR HGB CONC 32.3 g/dL (32.0-36.0); MEAN CORPUSCULAR VOLUME 82 fl (80-97); MONOCYTES % (AUTO) 4.1 % (3-13); PLATELET COUNT 376 10^3/uL (150-450); RED BLOOD COUNT 3.67 10^6/uL (3.72-5.28); RED CELL DISTRIBUTION WIDTH 17.4 % (11.5-14.0); SEGMENTED NEUTROPHILS % (AUTO) 80.9 % (42-78); TOTAL CELLS COUNTED % (AUTO) 100 %; WHITE BLOOD COUNT 11.6 10^3/uL (4.0-10.5)
[2019-07-30 04:53] LABS: HEMOGLOBIN 9.7 g/dL (12.0-15.5)
[2019-07-30] MEDS: MINERAL OIL/PETROLATUM,WHITE OPH OINT 3.5 GM OU SCH ×3 (05:23→21:32)
[2019-07-30] MEDS: HEPARIN SOD (PORCINE) 5,000 UNIT/ML 1 ML VIAL SUBCUT SCH ×3 (05:43→21:32)
[2019-07-30] MEDS: PIPERACILLIN SODIUM/TAZOBACTAM 3.375 GM in NORMAL SALINE 100 ML IV SCH ×3 (05:43→17:38)
[2019-07-30] MEDS: INSULIN REG, HUMAN 100 UNIT/ML 3 ML VIAL (PYX) SUBCUT SCH ×3 (05:45→17:38)
--- NOTE | 2019-07-30 08:52 | RADIOLOGY REPORT (SQ) ---
EXAM DESCRIPTION: CHEST SINGLE VIEW COMPLETED DATE/TIME: 07/30/2019 6:13 am REASON FOR STUDY: respiratory failure COMPARISON: None. EXAM PARAMETERS: NUMBER OF VIEWS: One view. TECHNIQUE: Single frontal radiographic view of the chest acquired. RADIATION DOSE: NA LIMITATIONS: None. FINDINGS: LUNGS AND PLEURA: Low inspiratory lung volumes with a subtle asymmetric opacity in the lef t base that is unchanged from the prior radiograph. The left lateral costophrenic sulcus is blunted. There is no pneumothorax. MEDIASTINUM AND HILAR STRUCTURES: Stable mediastinal and hilar contours. HEART AND VASCULAR STRUCTURES: Stable cardiac silhouette and pulmonary vasculature. BONES: No acute findings. HARDWARE: The tip of the enteric tube projects 1.3 cm above the martha. The tip and side hole of the enteric tube projecting within the gastric lumen. OTHER: No other finding. IMPRESSION: 1. Tubes and lines as above. 2. Subtle asymmetric opacity in the left base and blunting of the left lateral costophrenic sulcus. TECHNICAL DOCUMENTATION: JOB ID: [id number] [employer]- All Rights Reserved Reading location - IP/workstation name: [email or web address]
[2019-07-30 09:02] LABS: ARTERIAL BLOOD BASE EXCESS -2.1 mmol/L; ARTERIAL BLOOD H2CO3 1.02 mmol/L (1.05-1.35); ARTERIAL BLOOD HCO3 21.8 mmol/L (20-24); ARTERIAL BLOOD O2 SATURATION 95.4 % (94-98); ARTERIAL BLOOD PO2 74.5 mmHg (80-100); ARTERIAL BLOOD TOTAL CO2 22.8 mmol/L (21-25)
[2019-07-30 09:04] LABS: ARTERIAL BLOOD PH 7.42 (7.35-7.45)
--- NOTE | 2019-07-30 09:22 | PDOC PROGRESS REPORT ---
Subjective Progress Note for:: 07/30/19 Subjective:: Critical Care Progress Note Pt was re-intubated yesterday. No acute overnight events. Reason For Visit: ARDS Physical Exam Vital Signs: Temp Pulse Resp BP Pulse Ox 99.3 F 106 H 18 111/77 98 07/30/19 08:00 07/30/19 08:18 07/30/19 08:18 07/30/19 08:00 07/30/19 08:18 Pulse Oximeter Continuous Start: 07/18/19 19:55 Freq: RTQ4 Status: Complete Protocol: Document 07/19/19 19:35 [facility] (Rec: 07/19/19 20:15 [facility] [id number]) Pulse Oximetry Assessment Oxygen Saturation (92-100) 92 Oxygen Flow Rate (L/min) 6 Oxygen Delivery Method Nasal Cannula Fraction of Inspired Oxygen (FIO2) 44 Equipment Usage Equipment in Use Continuous SpO2 Machine # [id number]-9 Intake & Output 07/29/19 07/30/19 07/31/19 06:59 06:59 06:59 Intake Total 2288 1676 79 Output Total 2850 585 0 Balance -562 1091 79 Weight 53.1 kg 53.6 kg General appearance: PRESENT: no acute distress, other - intubated Respiratory exam: PRESENT: decreased breath sounds, unlabored Cardiovascular exam: PRESENT: RRR Murmur grade: 2 GI/Abdominal exam: PRESENT: soft Gentrourinary exam: PRESENT: indwelling catheter Extremities exam: PRESENT: other - no edema Results Laboratory Results: 07/30/19 04:10 07/29/19 12:27 07/29/19 07/30/19 07/30/19 12:27 04:10 04:10 WBC 11.6 H RBC 3.67 L Hgb 9.7 L D Hct 30.0 L MCV 82 MCH 26.5 L MCHC 32.3 RDW 17.4 H Plt Count 376 Seg Neutrophils % 80.9 H Carbonic Acid HCO3/H2CO3 Ratio ABG pH ABG pCO2 ABG pO2 ABG HCO3 ABG O2 Saturation ABG Base Excess Sodium 141.2 Potassium 3.3 L Chloride 105 Carbon Dioxide 24 Anion Gap 12 BUN 20 Creatinine 0.67 Est GFR ( Amer) > 60 Glucose 93 Calcium 8.8 Magnesium 2.1 07/30/19 08:45 WBC RBC Hgb Hct MCV MCH MCHC RDW Plt Count Seg Neutrophils % Carbonic Acid 1.02 L HCO3/H2CO3 Ratio 21:1 ABG pH 7.42 ABG pCO2 34.0 L ABG pO2 74.5 L ABG HCO3 21.8 ABG O2 Saturation 95.4 ABG Base Excess -2.1 Sodium Potassium Chloride Carbon Dioxide Anion Gap BUN Creatinine Est GFR ( Amer) Glucose Calcium Magnesium 07/25/19 20:00 Sputum Gram Stain - Final 07/25/19 20:00 Sputum Sputum Culture - Final REDUCED NORMAL DEIDRA Impressions: KUB X-Ray 07/26/19 00:00 IMPRESSION: The tip and side hole of the enteric tube project within the gastric lumen. Chest CT 07/29/19 00:00 IMPRESSION: 1. Ground-glass infiltrates more prominent on the left, suggesting multicentric infectious/inflammatory process. 2. Atelectatic changes in the left base. 3. The endotracheal tube is positioned quite low, being just above the martha. Chest X-Ray 07/30/19 06:00 IMPRESSION: 1. Tubes and lines as above. 2. Subtle asymmetric opacity in the left base and blunting of the left lateral costophrenic sulcus. Assessment & Plan - Diagnosis (1) Acute respiratory failure with hypoxia Is this a current diagnosis for this admission?: Yes (2) ARDS (adult respiratory distress syndrome) Is this a current diagnosis for this admission?: Yes (3) Aspiration pneumonia due to vomitus Qualifiers: Laterality: bilateral Lung location: unspecified part of lung Qualified Code(s): J69.0 - Pneumonitis due to inhalation of food and vomit Is this a current diagnosis for this admission?: Yes (4) Down syndrome Is this a current diagnosis for this admission?: Yes (5) History of epilepsy Is this a current diagnosis for this admission?: Yes (6) Diabetes mellitus type 2 in obese Is this a current diagnosis for this admission?: Yes - Time Time Spent with patient: 35 or more minutes Total Critical Time (Minutes): 40 Level of Care: ICU Provider Note Provider Note: Assessment: Critically ill 29 yo woman with acute respiratory failure, ARDS, aspiration PNA, Down Syndrome, epilepsy, DM Plan: 1. Respiratory: acute respiratory failure. Pt reintubated on 07/29.This is her third intubation this hospitalization. Pt needs trach. Spoke with family and they are refusing trach. 2. Pulmonary: ARDS, resolved. Aspiration PNA. Day 2 vanc and zosyn. Wean steroids. CT of chest done yesterday. 3. CV: BP acceptable 4. Neuro: epilepsy. Continue seizure meds 5. Endocrine: DM. Accuchecks, SSI 6. Nutrition: NGT tube, resume tube feeds 7. Prophylaxis: sq heparin 8. Ethics. Pt needs trach since this in the third time she has been intubated since her ICU stay. Family is refusing. If pt is unable to be extubated again in the next several days, will need to consider a palliative care consult to help family clarify goals of care. Critical care time= 40 min, excluding procedures
[2019-07-30 09:40] LABS: ARTERIAL BLOOD FIO2 21%
[2019-07-30] MEDS: METHYLPREDNISOLONE INJ 40 MG/1 ML SDV IV SCH ×2 (10:16→21:32)
[2019-07-30] MEDS: FAMOTIDINE INJ/PF 20 MG/2 ML SDV IV SCH ×2 (10:16→21:32)
[2019-07-30] MEDS: VANCOMYCIN HCL 500 MG in DEXTROSE 5%-WATER 100 ML IV SCH ×2 (10:16→22:44)
[2019-07-30] MEDS: LEVETIRACETAM 500 MG/NACL-ISO 500 MG/100 ML RTUPB IV SCH ×2 (10:17→21:29)
[2019-07-30 10:29] LABS: ANION GAP 7 (5-19); BLOOD UREA NITROGEN 16 mg/dL (7-20); CARBON DIOXIDE 22 mmol/L (22-30); CHLORIDE 112 mmol/L (98-107); GLUCOSE 124 mg/dL (75-110); POTASSIUM 3.7 mmol/L (3.6-5.0)
[2019-07-30] MEDS: NORMAL SALINE 1000 ML 1,000 ML IV PRN (13:35)
[2019-07-30 22:16] LABS: VANCOMYCIN,TROUGH 8.5 ug/mL (5.0-20.0)
[2019-07-31] MEDS: INSULIN REG, HUMAN 100 UNIT/ML 3 ML VIAL (PYX) SUBCUT SCH ×5 (00:03→23:35)
[2019-07-31] MEDS: PIPERACILLIN SODIUM/TAZOBACTAM 3.375 GM in NORMAL SALINE 100 ML IV SCH ×5 (00:04→23:33)
[2019-07-31] MEDS: ALBUTEROL SULFATE 0.083% NEB 2.5 MG/3 ML AMPUL NEB SCH ×7 (00:24→23:46)
[2019-07-31 04:32] LABS: ABSOLUTE MONOCYTES (AUTO) 0.3 10^3/uL (0.1-1.4); ABSOLUTE NEUT (AUTO) 7.6 10^3/uL (1.7-8.2); BASOPHILS % (AUTO) 0.1 % (0-2); HEMATOCRIT 26.8 % (36.0-47.0); LYMPHOCYTES % (AUTO) 11.7 % (13-45); MEAN CORPUSCULAR HEMOGLOBIN 27.3 pg (27.0-33.4); MEAN CORPUSCULAR HGB CONC 33.5 g/dL (32.0-36.0); MEAN CORPUSCULAR VOLUME 82 fl (80-97); MONOCYTES % (AUTO) 3.2 % (3-13); PLATELET COUNT 323 10^3/uL (150-450); RED BLOOD COUNT 3.29 10^6/uL (3.72-5.28); RED CELL DISTRIBUTION WIDTH 17.8 % (11.5-14.0); TOTAL CELLS COUNTED % (AUTO) 100 %; WHITE BLOOD COUNT 8.9 10^3/uL (4.0-10.5)
[2019-07-31] MEDS: MINERAL OIL/PETROLATUM,WHITE OPH OINT 3.5 GM OU SCH ×3 (05:24→21:49)
[2019-07-31] MEDS: HEPARIN SOD (PORCINE) 5,000 UNIT/ML 1 ML VIAL SUBCUT SCH ×3 (06:08→21:17)
[2019-07-31] MEDS: PROPOFOL 1,000 MG/100 ML INFUS..BTL IV PRN ×3 (06:12→21:32)
[2019-07-31] MEDS: NORMAL SALINE 1000 ML 1,000 ML IV PRN (06:22)
[2019-07-31 07:56] LABS: ANION GAP 8 (5-19); BLOOD UREA NITROGEN 10 mg/dL (7-20); CALCIUM 8.3 mg/dL (8.4-10.2); CARBON DIOXIDE 20 mmol/L (22-30); CHLORIDE 114 mmol/L (98-107); GLUCOSE 192 mg/dL (75-110); POTASSIUM 4.2 mmol/L (3.6-5.0)
--- NOTE | 2019-07-31 08:44 | RADIOLOGY REPORT (SQ) ---
EXAM DESCRIPTION: CHEST SINGLE VIEW COMPLETED DATE/TIME: 07/31/2019 5:59 am REASON FOR STUDY: respiratory failure COMPARISON: 07/30/2019 EXAM PARAMETERS: NUMBER OF VIEWS: One view. TECHNIQUE: Single frontal radiographic view of the chest acquired. RADIATION DOSE: NA LIMITATIONS: None. FINDINGS: LUNGS AND PLEURA: Diminished lung volumes. No focal consolidation, pleural effusion or pn eumothorax. MEDIASTINUM AND HILAR STRUCTURES: No masses. Contour normal. HEART AND VASCULAR STRUCTURES: Enlarged, stable. Normal vasculature. BONES: No acute findings. HARDWARE: Endotracheal tube low lying and overlying the left mainstem bronchus. Enteric tube tip ove rlies gastric fundus. OTHER: No other significant finding. IMPRESSION: Endotracheal tube tip low-lying and overlying the left main stem bronchus. Recommend re traction by 2-3 cm. Findings discussed with Yfn MONGE at 0836 hours on 07/31/2019. TECHNICAL DOCUMENTATION: JOB ID: [id number] [employer]- All Rights Reserved Reading location - IP/workstation name: [email or web address]
--- NOTE | 2019-07-31 09:12 | PDOC PROGRESS REPORT ---
Subjective Progress Note for:: 07/31/19 Subjective:: Critical Care Progress Note. Pt remains intubated. No acute overnight events. Reason For Visit: ARDS Physical Exam Vital Signs: Temp Pulse Resp BP Pulse Ox 98.8 F 90 16 130/81 H 99 07/31/19 08:00 07/31/19 08:26 07/31/19 08:26 07/31/19 08:00 07/31/19 08:26 Pulse Oximeter Continuous Start: 07/18/19 19:55 Freq: RTQ4 Status: Complete Protocol: Document 07/19/19 19:35 [facility] (Rec: 07/19/19 20:15 [facility] [id number]) Pulse Oximetry Assessment Oxygen Saturation (92-100) 92 Oxygen Flow Rate (L/min) 6 Oxygen Delivery Method Nasal Cannula Fraction of Inspired Oxygen (FIO2) 44 Equipment Usage Equipment in Use Continuous SpO2 Machine # N-9 Intake & Output 07/30/19 07/31/19 08/01/19 06:59 06:59 06:59 Intake Total 1876 3089 Output Total 585 1100 60 Balance 1291 1988 Weight 53.6 kg 55 kg General appearance: PRESENT: no acute distress, well-nourished, other - intubated Respiratory exam: PRESENT: clear to auscultation katlyn, unlabored Cardiovascular exam: PRESENT: RRR Murmur grade: 2 GI/Abdominal exam: PRESENT: soft Gentrourinary exam: PRESENT: indwelling catheter Extremities exam: PRESENT: other - trace edema Results Laboratory Results: 07/31/19 04:20 07/31/19 04:20 07/30/19 07/30/19 07/31/19 04:10 08:45 04:20 WBC 8.9 RBC 3.29 L Hgb 9.0 L Hct 26.8 L MCV 82 MCH 27.3 MCHC 33.5 RDW 17.8 H Plt Count 323 Seg Neutrophils % 85.0 H FiO2 21% Sodium 141.1 Potassium 3.7 Chloride 112 H Carbon Dioxide 22 Anion Gap 7 BUN 16 Creatinine 0.69 Est GFR ( Amer) > 60 Glucose 124 H Calcium 8.0 L Magnesium 07/31/19 07/31/19 04:20 04:20 WBC RBC Hgb Hct MCV MCH MCHC RDW Plt Count Seg Neutrophils % FiO2 Sodium 142.0 Potassium 4.2 Chloride 114 H Carbon Dioxide 20 L Anion Gap 8 BUN 10 Creatinine 0.62 Est GFR ( Amer) > 60 Glucose 192 H Calcium 8.3 L Magnesium 2.1 Impressions: KUB X-Ray 07/26/19 00:00 IMPRESSION: The tip and side hole of the enteric tube project within the gastric lumen. Chest CT 07/29/19 00:00 IMPRESSION: 1. Ground-glass infiltrates more prominent on the left, suggesting multicentric infectious/inflammatory process. 2. Atelectatic changes in the left base. 3. The endotracheal tube is positioned quite low, being just above the martha. Chest X-Ray 07/31/19 06:00 IMPRESSION: Endotracheal tube tip low-lying and overlying the left main stem bronchus. Recommend retraction by 2-3 cm. Findings discussed with Yfn MONGE at 0836 hours on 07/31/2019. Assessment & Plan - Diagnosis (1) Acute respiratory failure with hypoxia Is this a current diagnosis for this admission?: Yes (2) ARDS (adult respiratory distress syndrome) Is this a current diagnosis for this admission?: Yes (3) Aspiration pneumonia due to vomitus Qualifiers: Laterality: bilateral Lung location: unspecified part of lung Qualified Code(s): J69.0 - Pneumonitis due to inhalation of food and vomit Is this a current diagnosis for this admission?: Yes (4) Down syndrome Is this a current diagnosis for this admission?: Yes (5) History of epilepsy Is this a current diagnosis for this admission?: Yes (6) Diabetes mellitus type 2 in obese Is this a current diagnosis for this admission?: Yes - Time Time Spent with patient: 35 or more minutes Total Critical Time (Minutes): 35 Level of Care: ICU Provider Note Provider Note: Assessment: Critically ill 29 yo woman with acute respiratory failure, ARDS, aspiration PNA, Down Syndrome, epilepsy, DM Plan: 1. Respiratory: acute respiratory failure. Pt reintubated on 07/29 vent day 3.This is her third intubation this hospitalization. Pt needs trach. Spoke with family and they are refusing trach. Will try pt on PSV. 2. Pulmonary: ARDS, resolved. Aspiration PNA. Day 3 vanc and zosyn. Wean steroids. 3. CV: HTN. Will start lasix 40 mg IV BID 4. Neuro: epilepsy. Continue seizure meds 5. Endocrine: DM. Accuchecks, SSI. Weaning steroids 6. Nutrition: TF 7. Prophylaxis: sq heparin 8. Ethics. Pt needs trach since this in the third time she has been intubated since her ICU stay. Family is refusing. If pt is unable to be extubated again in the next several days, will need to consider a palliative care consult to help family clarify goals of care. Critical care time= 35 min, excluding procedures
[2019-07-31] MEDS ORDERED: METHYLPREDNISOLONE INJ 40 MG/1 ML SDV IV SCH (10:00)
--- NOTE | 2019-07-31 10:03 | RADIOLOGY REPORT (SQ) ---
EXAM DESCRIPTION: CHEST SINGLE VIEW COMPLETED DATE/TIME: 07/31/2019 9:42 am REASON FOR STUDY: ETT placement COMPARISON: Same day radiograph EXAM PARAMETERS: NUMBER OF VIEWS: One view. TECHNIQUE: Single frontal radiographic view of the chest acquired. RADIATION DOSE: NA LIMITATIONS: None. FINDINGS: LUNGS AND PLEURA: No opacities, masses or pneumothorax. No pleural effusion. MEDIASTINUM AND HILAR STRUCTURES: Stable. HEART AND VASCULAR STRUCTURES: Stable. BONES: No acute findings. HARDWARE: Retraction of the endotracheal tube tip with tip canal 1.1 cm above the martha. Enteric tu be tip overlies gastric fundus. OTHER: No other significant finding. IMPRESSION: Retraction of the endotracheal tube with tip now 1.1 cm above the martha. TECHNICAL DOCUMENTATION: JOB ID: [id number] [employer]- All Rights Reserved Reading location - IP/workstation name: [email or web address]
[2019-07-31] MEDS: LORATADINE 10 MG TABLET NG SCH (10:49)
[2019-07-31] MEDS: TOPIRAMATE 25 MG TABLET NG SCH (10:49)
[2019-07-31] MEDS: AMINO AC/PROTEIN HYDR/WHEY PRO 11 GM/45 ML PKT NG SCH (10:50)
[2019-07-31] MEDS: FUROSEMIDE INJ/PF 40 MG/4 ML SDV IV SCH ×2 (10:50→21:18)
[2019-07-31] MEDS: MULTIVITAMIN ORAL LIQUID 60 ML NG SCH (10:51)
[2019-07-31] MEDS: LEVETIRACETAM 500 MG/NACL-ISO 500 MG/100 ML RTUPB IV SCH ×2 (10:51→21:17)
[2019-07-31] MEDS: VANCOMYCIN HCL 1,000 MG in DEXTROSE 5%-WATER 250 ML IV SCH ×2 (10:51→21:51)
[2019-07-31] MEDS: FAMOTIDINE 20 MG TABLET NG SCH ×2 (11:02→21:17)
[2019-07-31] MEDS ORDERED: FENTANYL CITRATE INJ/PF 100 MCG/2 ML AMPUL ONE (13:27)
[2019-07-31] MEDS ORDERED: METOPROLOL TARTRATE PF/INJ 5 MG/5 ML SDV IV ONE ×2 (15:26→16:00)
--- NOTE | 2019-07-31 16:35 | Progress Note ---
Provider Note Provider Note: Spoke with pt's sister. SHe has reiterated that the family does not want pt to have a trach. She does not want her reintubated once she is extubated. SHe has requested that pt be made DNR and is agreeable to a palliative care consult.
[2019-07-31] MEDS: TRAZODONE HCL 50 MG TABLET NG SCH (21:17)
[2019-07-31] MEDS: ATORVASTATIN CALCIUM 20 MG TABLET NG SCH (21:17)
[2019-07-31] MEDS: ESCITALOPRAM OXALATE 10 MG TABLET NG SCH (21:17)
[2019-08-01] MEDS: ALBUTEROL SULFATE 0.083% NEB 2.5 MG/3 ML AMPUL NEB SCH ×5 (03:50→20:44)
[2019-08-01 04:48] LABS: ABSOLUTE EOSINOPHILS # (AUTO) 0.1 10^3/uL (0.0-0.6); ABSOLUTE LYMPHOCYTES (AUTO) 3.9 10^3/uL (0.5-4.7); ABSOLUTE MONOCYTES (AUTO) 0.9 10^3/uL (0.1-1.4); ABSOLUTE NEUT (AUTO) 5.8 10^3/uL (1.7-8.2); BASOPHILS % (AUTO) 0.4 % (0-2); EOSINOPHILS % (AUTO) 0.7 % (0-6); HEMATOCRIT 31.6 % (36.0-47.0); HEMOGLOBIN 10.4 g/dL (12.0-15.5); MEAN CORPUSCULAR HEMOGLOBIN 26.6 pg (27.0-33.4); MEAN CORPUSCULAR HGB CONC 32.9 g/dL (32.0-36.0); MEAN CORPUSCULAR VOLUME 81 fl (80-97); MONOCYTES % (AUTO) 8.6 % (3-13); PLATELET COUNT 392 10^3/uL (150-450); RED BLOOD COUNT 3.91 10^6/uL (3.72-5.28); RED CELL DISTRIBUTION WIDTH 17.6 % (11.5-14.0); SEGMENTED NEUTROPHILS % (AUTO) 54.3 % (42-78); TOTAL CELLS COUNTED % (AUTO) 100 %; WHITE BLOOD COUNT 10.8 10^3/uL (4.0-10.5)
[2019-08-01] MEDS: PROPOFOL 1,000 MG/100 ML INFUS..BTL IV PRN ×3 (05:06→22:04)
[2019-08-01] MEDS: INSULIN REG, HUMAN 100 UNIT/ML 3 ML VIAL (PYX) SUBCUT SCH ×5 (05:16→23:08)
[2019-08-01] MEDS: HEPARIN SOD (PORCINE) 5,000 UNIT/ML 1 ML VIAL SUBCUT SCH ×3 (05:16→21:21)
[2019-08-01] MEDS: PIPERACILLIN SODIUM/TAZOBACTAM 3.375 GM in NORMAL SALINE 100 ML IV SCH ×4 (05:16→23:00)
[2019-08-01] MEDS: MINERAL OIL/PETROLATUM,WHITE OPH OINT 3.5 GM OU SCH ×3 (05:16→21:18)
[2019-08-01 06:38] LABS: ANION GAP 11 (5-19); BLOOD UREA NITROGEN 13 mg/dL (7-20); CARBON DIOXIDE 29 mmol/L (22-30); CHLORIDE 108 mmol/L (98-107); GLUCOSE 121 mg/dL (75-110)
[2019-08-01 06:59] LABS: POTASSIUM 2.6 mmol/L (3.6-5.0)
[2019-08-01] MEDS: POTASSIUM CHLORIDE 20 MEQ PACKET NG SCH ×3 (07:51→11:25)
--- NOTE | 2019-08-01 09:07 | RADIOLOGY REPORT (SQ) ---
EXAM DESCRIPTION: CHEST SINGLE VIEW COMPLETED DATE/TIME: 08/01/2019 6:06 am REASON FOR STUDY: respiratory failure COMPARISON: 07/31/2019 NUMBER OF VIEWS: One view. TECHNIQUE: Single frontal radiographic image of the chest acquired. LIMITATIONS: None. FINDINGS: LUNGS AND PLEURA: Stable appearance. MEDIASTINUM AND HEART: Stable heart size and mediastinal structures. SUPPORT DEVICES: Appropriate location without change. BONY STRUCTURES: No acute findings. HARDWARE: None. OTHER: No other significant finding. IMPRESSION: STABLE APPEARANCE OF THE CHEST. SUPPORT DEVICES UNCHANGED. Reading location - IP/workstation name: [email or web address]
--- NOTE | 2019-08-01 09:23 | PDOC PROGRESS REPORT ---
Subjective Progress Note for:: 08/01/19 Subjective:: Critical Care Progress Note. Pt remains intubated. Has been restless on the vent. Reason For Visit: ARDS Physical Exam Vital Signs: Temp Pulse Resp BP Pulse Ox 98.8 F 103 H 15 102/61 100 08/01/19 08:00 08/01/19 08:36 08/01/19 08:36 08/01/19 08:00 08/01/19 08:36 Pulse Oximeter Continuous Start: 07/18/19 19:55 Freq: RTQ4 Status: Complete Protocol: Document 07/19/19 19:35 [facility] (Rec: 07/19/19 20:15 [facility] [id number]) Pulse Oximetry Assessment Oxygen Saturation (92-100) 92 Oxygen Flow Rate (L/min) 6 Oxygen Delivery Method Nasal Cannula Fraction of Inspired Oxygen (FIO2) 44 Equipment Usage Equipment in Use Continuous SpO2 Machine # [id number] Intake & Output 07/31/19 08/01/19 08/02/19 06:59 06:59 06:59 Intake Total 3289 1338 Output Total 1100 4635 15 Balance 2189 -3297 -15 Weight 55 kg 48.3 kg General appearance: PRESENT: no acute distress, other - intubated Head exam: PRESENT: atraumatic Respiratory exam: PRESENT: decreased breath sounds, unlabored Cardiovascular exam: PRESENT: RRR Murmur grade: 2 GI/Abdominal exam: PRESENT: soft Gentrourinary exam: PRESENT: indwelling catheter Results Laboratory Results: 08/01/19 04:39 08/01/19 04:39 08/01/19 08/01/19 08/01/19 04:39 04:39 04:39 WBC 10.8 H RBC 3.91 Hgb 10.4 L Hct 31.6 L MCV 81 MCH 26.6 L MCHC 32.9 RDW 17.6 H Plt Count 392 Seg Neutrophils % 54.3 Sodium 147.7 H Potassium 2.6 L* Chloride 108 H Carbon Dioxide 29 Anion Gap 11 BUN 13 Creatinine 0.91 Est GFR ( Amer) > 60 Glucose 121 H Calcium 9.0 Magnesium 1.7 07/29/19 10:45 Sputum Gram Stain - Final 07/29/19 10:45 Sputum Sputum Culture - Final C.albicans/C.dubliniensis Reduced Normal Lluvia Impressions: KUB X-Ray 07/26/19 00:00 IMPRESSION: The tip and side hole of the enteric tube project within the gastric lumen. Chest CT 07/29/19 00:00 IMPRESSION: 1. Ground-glass infiltrates more prominent on the left, suggesting multicentric infectious/inflammatory process. 2. Atelectatic changes in the left base. 3. The endotracheal tube is positioned quite low, being just above the martha. Chest X-Ray 08/01/19 06:00 IMPRESSION: STABLE APPEARANCE OF THE CHEST. SUPPORT DEVICES UNCHANGED. Assessment & Plan - Diagnosis (1) Acute respiratory failure with hypoxia Is this a current diagnosis for this admission?: Yes (2) ARDS (adult respiratory distress syndrome) Is this a current diagnosis for this admission?: Yes (3) Aspiration pneumonia due to vomitus Qualifiers: Laterality: bilateral Lung location: unspecified part of lung Qualified Code(s): J69.0 - Pneumonitis due to inhalation of food and vomit Is this a current diagnosis for this admission?: Yes (4) Down syndrome Is this a current diagnosis for this admission?: Yes (5) History of epilepsy Is this a current diagnosis for this admission?: Yes (6) Diabetes mellitus type 2 in obese Is this a current diagnosis for this admission?: Yes - Time Time Spent with patient: 35 or more minutes Total Critical Time (Minutes): 35 Level of Care: ICU Provider Note Provider Note: Assessment: Critically ill 29 yo woman with acute respiratory failure, ARDS, aspiration PNA, Down Syndrome, epilepsy, DM Plan: 1. Respiratory: acute respiratory failure. Pt reintubated on 07/29, vent day 4.This is her third intubation this hospitalization. Pt failed her SBT yesteday. Pt needs trach, but family has refused. 2. Pulmonary: ARDS, resolved. Aspiration PNA. HCAP. Day 4 vanc and zosyn. Sputum culture now positive for enrique. Will add diflucan. Pulmonary edema, s/p lasix yesterday with good response. Will d/c steroids 3. CV: HTN, resolved. [place] d/c lasix 4. Neuro: epilepsy. Continue seizure meds 5. ID: Aspiration PNA. HCAP. Day 4 vanc and zosyn. Sputum culture now positive for enrique. Will add diflucan. 6. Endocrine: DM. Accuchecks, SSI. D/C steroids 7. F/E/N:on tube feeds. Hypernatremia. Will start free water flushes 8. Prophylaxis: sq heparin 9. Ethics: spoke with sister yesterday. Family had made pt DNR. If pt is able to be extubated, they do not want her reintubated if the need arises. They have agreed to a palliative care consult. Critical care time= 35 min, excluding procedures
[2019-08-01] MEDS: VANCOMYCIN HCL 1,000 MG in DEXTROSE 5%-WATER 250 ML IV SCH ×2 (11:24→21:20)
[2019-08-01] MEDS: FLUCONAZOLE 200 MG/NS RTU 200 MG/100 ML RTUPB IV SCH (11:24)
[2019-08-01] MEDS: LEVETIRACETAM ORAL SOLN 500 MG/5 ML UDCUP NG SCH ×2 (11:25→21:20)
[2019-08-01] MEDS: AMINO AC/PROTEIN HYDR/WHEY PRO 11 GM/45 ML PKT NG SCH (11:25)
[2019-08-01] MEDS: MULTIVITAMIN ORAL LIQUID 60 ML NG SCH (11:26)
[2019-08-01] MEDS: FAMOTIDINE 20 MG TABLET NG SCH ×2 (11:26→21:20)
[2019-08-01] MEDS: LORATADINE 10 MG TABLET NG SCH (11:26)
[2019-08-01] MEDS: TOPIRAMATE 25 MG TABLET NG SCH (11:26)
[2019-08-01] MEDS: FENTANYL CITRATE INJ/PF 100 MCG/2 ML AMPUL IV PRN ×2 (15:13→22:59)
[2019-08-01 20:05] LABS: C DIFFICILE GDH NEGATIVE (NEGATIVE)
[2019-08-01] MEDS: TRAZODONE HCL 50 MG TABLET NG SCH (21:21)
[2019-08-01] MEDS: ESCITALOPRAM OXALATE 10 MG TABLET NG SCH (21:21)
[2019-08-01] MEDS: ATORVASTATIN CALCIUM 20 MG TABLET NG SCH (21:21)
[2019-08-01 21:32] LABS: VANCOMYCIN,TROUGH 25.4 ug/mL (5.0-20.0)
[2019-08-02] MEDS: ALBUTEROL SULFATE 0.083% NEB 2.5 MG/3 ML AMPUL NEB SCH ×5 (00:37→17:43)
[2019-08-02] MEDS: FENTANYL CITRATE INJ/PF 100 MCG/2 ML AMPUL IV PRN ×2 (03:32→20:36)
[2019-08-02 04:24] LABS: ABSOLUTE EOSINOPHILS # (AUTO) 0.4 10^3/uL (0.0-0.6); ABSOLUTE LYMPHOCYTES (AUTO) 2.7 10^3/uL (0.5-4.7); ABSOLUTE MONOCYTES (AUTO) 0.9 10^3/uL (0.1-1.4); ABSOLUTE NEUT (AUTO) 5.9 10^3/uL (1.7-8.2); BASOPHILS % (AUTO) 0.3 % (0-2); HEMATOCRIT 31.4 % (36.0-47.0); HEMOGLOBIN 10.3 g/dL (12.0-15.5); LYMPHOCYTES % (AUTO) 27.5 % (13-45); MEAN CORPUSCULAR HEMOGLOBIN 27.1 pg (27.0-33.4); MEAN CORPUSCULAR HGB CONC 32.9 g/dL (32.0-36.0); MEAN CORPUSCULAR VOLUME 82 fl (80-97); PLATELET COUNT 352 10^3/uL (150-450); RED BLOOD COUNT 3.82 10^6/uL (3.72-5.28); RED CELL DISTRIBUTION WIDTH 17.9 % (11.5-14.0); SEGMENTED NEUTROPHILS % (AUTO) 59.2 % (42-78); TOTAL CELLS COUNTED % (AUTO) 100 %; WHITE BLOOD COUNT 9.9 10^3/uL (4.0-10.5)
[2019-08-02] MEDS: MINERAL OIL/PETROLATUM,WHITE OPH OINT 3.5 GM OU SCH ×3 (05:30→23:05)
[2019-08-02 05:49] LABS: ANION GAP 9 (5-19); BLOOD UREA NITROGEN 12 mg/dL (7-20); CALCIUM 9.5 mg/dL (8.4-10.2); CARBON DIOXIDE 29 mmol/L (22-30); CHLORIDE 108 mmol/L (98-107); GLUCOSE 108 mg/dL (75-110)
[2019-08-02] MEDS: PIPERACILLIN SODIUM/TAZOBACTAM 3.375 GM in NORMAL SALINE 100 ML IV SCH ×3 (06:05→18:49)
[2019-08-02] MEDS: HEPARIN SOD (PORCINE) 5,000 UNIT/ML 1 ML VIAL SUBCUT SCH ×3 (06:06→23:05)
[2019-08-02] MEDS: INSULIN REG, HUMAN 100 UNIT/ML 3 ML VIAL (PYX) SUBCUT SCH ×3 (06:06→18:47)
[2019-08-02] MEDS: POTASSIUM CHLORIDE 20 MEQ PACKET NG SCH ×3 (08:11→12:48)
[2019-08-02] MEDS: FLUCONAZOLE 200 MG/NS RTU 200 MG/100 ML RTUPB IV SCH (09:17)
[2019-08-02] MEDS: AMINO AC/PROTEIN HYDR/WHEY PRO 11 GM/45 ML PKT NG SCH (09:29)
[2019-08-02] MEDS: TOPIRAMATE 25 MG TABLET NG SCH (09:36)
[2019-08-02] MEDS: FAMOTIDINE 20 MG TABLET NG SCH ×2 (09:36→23:29)
[2019-08-02] MEDS: MULTIVITAMIN ORAL LIQUID 60 ML NG SCH (09:37)
[2019-08-02] MEDS: LEVETIRACETAM ORAL SOLN 500 MG/5 ML UDCUP NG SCH ×2 (09:37→23:28)
--- NOTE | 2019-08-02 09:53 | PDOC PROGRESS REPORT ---
Subjective Progress Note for:: 08/02/19 Subjective:: Critical Care Progress Note Pt remains intubated. No acute overnight events. Reason For Visit: ARDS Physical Exam Vital Signs: Temp Pulse Resp BP Pulse Ox 99 F 103 H 15 129/105 H 99 08/02/19 08:00 08/02/19 08:25 08/02/19 08:25 08/02/19 08:00 08/02/19 08:25 Pulse Oximeter Continuous Start: 07/18/19 19:55 Freq: RTQ4 Status: Complete Protocol: Document 07/19/19 19:35 [facility] (Rec: 07/19/19 20:15 [facility] [id number]) Pulse Oximetry Assessment Oxygen Saturation (92-100) 92 Oxygen Flow Rate (L/min) 6 Oxygen Delivery Method Nasal Cannula Fraction of Inspired Oxygen (FIO2) 44 Equipment Usage Equipment in Use Continuous SpO2 Machine # [id number] Intake & Output 08/01/19 08/02/19 08/03/19 06:59 06:59 06:59 Intake Total 1338 1621 Output Total 4635 925 250 Balance -3297 696 -250 Weight 48.3 kg 48.9 kg 49.9 kg General appearance: PRESENT: no acute distress, other - intubated Respiratory exam: PRESENT: decreased breath sounds Cardiovascular exam: PRESENT: RRR Murmur grade: 2 GI/Abdominal exam: PRESENT: soft Gentrourinary exam: PRESENT: indwelling catheter Extremities exam: PRESENT: other - no edema Neurological exam: PRESENT: alert, awake Results Laboratory Results: 08/02/19 03:55 08/02/19 03:55 08/01/19 08/01/19 08/01/19 04:39 12:47 19:47 WBC RBC Hgb Hct MCV MCH MCHC RDW Plt Count Seg Neutrophils % Sodium Potassium 3.6 D Chloride Carbon Dioxide Anion Gap BUN Creatinine Est GFR ( Amer) Glucose Calcium Magnesium Triglycerides Cancelled 200 H 08/02/19 08/02/19 08/02/19 03:55 03:55 03:55 WBC 9.9 RBC 3.82 Hgb 10.3 L Hct 31.4 L MCV 82 MCH 27.1 MCHC 32.9 RDW 17.9 H Plt Count 352 Seg Neutrophils % 59.2 Sodium 146.0 H Potassium 3.0 L* Chloride 108 H Carbon Dioxide 29 Anion Gap 9 BUN 12 Creatinine 0.98 Est GFR ( Amer) > 60 Glucose 108 Calcium 9.5 Magnesium 1.8 Triglycerides Impressions: KUB X-Ray 07/26/19 00:00 IMPRESSION: The tip and side hole of the enteric tube project within the gastric lumen. Chest CT 07/29/19 00:00 IMPRESSION: 1. Ground-glass infiltrates more prominent on the left, suggesting multicentric infectious/inflammatory process. 2. Atelectatic changes in the left base. 3. The endotracheal tube is positioned quite low, being just above the martha. Chest X-Ray 08/01/19 06:00 IMPRESSION: STABLE APPEARANCE OF THE CHEST. SUPPORT DEVICES UNCHANGED. Assessment & Plan - Diagnosis (1) Acute respiratory failure with hypoxia Is this a current diagnosis for this admission?: Yes (2) ARDS (adult respiratory distress syndrome) Is this a current diagnosis for this admission?: Yes (3) Aspiration pneumonia due to vomitus Qualifiers: Laterality: bilateral Lung location: unspecified part of lung Qualified Code(s): J69.0 - Pneumonitis due to inhalation of food and vomit Is this a current diagnosis for this admission?: Yes (4) Down syndrome Is this a current diagnosis for this admission?: Yes (5) History of epilepsy Is this a current diagnosis for this admission?: Yes (6) Diabetes mellitus type 2 in obese Is this a current diagnosis for this admission?: Yes - Time Time Spent with patient: 35 or more minutes Total Critical Time (Minutes): 35 Provider Note Provider Note: Assessment: Critically ill 29 yo woman with acute respiratory failure, ARDS, aspiration PNA, Down Syndrome, epilepsy, DM Plan: 1. Respiratory: acute respiratory failure. Pt reintubated on 07/29, vent day 5.This is her third intubation this hospitalization. Pt has been on an SBT today. Will extubate. Pt is DNR and will not be reintubated. Family wants to take her home with hospice. 2. Pulmonary: ARDS, resolved. Aspiration PNA. HCAP. Day 5 vanc and zosyn. Sputum culture now positive for enrique. Day 2 diflucan. Pulmonary edema, 3. CV: heart rate and BP acceptable 4. Neuro: epilepsy. Continue seizure meds 5. ID: Aspiration PNA. HCAP. Day 5 vanc and zosyn. Sputum culture now positive for enrique. Day2 diflucan. 6. Endocrine: DM. Accuchecks, SSI. 7. F/E/N:on tube feeds. Hypernatremia,resolving. Continue free water flushes 8. Prophylaxis: sq heparin 9. Ethics: Pt is DNR. Palliative has been consulted. I spoke with her sister today. Family wants to take pt home with Hospice. Will extubate pt today. Hopefully pt can home with hospice later today or tomorrow. Critical care time= 35 min, excluding procedures
[2019-08-02] MEDS: VANCOMYCIN HCL 1,000 MG in DEXTROSE 5%-WATER 250 ML IV SCH ×2 (10:03→23:04)
[2019-08-02 15:58] LABS: C DIFFICILE GDH NEGATIVE (NEGATIVE)
[2019-08-02] MEDS ORDERED: ALBUTEROL SULFATE 0.083% NEB 2.5 MG/3 ML AMPUL NEB PRN (19:30)
[2019-08-02] MEDS: ATORVASTATIN CALCIUM 20 MG TABLET NG SCH (23:29)
[2019-08-02] MEDS: TRAZODONE HCL 50 MG TABLET NG SCH (23:29)
[2019-08-02] MEDS: ESCITALOPRAM OXALATE 10 MG TABLET NG SCH (23:29)
[2019-08-03] MEDS: PIPERACILLIN SODIUM/TAZOBACTAM 3.375 GM in NORMAL SALINE 100 ML IV SCH ×2 (00:32→05:59)
[2019-08-03] MEDS: INSULIN REG, HUMAN 100 UNIT/ML 3 ML VIAL (PYX) SUBCUT SCH ×2 (00:32→06:00)
[2019-08-03 04:27] LABS: ABSOLUTE EOSINOPHILS # (AUTO) 0.3 10^3/uL (0.0-0.6); ABSOLUTE LYMPHOCYTES (AUTO) 1.9 10^3/uL (0.5-4.7); ABSOLUTE MONOCYTES (AUTO) 0.6 10^3/uL (0.1-1.4); ABSOLUTE NEUT (AUTO) 5.8 10^3/uL (1.7-8.2); BASOPHILS % (AUTO) 0.6 % (0-2); EOSINOPHILS % (AUTO) 3.9 % (0-6); HEMATOCRIT 38.1 % (36.0-47.0); LYMPHOCYTES % (AUTO) 22.2 % (13-45); MEAN CORPUSCULAR HEMOGLOBIN 27.4 pg (27.0-33.4); MEAN CORPUSCULAR HGB CONC 32.8 g/dL (32.0-36.0); MEAN CORPUSCULAR VOLUME 84 fl (80-97); MONOCYTES % (AUTO) 7.4 % (3-13); PLATELET COUNT 386 10^3/uL (150-450); RED BLOOD COUNT 4.56 10^6/uL (3.72-5.28); RED CELL DISTRIBUTION WIDTH 18.2 % (11.5-14.0); SEGMENTED NEUTROPHILS % (AUTO) 65.9 % (42-78); TOTAL CELLS COUNTED % (AUTO) 100 %; WHITE BLOOD COUNT 8.7 10^3/uL (4.0-10.5)
[2019-08-03 04:34] LABS: HEMOGLOBIN 12.5 g/dL (12.0-15.5)
[2019-08-03] MEDS: FENTANYL CITRATE INJ/PF 100 MCG/2 ML AMPUL IV PRN (04:36)
[2019-08-03] MEDS: MINERAL OIL/PETROLATUM,WHITE OPH OINT 3.5 GM OU SCH (06:00)
[2019-08-03] MEDS: HEPARIN SOD (PORCINE) 5,000 UNIT/ML 1 ML VIAL SUBCUT SCH (06:01)
--- NOTE | 2019-08-03 09:30 | PDOC DISCHARGE SUMMARY ---
Impression - Admit/DC Date/PCP Admission Date/Primary Care Provider: 07/19/19 23:55 FREDDY RODNEY, Discharge Date: 08/03/19 - Discharge Diagnosis (1) Acute respiratory failure with hypoxia Is this a current diagnosis for this admission?: Yes (2) ARDS (adult respiratory distress syndrome) Is this a current diagnosis for this admission?: Yes (3) Aspiration pneumonia due to vomitus Is this a current diagnosis for this admission?: Yes (4) Down syndrome Is this a current diagnosis for this admission?: Yes (5) History of epilepsy Is this a current diagnosis for this admission?: Yes (6) Diabetes mellitus type 2 in obese Is this a current diagnosis for this admission?: Yes - Additional Information Resuscitation Status: Do Not Resuscitate Discharge Diet: As Tolerated Discharge Activity: Activity As Tolerated Referrals: ROSAURA PETTIT DDS [ACTIVE STAFF] - 07/31/19 10:30 am Home Medications: Atorvastatin Calcium [Lipitor 20 mg Tablet] 20 mg PO QHS 07/17/19 Escitalopram Oxalate [Lexapro 10 mg Tablet] 10 mg PO DAILY 07/17/19 Loratadine [Claritin 10 mg Tablet] 10 mg PO DAILY 07/17/19 Sitagliptin Phos/Metformin HCl [Janumet 50-1,000 Mg Tablet] 1 each PO BIDBS 07/17/19 Topiramate [Topamax 25 mg Tablet] 25 mg PO QHS 07/17/19 Trazodone HCl [Desyrel] 100 mg PO QHS 07/17/19 Multivitamin [Tab-A-Wilber (Multiple Vitamin) Tablet] 1 tab PO DAILY 07/18/19 History of Present Illiness History of Present Illness: VIOLETTA SINGH is a 29 year old female Pt is a 29 yo woman with Down Syndrome and epilepsy who was admitted to the hospital for respirator failure after undergoing a dental extraction on 07/18. Hospital Course Hospital Course: Pt developed respiratory failure due to aspiration PNA and ARDS. She was intubated and treated with broad spectrum ATBX. Pt was extubated twice but required reintubation. After her third intubation, it was decided that pt needed a trach, but the family refused. The made pt DNR and agreed to hospice. Pt was extubated on 08/02 and will be discharged home with hospice today. Assessment: Critically ill 29 yo woman with acute respiratory failure, ARDS, aspiration PNA, Down Syndrome, epilepsy, DM Plan: 1. Respiratory: acute respiratory failure. Pt reintubated on 07/29. Pt extubated on 08/02 after 5 days on the vent. This was her third intubation during this hospitalizaion.. 2. Pulmonary: ARDS, resolved. Aspiration PNA. HCAP. Day 6 vanc and zosyn. Sputum culture now positive for enrique. Day 3 diflucan. Will d/c ATBX as pt is comfort measures 3. CV: heart rate and BP acceptable 4. Neuro: epilepsy. Continue seizure meds 5. ID: Aspiration PNA. HCAP. Will d/c ATBX as pt is comfort measures 6. Endocrine: DM. Accuchecks, SSI. 7. F/E/N. Tube feeds off. Pt has no enteral access 8. Prophylaxis: sq heparin 9. Ethics: Pt is DNR and comfort measures. To go home today with hospice. Physical Exam Vital Signs: Temp Pulse Resp BP Pulse Ox 99.3 F 108 H 14 143/95 H 97 08/03/19 08:00 08/03/19 08:00 08/03/19 08:00 08/03/19 08:00 08/03/19 08:00 Pulse Oximeter Continuous Start: 07/18/19 19:55 Freq: RTQ4 Status: Complete Protocol: Document 07/19/19 19:35 [facility] (Rec: 07/19/19 20:15 [facility] [id number]) Pulse Oximetry Assessment Oxygen Saturation (92-100) 92 Oxygen Flow Rate (L/min) 6 Oxygen Delivery Method Nasal Cannula Fraction of Inspired Oxygen (FIO2) 44 Equipment Usage Equipment in Use Continuous SpO2 Machine # [id number] Intake & Output 08/02/19 08/03/19 08/04/19 06:59 06:59 05:59 Intake Total 1721 569 Output Total 227 0040 75 Balance 796 -1701 -75 Weight 48.9 kg 48.5 kg General appearance: PRESENT: no acute distress Respiratory exam: PRESENT: decreased breath sounds, unlabored Cardiovascular exam: PRESENT: RRR GI/Abdominal exam: PRESENT: soft Gentrourinary exam: PRESENT: indwelling catheter Neurological exam: PRESENT: awake Results Laboratory Results: WBC 8.7 10^3/uL (4.0-10.5) 08/03/19 04:02 RBC 4.56 10^6/uL (3.72-5.28) 08/03/19 04:02 Hgb 12.5 g/dL (12.0-15.5) D 08/03/19 04:02 Hct 38.1 % (36.0-47.0) 08/03/19 04:02 MCV 84 fl (80-97) 08/03/19 04:02 MCH 27.4 pg (27.0-33.4) 08/03/19 04:02 MCHC 32.8 g/dL (32.0-36.0) 08/03/19 04:02 RDW 18.2 % (11.5-14.0) H 08/03/19 04:02 Plt Count 386 10^3/uL (150-450) 08/03/19 04:02 Lymph % (Auto) 22.2 % (13-45) 08/03/19 04:02 Sibley % (Auto) 7.4 % (3-13) 08/03/19 04:02 Eos % (Auto) 3.9 % (0-6) 08/03/19 04:02 Baso % (Auto) 0.6 % (0-2) 08/03/19 04:02 Absolute Neuts (auto) 5.8 10^3/uL (1.7-8.2) 08/03/19 04:02 Absolute Lymphs (auto) 1.9 10^3/uL (0.5-4.7) 08/03/19 04:02 Absolute Monos (auto) 0.6 10^3/uL (0.1-1.4) 08/03/19 04:02 Absolute Eos (auto) 0.3 10^3/uL (0.0-0.6) 08/03/19 04:02 Absolute Basos (auto) 0.0 10^3/uL (0.0-0.2) 08/03/19 04:02 Seg Neutrophils % 65.9 % (42-78) 08/03/19 04:02 Carbonic Acid 1.02 mmol/L (1.05-1.35) L 07/30/19 08:45 HCO3/H2CO3 Ratio 21:1 07/30/19 08:45 ABG pH 7.42 (7.35-7.45) 07/30/19 08:45 ABG pCO2 34.0 mmHg (35-45) L 07/30/19 08:45 ABG pO2 74.5 mmHg (80-100) L 07/30/19 08:45 ABG HCO3 21.8 mmol/L (20-24) 07/30/19 08:45 ABG Total CO2 22.8 mmol/L (21-25) 07/30/19 08:45 ABG O2 Saturation 95.4 % (94-98) 07/30/19 08:45 ABG Base Excess -2.1 mmol/L 07/30/19 08:45 FiO2 21% 07/30/19 08:45 Sodium 146.0 mmol/L (137-145) H 08/02/19 03:55 Potassium 3.0 mmol/L (3.6-5.0) L* 08/02/19 03:55 Chloride 108 mmol/L (98-107) H 08/02/19 03:55 Carbon Dioxide 29 mmol/L (22-30) 08/02/19 03:55 Anion Gap 9 (5-19) 08/02/19 03:55 BUN 12 mg/dL (7-20) 08/02/19 03:55 Creatinine 0.98 mg/dL (0.52-1.25) 08/02/19 03:55 Est GFR ( Amer) > 60 (>60) 08/02/19 03:55 Est GFR (MDRD) Non-Af > 60 (>60) 08/02/19 03:55 Glucose 108 mg/dL (75-110) 08/02/19 03:55 POC Glucose 145 mg/dL (70-110) H 08/03/19 05:58 Hemoglobin A1c % 6.9 % (4.7-6.0) H 07/19/19 03:38 Calcium 9.5 mg/dL (8.4-10.2) 08/02/19 03:55 Phosphorus 2.6 mg/dL (2.5-4.5) 07/26/19 04:00 Magnesium 1.9 mg/dL (1.6-2.3) 08/03/19 04:02 Total Bilirubin 0.4 mg/dL (0.2-1.3) 07/21/19 04:30 Direct Bilirubin 0.2 mg/dL (0.0-0.4) 07/21/19 04:30 Neonat Total Bilirubin Not Reportable 07/21/19 04:30 Neonat Direct Bilirubin Not Reportable 07/21/19 04:30 Neonat Indirect Bili Not Reportable 07/21/19 04:30 AST 40 U/L (14-36) H 07/21/19 04:30 ALT 18 U/L (<35) 07/21/19 04:30 Alkaline Phosphatase 67 U/L (38-126) 07/21/19 04:30 Total Protein 6.3 g/dL (6.3-8.2) 07/21/19 04:30 Albumin 2.9 g/dL (3.5-5.0) L 07/21/19 04:30 Triglycerides 200 mg/dL (<150) H 08/01/19 12:47 Serum HCG, Qual NEGATIVE (NEGATIVE) 07/18/19 12:24 Stl C. Difficile GDH Ag NEGATIVE (NEGATIVE) 08/02/19 11:50 Stl C.difficile Tox A&B NEGATIVE (NEGATIVE) 08/02/19 11:50 Time Trough Drawn 194608/01/19 19:47 Vancomycin Trough 25.4 ug/mL (5.0-20.0) H 08/01/19 19:47 Impressions: Chest X-Ray 07/18/19 00:00 IMPRESSION: Increased opacities at the lung bases may represent atelectasis. Decreased lung volumes could be secondary to underinflation. Recommend follow-up. Chest X-Ray 07/19/19 00:00 IMPRESSION: 1. Endotracheal tube tip within 1 cm of martha. Consider repositioning. 2. Nasogastric tube tip in the stomach 3. Significantly worse dense diffuse bilateral infiltrates Chest X-Ray 07/21/19 00:00 IMPRESSION: 1. ET tube tip is in the lower thoracic trachea, consider retraction as above. 2. Improvement in bilateral edema and/or pneumonia. KUB X-Ray 07/21/19 00:00 IMPRESSION: Lines and tubes as above. Nonobstructive bowel gas pattern. Stool within the transverse and descending colon. Chest X-Ray 07/22/19 06:00 IMPRESSION: 1. Overall, no significant interval change when compared to the most recent study performed on 07/21/2019. Grossly stable bilateral pulmonary edema suspected. 3. Endotracheal tube and feeding tube present as described above. KUB X-Ray 07/23/19 00:00 IMPRESSION: The tip of the enteric tube projects past the gastroesophageal junction and within the gastric antrum. Chest X-Ray 07/23/19 06:00 IMPRESSION: Decreased asymmetric airspace opacities as detailed above. Chest X-Ray 07/24/19 06:00 IMPRESSION: No interval change. The endotracheal tube lies at the level the martha. Chest X-Ray 07/25/19 00:00 IMPRESSION: Tube placement as described. No acute finding. Chest X-Ray 07/25/19 06:00 IMPRESSION: STABLE APPEARANCE OF THE CHEST. SUPPORT DEVICES UNCHANGED. KUB X-Ray 07/26/19 00:00 IMPRESSION: The tip and side hole of the enteric tube project within the gastric lumen. Chest X-Ray 07/26/19 06:00 IMPRESSION: 1. Tubes and lines as above. 2. Stable asymmetric opacity in the left base and blunting of the left lateral costophrenic sulcus. Chest CT 07/29/19 00:00 IMPRESSION: 1. Ground-glass infiltrates more prominent on the left, suggesting multicentric infectious/inflammatory process. 2. Atelectatic changes in the left base. 3. The endotracheal tube is positioned quite low, being just above the martha. Chest X-Ray 07/29/19 00:00 IMPRESSION: Decreased asymmetric opacity in the left base consistent with a resolving pneumonia. Chest X-Ray 07/29/19 00:00 IMPRESSION: 1. Tubes and lines as above. 2. Low inspiratory lung volumes with an asymmetric opacity in the left base that is unchanged from the radiograph at 0927 hours. Chest X-Ray 07/30/19 06:00 IMPRESSION: 1. Tubes and lines as above. 2. Subtle asymmetric opacity in the left base and blunting of the left lateral costophrenic sulcus. Chest X-Ray 07/31/19 06:00 IMPRESSION: Endotracheal tube tip low-lying and overlying the left main stem bronchus. Recommend retraction by 2-3 cm. Findings discussed with Yfn MONGE at 0836 hours on 07/31/2019. Chest X-Ray 07/31/19 09:18 IMPRESSION: Retraction of the endotracheal tube with tip now 1.1 cm above the martha. Chest X-Ray 08/01/19 06:00 IMPRESSION: STABLE APPEARANCE OF THE CHEST. SUPPORT DEVICES UNCHANGED. Plan Time Spent: Less than 30 Minutes Stroke Is this a Stroke Patient?: No Acute Heart Failure - Is this a Heart Failure Patient?: No
[2019-08-03 14:34] VITALS: BP 155/116
== END 2019-08-03 14:35 | disposition hospice, home (50) | DRG 981 ==
LOC: OROUT 11:49 → 3S 19:37 → ICU 07-19 23:54 → OBSVTOIN 07-19 23:55
PROVIDERS: ADMIT Emergency Medicine; ATTEND Internal Medicine Critical Care Medicine
PROC: 0CDXXZ1 Extraction of Lower Tooth, Multiple, External Approach (ICD-10-PCS; 2019-07-18)
PROC: 0CDWXZ1 Extraction of Upper Tooth, Multiple, External Approach (ICD-10-PCS; 2019-07-18)
PROC: 0NBR0ZZ Excision of Maxilla, Open Approach (ICD-10-PCS; principal; 2019-07-18 12:45)
PROC: 5A1955Z Respiratory Ventilation, Greater than 96 Consecutive Hours (ICD-10-PCS; 2019-07-20)
PROC: 0BH17EZ Insertion of Endotracheal Airway into Trachea, Via Natural or Artificial Opening (ICD-10-PCS; 2019-07-20)
PROC: 0BH17EZ Insertion of Endotracheal Airway into Trachea, Via Natural or Artificial Opening (ICD-10-PCS; 2019-07-25)
PROC: 5A1945Z Respiratory Ventilation, 24-96 Consecutive Hours (ICD-10-PCS; 2019-07-25)
PROC: 0BH17EZ Insertion of Endotracheal Airway into Trachea, Via Natural or Artificial Opening (ICD-10-PCS; 2019-07-29)
PROC: 5A1955Z Respiratory Ventilation, Greater than 96 Consecutive Hours (ICD-10-PCS; 2019-07-29)
DX: J95.821 Acute postprocedural respiratory failure (principal); J69.0 Pneumonitis due to inhalation of food and vomit; Q91.7 Trisomy 13, unspecified; B37.89 Other sites of candidiasis; E87.0 Hyperosmolality and hypernatremia; K02.9 Dental caries, unspecified; Z66 Do not resuscitate; E87.6 Hypokalemia; I10 Essential (primary) hypertension; E78.5 Hyperlipidemia, unspecified; E11.8 Type 2 diabetes mellitus with unspecified complications; I08.3 Combined rheumatic disorders of mitral, aortic and tricuspid valves; I27.20 Pulmonary hypertension, unspecified; G40.909 Epilepsy, unspecified, not intractable, without status epilepticus; F34.1 Dysthymic disorder; Q66.89 Other specified congenital deformities of feet
CPT/HCPCS: 170; 31500; 36415; 71045; 71250; 74018; 80048; 80053; 80201; 80202; 82803; 82962; 83036; 83735; 84100; 84132; 84478; 84703; 85025; 85027; 87040; 87070; 87205; 87324; 87449; 93306; 94002; 94003; 94640; 94660; 94762; 94799; 95819; 99291; 99292; B4155; C1887; G0378; J0330; J0360; J1100; J1265; J1450; J1644; J1720; J1815; J1940; J1953; J1956; J2060; J2250; J2270; J2543; J2704; J2765; J2920; J3010; J3360; J3370; J3490; J7030; J7050; J7060; J7120; J7614; S0028